=== PATIENT | male | born 1965 | race Caucasian/White ===

== ENCOUNTER 2021-06-06 18:36 | Inpatient (IN) | payer OTHER ==
[~2021-06-06] VITALS: Ht 182.9 cm; Wt 99.8 kg
[~2021-06-06 18:36] MED LIST: ASPI81CH PO; CYCL10 PO; HYDACE5 PO; HYDMOR4 PO; IBUHYD PO; NAPR500 PO; RANI150 PO; RXHYDMOR2 PO
[2021-06-06 19:30] LABS: Hematocrit 43.7 % (37.0-53.0); Hemoglobin 15.1 g/dL (13.5-17.5); Mean Corpuscular HGB 30.9 pg (26.0-34.0); Mean Corpuscular HGB Conc 34.6 g/dL (31.5-36.5); Mean Corpuscular Volume 90 fL (80-100); Platelet Count 209 K/mm3 (150-400); RDW Coefficient Variation 13.1 % (11.7-14.2); RDW Standard Deviation 43.4 fL (35.1-46.3); Red Blood Cell Count 4.88 M/mm3 (4.30-5.90); White Blood Cell Count 10.96 K/mm3 (4.00-11.30)
[2021-06-06 19:52] LABS: Alanine Aminotransfer (ALT/SGP 53 U/L (12-78); Albumin, Blood 3.1 g/dL (3.4-5.0); Albumin/Globulin Ratio 0.7 (0.8-1.8); Alk Phos 47 U/L (50-136); Anion Gap 8 mmol/L (6-16); Aspartate Aminotrans (AST/SGOT 110 U/L (12-37); Bilirubin, Total 0.3 mg/dL (0.1-1.0); Blood Urea Nitrogen 18 mg/dL (8-24); Bun/Creatinine Ratio 18.7 (12.0-20.0); CO2, Blood 25 mmol/L (21-32); Calcium, Blood 8.7 mg/dL (8.5-10.1); Chloride, Blood 101 mmol/L (98-108); Creatinine, Blood 0.96 mg/dL (0.60-1.20); Globulin, Blood 4.4 g/dL (2.2-4.0); Glomerular Filtration Rate >60 (60-); Glucose, Blood 153 mg/dL (70-99); Potassium, Blood 3.8 mmol/L (3.5-5.5); Sodium, Blood 134 mmol/L (136-145); Total Protein, Blood 7.5 g/dL (6.4-8.2)
[2021-06-06 19:56] LABS: BAND PERCENT MAN 1 % (0-8); BASOPHILS PERCENT MAN 0 % (0-2); EOSINOPHILS PERCENT MAN 0 % (0-6); LYMPHOCYTES ABSOLUTE MAN 0.43 K/mm3 (0.84-5.20); LYMPHOCYTES PERCENT MAN 4 % (21-46); MONOCYTES ABSOLUTE MAN 0.21 K/mm3 (0.16-1.47); MONOCYTES PERCENT MAN 2 % (4-13); SEG NEUTROPHILS PERCENT MAN 93 % (41-73); TOTAL CELLS COUNTED 100
[2021-06-06 21:10] LABS: SARS-Cov-2 (COVID-19) PCR, MMC POSITIVE (NEGATIVE)
[2021-06-07 04:00] LABS: Alanine Aminotransfer (ALT/SGP 54 U/L (12-78); Albumin, Blood 2.7 g/dL (3.4-5.0); Albumin/Globulin Ratio 0.6 (0.8-1.8); Alk Phos 47 U/L (50-136); Anion Gap 9 mmol/L (6-16); Aspartate Aminotrans (AST/SGOT 106 U/L (12-37); Bilirubin, Total 0.3 mg/dL (0.1-1.0); Blood Urea Nitrogen 16 mg/dL (8-24); Bun/Creatinine Ratio 15.2 (12.0-20.0); CO2, Blood 23 mmol/L (21-32); Calcium, Blood 8.4 mg/dL (8.5-10.1); Chloride, Blood 101 mmol/L (98-108); Creatinine, Blood 1.05 mg/dL (0.60-1.20); Globulin, Blood 4.5 g/dL (2.2-4.0); Glomerular Filtration Rate >60 (60-); Glucose, Blood 173 mg/dL (70-99); Potassium, Blood 4.1 mmol/L (3.5-5.5); Sodium, Blood 133 mmol/L (136-145); Total Protein, Blood 7.2 g/dL (6.4-8.2)
--- NOTE | 2021-06-07 06:12 | NUR ---
SHIFT SUMMARY PATIENT HAS NOT SLEPT WELL THRU NIGHT. NIGHT HAS PROGRESSED SO HAS HIS OXYGEN NEEDS. STARTED @ 8L NC, INCREASED TO 15L OXYMIZER, THEN REQUIRING NON-REBREATHER OVER THAT, MOVED TO AIR-VO, MAXED SETTINGS QUICKLY, THEN TO CPAP, PRESSURE = 14, 80% AT LAST VIEWING. PT URINATES PER URINAL. VSS. NO C/O PAIN. ASSESSMENT IS CHARTED. WILL CONTINUE TO MONITOR.
[2021-06-07 08:57] LABS: BASOPHILS ABSOLUTE AUTO 0.02 K/mm3 (0.00-0.23); BASOPHILS PERCENT AUTO 0 % (0-2); EOSINOPHILS PERCENT AUTO 0 % (0-6); Hemoglobin 14.1 g/dL (13.5-17.5); IMMATURE GRAN PERCENT AUTO 2 % (0-1); LYMPHOCYTES ABSOLUTE AUTO 0.61 K/mm3 (0.84-5.20); LYMPHOCYTES PERCENT AUTO 5 % (21-46); MONOCYTES ABSOLUTE AUTO 0.18 K/mm3 (0.16-1.47); MONOCYTES PERCENT AUTO 2 % (4-13); Mean Corpuscular HGB 30.5 pg (26.0-34.0); Mean Corpuscular HGB Conc 34.4 g/dL (31.5-36.5); Mean Corpuscular Volume 89 fL (80-100); Mean Platelet Volume 10.6 fL (9.1-12.4); NEUTROPHILS ABSOLUTE AUTO 10.32 K/mm3 (1.96-9.15); NEUTROPHILS PERCENT AUTO 91 % (41-73); Platelet Count 230 K/mm3 (150-400); RDW Coefficient Variation 13.2 % (11.7-14.2); RDW Standard Deviation 42.9 fL (35.1-46.3); Red Blood Cell Count 4.62 M/mm3 (4.30-5.90); White Blood Cell Count 11.33 K/mm3 (4.00-11.30)
[2021-06-07 09:59] LABS: PCO2 Arterial 32.6 mmHg (35-45); PO2 Arterial 66.2 mmHg (80-100); pH Blood Arterial 7.51 (7.35-7.45)
[2021-06-07 10:51] LABS: C-REACTIVE PROTEIN, EXT RANGE >19.000 mg/dL (0.000-0.300); Ferritin, Serum 2712 ng/mL (26-388)
[2021-06-07 14:45] LABS: Source, Urine Catheter
[2021-06-07 14:50] LABS: Appearance, Urine Hazy (Clear); Bilirubin, Urine Neg (Neg); Blood, Urine 4+ (Neg); Color, Urine Yellow (P-Yellow); Glucose Qualitative, Urine Neg (Neg); Ketones, Urine Neg (Neg); Leukocyte Esterase, Urine Neg (Neg); Nitrite, Urine Neg (Neg); Protein, Urine 3+ (Neg); Urobilinogen, Urine NORM (Normal)
[2021-06-07 15:07] LABS: Amorphous Mod (0-Heavy); Bacteria Few /hpf; Red Blood Cells, Urine 0-2 /hpf (0-2); Squamous Epithelial Cells Few /hpf (Few); White Blood Cells, Urine 0-2 /hpf (0-5)
--- NOTE | 2021-06-07 15:18 | NUR ---
PT UPDATE... AT APROX 1400 THE PT'S O2 SATS STARTED TO DROP, THIS RN INCREASED THE PT'S FIO2 UP TO 100% ON CPAP AT 14. RT TORSTEN WAS CALLED AND DR. GARCIA NOTIFIED. PT WAS CHANGED TO BIPAP AT 18/8 AND 80% THIS LASTED APROX 45 MINS BUT THEN HIS O2 SATS STARTED TO DROP AGAIN, PT'S FIO2 WAS INCREASED BACK UP TO 100% PT'S CURRENT O2 SATS ARE 91% ON BIPAP AT 18/8 AND 100%. A CRANE WAS PLACED D/T PT'S ACTIVITY INTOLERANCE. PT'S SON AT THE BEDSIDE FOR VISITING HOURS. AT 1515 DR. GARCIA AT THE BEDSIDE TO ASSESS THE PT. WILL CONTINUE TO MONITOR THE PT.
--- NOTE | 2021-06-07 19:26 | NUR ---
SHIFT SUMMARY.... SINCE PREVIOUS NOTE ON THIS PT THE PT DID REALLY WELL WITH O2 SATS >90% ON THE BIPAP AT 18/8 AND 100%. HOWEVER AT APROX 1800 THE PT HAD A COUGHING FIT AND HIS O2 SATS STARTED TO DROP DOWN TO THE MID 80'S AND THE PT BECAME HYPERTENISVE WITH SBPs IN THE 180'S. PT WAS GIVEN 0.5MG OF IV ATIVAN WHICH HELPED THE PT RELAX AND IMPROVED HIS BREATHING/O2 SATS A LITTLE BIT, THEN THIS RN HAD THE PT ROLL OVER ON HIS LEFT SIDE A MUCH HE COULD TOLERATE IN AN ATTEMPT TO PRONE, THIS ALSO HELPED THE PT'S O2 SATS IMPROVE TO THE HIGH 80'S LOW 90'S. DR. GARCIA NOTIFIED OF THESE NEW CHANGES, NEW ORDERS FOR IV HYDRALAZINE AND TO CHANGE THE BIPAP SETTINGS TO 18/12 100%. PT'S SON IS AT THE BEDSIDE, HE WAS UPDATED ON THE PT'S CONDITION. REPORT GIVEN TO ONCOMING TIANA GASTELUM.
[2021-06-08 04:47] LABS: BASOPHILS ABSOLUTE AUTO 0.01 K/mm3 (0.00-0.23); BASOPHILS PERCENT AUTO 0 % (0-2); EOSINOPHILS PERCENT AUTO 0 % (0-6); Hematocrit 38.8 % (37.0-53.0); Hemoglobin 13.1 g/dL (13.5-17.5); IMMATURE GRAN PERCENT AUTO 1 % (0-1); LYMPHOCYTES ABSOLUTE AUTO 0.67 K/mm3 (0.84-5.20); LYMPHOCYTES PERCENT AUTO 8 % (21-46); MONOCYTES ABSOLUTE AUTO 0.39 K/mm3 (0.16-1.47); MONOCYTES PERCENT AUTO 5 % (4-13); Mean Corpuscular HGB 30.3 pg (26.0-34.0); Mean Corpuscular HGB Conc 33.8 g/dL (31.5-36.5); Mean Corpuscular Volume 90 fL (80-100); Mean Platelet Volume 10.5 fL (9.1-12.4); NEUTROPHILS ABSOLUTE AUTO 6.77 K/mm3 (1.96-9.15); NEUTROPHILS PERCENT AUTO 85 % (41-73); Platelet Count 279 K/mm3 (150-400); RDW Coefficient Variation 13.4 % (11.7-14.2); RDW Standard Deviation 44.5 fL (35.1-46.3); Red Blood Cell Count 4.32 M/mm3 (4.30-5.90); White Blood Cell Count 7.94 K/mm3 (4.00-11.30)
[2021-06-08 05:10] LABS: Albumin, Blood 2.4 g/dL (3.4-5.0); Anion Gap 6 mmol/L (6-16); Blood Urea Nitrogen 25 mg/dL (8-24); Bun/Creatinine Ratio 22.3 (12.0-20.0); CO2, Blood 27 mmol/L (21-32); Calcium, Blood 8.7 mg/dL (8.5-10.1); Chloride, Blood 104 mmol/L (98-108); Creatinine, Blood 1.12 mg/dL (0.60-1.20); Glomerular Filtration Rate >60 (60-); Glucose, Blood 213 mg/dL (70-99); Potassium, Blood 4.3 mmol/L (3.5-5.5); Sodium, Blood 137 mmol/L (136-145)
--- NOTE | 2021-06-08 05:11 | NUR ---
SHIFT SUMMARY PATIENT HAS SLEPT WELL THRU NIGHT. SOME IMPROVEMENT IN RESPIRATORY EFFORT, HOWEVER HAVE INCREASED EPAP TO 12 FROM 8 EARLIER IN SHIFT. MAINTAINING SPO2 ~ 88-[address] GARCIA'S ORDERS. NO C/O PAIN, DYSPNEA. ASSESSMENT IS CHARTED. WILL CONTINUE TO MONITOR.
--- NOTE | 2021-06-08 07:30 | NUR ---
ASSUMED CARE REPORT FROM ORIANA MONTIEL. PT RESTING IN BED. WAKES c VERBAL STIMULI. A&OX 4. PT STATES THE HE IS BREATHING "OK". DENIES NEEDS OTHER THAN REQUESTING ANXIETY MEDS. GIVEN. MANN, ABLE TO REPOSITION SELF INDEPENDENTLY. BIPAP IN PLACE, 18/100%. ELBOW ON MASK CHANGED, ORAL CARE PROVIDED. LUNGS DIMINISHED THROUGHOUT. DRY COUGH. ABLE TO CLEAR SECRETIONS. GOAL TO MAINTAIN SATS >86%. NSR, RATE 70'S. BP STABLE. LR INFUSING AT 75 ML/HR. CRANE PATENT, DRAINING CLEAR YELLOW URINE TO GRAVITY. WILL CONTINUE TO MONITOR.
--- NOTE | 2021-06-08 18:04 | NUR ---
SHIFT SUMMARY PT REMAINED ON BIPAP 100% ENTIRE SHIFT. UNABLE TO TAKE BREAKS D/T O2 SATS. ORAL CARE PROVIDED THROUGH ELBOW. O2 SATS 86-93% THIS SHIFT. LUNGS DIM THROUGHOUT. DRY COUGH. A&OX 4. PT SLEPT MOST OF SHIFT. VISITED c SON FOR 3 HOURS. BP STABLE, HR 70'S, NSR. CRANE PATENT, DRAINING TO GRAVITY. LR CONTINUES AT 75 ML/HR. PT ABLE TO SHIFT AND REPOSITION SELF IN BED. WILL CONTINUE TO MONITOR UNTIL REPORT TO ONCOMING NURSE.
[2021-06-09 04:19] LABS: Albumin, Blood 2.4 g/dL (3.4-5.0); Anion Gap 5 mmol/L (6-16); Blood Urea Nitrogen 26 mg/dL (8-24); Bun/Creatinine Ratio 26.9 (12.0-20.0); CO2, Blood 28 mmol/L (21-32); Calcium, Blood 8.5 mg/dL (8.5-10.1); Chloride, Blood 108 mmol/L (98-108); Creatinine, Blood 0.97 mg/dL (0.60-1.20); Glomerular Filtration Rate >60 (60-); Glucose, Blood 202 mg/dL (70-99); Phosphorus, Blood 3.2 mg/dL (2.5-4.9); Potassium, Blood 4.5 mmol/L (3.5-5.5); Sodium, Blood 141 mmol/L (136-145)
--- NOTE | 2021-06-09 04:39 | NUR ---
SHIFT SUMMARY PATIENT HAS SLEPT WELL THRU NIGHT. HAVE NOTICED THAT WHILE PT IS DEEPLY ASLEEP, OR FOR ABOUT AN HOUR AFTER ATIVAN ADMINISTRATION, PT MAINTAINS SPO2 ~ 92%, MAY HAVE NEED FOR PRECEDEX, WILL BRING UP WITH PHYSICIAN. NO C/O PAIN. ASSESSMENT IS CHARTED. VSS. WILL CONTINUE TO MONITOR.
[2021-06-09 06:06] LABS: PCO2 Arterial 37.7 mmHg (35-45); PO2 Arterial 55.2 mmHg (80-100); pH Blood Arterial 7.49 (7.35-7.45)
--- NOTE | 2021-06-09 07:46 | NUR ---
AM NOTE... ASSUMED CARE OF PT AT 0700, PT IS A&Ox4. PT IS ON BIPAP AT 18/14 AND 100% FIO2 WITH O2 SATS 88-90%. L/S CLEAR AND VERY DIM T/O RR IN THE 30'S-40'S. PT'S O2 SATS DROP VERY QUICKLY WITH ANY TYPE OF ACTIVITY BUT PT IS ABLE TO SLOWLY RECOVER AT THIS TIME. PT IS IN NSR IN THE 70'S WITH A STABLE BP. NO EDEMA NOTED ON ASSESSMENT. BT PRESENT AND HYPOACTIVE, ABD HAS MILD DISTENTION AND IS FIRM BUT NONTENDER TO PALP. PT'S CRANE IS PATENT AND DRAINING CLEAR DARK YELLOW URINE TO GRAVITY. PT HAS NOT HAD A BM SINCE THE 4TH. LR RUNNING AT 75MLS/HR. ORAL CARE DONE THIS AM WITH THE BIPAP ORAL CARE KITS. CALL LIGHT IN REACH WILL CONITNUE TO MONITOR.
--- NOTE | 2021-06-09 11:22 | NUR ---
PT UPDATE.... PT WAS STARTED ON PRECEDEX AT 0.3MCG/KG/HR D/T PT'S INCREASING ANXIETY. PT'S BP STABLE AND HR CONTINUES TO BE IN THE 70'S AFTER THE DRIP WAS STARTED. THE PT'S MRSA NARES SWAB WAS COLLECTED AND SENT TO THE LAB, THE PT DENIES ANY SPUTUM PRODUCTION AT ALL DURING THIS TIME. PT CONTINUES TO DESAT QUICKLY WITH ANY MOVEMENT, PT'S O2 SATS ARE CURRENTLY AT 85% WITH NO CHANGE, DR. GARCIA NOTIFIED. WILL CONTINUE TO MONITOR.
--- NOTE | 2021-06-09 16:04 | NUR ---
PT UPDATE... AT 1400 THE PT'S SON CAME FOR VISITING HOURS, THE PT'S PRECEDEX WAS DECREASED FROM 0.3MCG TO 0.1MCG. AT APROX 1500 THE PT WAS ENCOURAGED BY THIS RN TO TURN OVER FROM HIS RIGHT SIDE TO HIS FAR LEFT TO "SEMI-PRONE" THE PT HELPED WITH THE ROLL AND HIS O2 SATS DROPPED DOWN TO 78-79%. THE PRECEDEX WAS TURNED UP TO 0.4MCG AND THE PT WAS GIVEN 1MG IV ATIVAN. THE PT'S O2 SATS STAYED AT 80-82% FOR APROX 30 MINS THEN SLOWLY INCREASED UP TO 86-88%. ANY TIME THE PT EVEN SLIGHTLY MOVES HIS O2 SATS DROP QUICKLY AND HE TAKES AWHILE TO RECOVER. WILL CONTINUE TO MONITOR.
--- NOTE | 2021-06-09 17:57 | NUR ---
SHIFT SUMMARY... SINCE PREVIOUS NOTE THE PT'S O2 SATS IMPROVED UP TO 93%, THE PRECEDEX IS CURRENTLY AT 0.4 MCG/KG/HR WITH THIS DOSE THE PT SLEEPS BUT WAKES TO VERBAL STIMULI AND LIGHT TOUCH. WHEN THE PT IS AWAKE HIS RR INCREASES TO THE 30'S-40'S BUT WHILE HE IS SLEEPING HIS RR IS IN THE 20'S. PT'S SON BREE AT THE BEDSIDE FOR VISITING HOURS, AN UPDATE WAS PROVIDED TO HIM AND THE PT'S . THE PT'S STATED THAT THEY WANTED THE PT INTUBATED IF "NEEDED" THE PT ALSO STATED THAT THIS WAS HIS WISH. PT'S CRANE IS PATENT AND DRAINING CLEAR DARK YELLOW URINE TO GRAVITY. PT HAS NOT HAD A BM SINCE ADMIT HOWEVER THE PT HAS BEEN NPO SEVERAL DAYS PRIOR TO ADMIT D/T HIS RESPIRATORY STATUS. PT'S BEDBATH WAS DEFFERED D/T HIS INABILITY TO MOVE WITHOUT HIS O2 SATS DROPPING. DR. GARCIA UPDATED ON THE EVENTS OF THE DAY. ORAL CARE WAS DONE SEVERAL TIMES T/O THIS SHIFT. CALL LIGHT IN REACH WILL CONTINUE TO MONITOR UNTIL REPORT IS GIVEN TO ONCOMING RN.
[2021-06-09 19:28] LABS: PO2 Arterial 66.9 mmHg (80-100); pH Blood Arterial 7.49 (7.35-7.45)
[2021-06-10 04:44] LABS: BASOPHILS ABSOLUTE AUTO 0.03 K/mm3 (0.00-0.23); BASOPHILS PERCENT AUTO 0 % (0-2); EOSINOPHILS PERCENT AUTO 0 % (0-6); Hematocrit 40.6 % (37.0-53.0); Hemoglobin 13.5 g/dL (13.5-17.5); IMMATURE GRAN ABSOLUTE AUTO 0.21 K/mm3 (0.00-0.10); IMMATURE GRAN PERCENT AUTO 2 % (0-1); LYMPHOCYTES ABSOLUTE AUTO 0.54 K/mm3 (0.84-5.20); LYMPHOCYTES PERCENT AUTO 5 % (21-46); MONOCYTES ABSOLUTE AUTO 0.73 K/mm3 (0.16-1.47); MONOCYTES PERCENT AUTO 6 % (4-13); Mean Corpuscular HGB 30.3 pg (26.0-34.0); Mean Corpuscular HGB Conc 33.3 g/dL (31.5-36.5); Mean Corpuscular Volume 91 fL (80-100); NEUTROPHILS PERCENT AUTO 88 % (41-73); Platelet Count 358 K/mm3 (150-400); RDW Coefficient Variation 13.2 % (11.7-14.2); RDW Standard Deviation 44.6 fL (35.1-46.3); Red Blood Cell Count 4.45 M/mm3 (4.30-5.90); White Blood Cell Count 12.01 K/mm3 (4.00-11.30)
[2021-06-10 05:00] LABS: Albumin, Blood 2.3 g/dL (3.4-5.0); Anion Gap 4 mmol/L (6-16); Blood Urea Nitrogen 25 mg/dL (8-24); Bun/Creatinine Ratio 30.8 (12.0-20.0); CO2, Blood 27 mmol/L (21-32); Calcium, Blood 8.2 mg/dL (8.5-10.1); Chloride, Blood 110 mmol/L (98-108); Creatinine, Blood 0.81 mg/dL (0.60-1.20); Glomerular Filtration Rate >60 (60-); Glucose, Blood 229 mg/dL (70-99); Phosphorus, Blood 3.7 mg/dL (2.5-4.9); Potassium, Blood 4.9 mmol/L (3.5-5.5); Sodium, Blood 141 mmol/L (136-145)
--- NOTE | 2021-06-10 05:49 | NUR ---
SHIFT SUMMARY PATIENT HAS SLEPT WELL THRU NIGHT. GAVE IV PUSH ATIVAN TWICE FOR BREATH-THRU ANXIETY, BUT MOSTLY CONTROLLED ON PRECEDEX DRIP. HAS ALLOWED PATIENT TO MAINTAIN SPO2 92-96% THRU ENTIRE NIGHT. NO ACUTE CHANGES TO NOTE. ASSESSMENT IS CHARTED. NO C/O PAIN. VSS. WILL CONTINUE TO MONITOR.
--- NOTE | 2021-06-10 07:30 | NUR ---
PT DROWSY, BUT OPENS EYES TO VOICE. PT ORIENTED AND FOLLOWING COMMANDS. SKIN IS PALE AND CLAMMY. ECG SHOWS SB TO SR AND BP WDL FOR PT. LUNGS DIMIMISHED THROUGH OUT. RR 34-48. BIPAP 18/14 -FIO2 100%-SATS >86% PRECEDEX TITRATED UP TO 0.6 MCG/KG/MIN. PT NOT TOLERTAING BREAKS FROM BIPAP-THEREFORE, NPO. PT DENIES NAUSEA OR GI DISTRESS. HE HAS NOT HAD A BM FOR SEVERAL DAYS, BUT PO INTAKE HAS BEEN LIMITED. CRANE TO BSD WITH SMALL AMOUNT OF DARK, YELLOW URINE OUTPUT. SKIN OVERALL IS C/D/I. PT POSITIONED TO COMFORT ON RIGHT SIDE-CALL LIGHT WITHIN REACH.
[2021-06-10 10:38] LABS: PCO2 Arterial 43.5 mmHg (35-45); PO2 Arterial 95.6 mmHg (80-100); pH Blood Arterial 7.39 (7.35-7.45)
--- NOTE | 2021-06-10 10:41 | NUR ---
0930: SATS TRENDING IN THE 70'S. WHEN RN ENTERED THE ROOM, PT WAS FOUND WITH THE BIPAP OFF. IMMEDIATELY, REPLACED BIPAP MASK-PT APPEARS CONFUSED AND AGITATED. SKIN VERY DIAPHORETIC. RR 40'S-50'S. INCREASED PRECEDEX TO 0.7 MCG/KG/MIN AND SATS IMPROVED TO LOW 80'S. DR. MCKEON SUMMONED TO THE BEDSIDE. 0943: PT MED WITH PROPOFOL 50 MG IVP X 1 AND SUCCS 100 MG IVP X 1 IN PREP FOR RSI. 0944: PT DIFFICULT TO BAG, MED WITH ADDITIONAL 50 MG OF PROPOFOL IVP. 0944: PT INTUBATED WITH 8.0 ETT/27 @ TEETH-+COLOR CHANGE AND BILATERAL BREATH SOUNDS AUSCULTATED. VENT: AC 16, TV 500, PEEP 15, FIO2 100%-PT DIFFICULT TO VENTILATE-0947: MED WITH PROPOFOL 50 MG IVP PT ASYNCHRONIS WITH VENT-PROPOFOL DRIP INITIATED @ 50 MCG/KG/MIN. 0957: PT CONTINUES TO BE ASYNCHRONIS WITH VENT-MED WITH SUCCS 100MG IVP X [address] MCKEON ORDER. 1000: OGT PLACED-CH1V DONE AND BOTH TUBE PLACEMENTS CONFIRMED BY DR. MCKEON.SATS TRENDING 80'S-PEEP TITRATED UP TO 18. 1020: PT CONTINUES TO BE ASYNCHRONOUS WITH THE VENT-NIMBEX DRIP INITIATED @ 1.5 MCG-TO4 PRIOR TO INITIATED NIMBEX 4/. 1030: RR 16-RESPIRIATIONS SYNCHRONOUS WITH THE VENTILATOR-ABG DONE.
--- NOTE | 2021-06-10 11:30 | NUR ---
PT REMAINS INTUBATED, SEDATED, AND PARALYZED. TO4 4/4 WITH NIMBEX @ 1.5 MCG/KG/MIN. SYNCHRONOUS WITH VENT- PROPOFOL @ 50 MCG/KG/MIN. LUNGS DIMINISHED THROUGH OUT. NO COUGH, GAG, OR SWALLOW-NO ETT SECRETIONS AT THIS TIME. SATS >90% ON FIO2 100%. ANTICIPATE CT OF CHEST LATER TODAY.OGT WITH SMALL AMOUNT OF GREEN LIQUID DRAINAGE. CRANE TO BSD WITH MODERATE AMOUNT OF DARK, YELLOW URINE TO UROMETER.
--- NOTE | 2021-06-10 13:00 | NUR ---
PT TO CT SCAN OF CHEST VIA BED. SATS DOWN TO 80'S WITH PT LYING FLAT ON THE CT TABLE. ONCE CT COMPLETE AND PT BACK IN BED-ELEVATED THE HOB AND SATS RETURNED TO >90%-FIO2 CONTINUES @ 100%.
--- NOTE | 2021-06-10 14:00 | NUR ---
PT PLACED IN PRONE POSITION-TOLERATED WELL-SATS 95-98%. PT LIZETTE JERNIGAN IN FOR BRIEF VISIT AND UPDATE-UPDATED TO CURRENT VS AND PLAN OF CARE.
--- NOTE | 2021-06-10 16:00 | NUR ---
PT REMAINS PRONE. REPOSITIONED TO HEAD TURNED TO THE LEFT WITH RIGHT ARM UP AND LEFT ARM DOWN. LUNGS REMAIN DIMINISHED IN THE BASES L>R. FIO2 TITRATED DOWN TO 75% PER DR. MIKE Harry OGTF VITAL HIGH PROTEIN STARTED @ 20 CC/HR WITH H20 30 CC EVERY FOUR HOURS.
--- NOTE | 2021-06-10 18:00 | NUR ---
PT REMAINS PRONE-HEAD AND EXTREMTITES REPOSITIONED. MAINTAINS SATS>90% ON FIO2 75% CBG 309-DR. MCKEON AWARE-HIGH SCALE REGULAR INSULIN ORDERED AND PT COVERED ACCORDINGLY-SEE EMAR. INTAKE 1475 VS. 950 OUT THIS SHIFT. BOTH PT SPOUSE TRES AND HIS SON DELON UPDATED.
[2021-06-11 03:51] LABS: BASOPHILS ABSOLUTE AUTO 0.03 K/mm3 (0.00-0.23); BASOPHILS PERCENT AUTO 0 % (0-2); EOSINOPHILS PERCENT AUTO 0 % (0-6); Hematocrit 43.7 % (37.0-53.0); Hemoglobin 14.1 g/dL (13.5-17.5); IMMATURE GRAN ABSOLUTE AUTO 0.59 K/mm3 (0.00-0.10); IMMATURE GRAN PERCENT AUTO 3 % (0-1); LYMPHOCYTES ABSOLUTE AUTO 0.46 K/mm3 (0.84-5.20); LYMPHOCYTES PERCENT AUTO 3 % (21-46); MONOCYTES ABSOLUTE AUTO 0.74 K/mm3 (0.16-1.47); MONOCYTES PERCENT AUTO 4 % (4-13); Mean Corpuscular HGB 30.8 pg (26.0-34.0); Mean Corpuscular HGB Conc 32.3 g/dL (31.5-36.5); Mean Corpuscular Volume 95 fL (80-100); Mean Platelet Volume 10.2 fL (9.1-12.4); NEUTROPHILS PERCENT AUTO 90 % (41-73); Platelet Count 384 K/mm3 (150-400); RDW Coefficient Variation 13.4 % (11.7-14.2); RDW Standard Deviation 47.8 fL (35.1-46.3); Red Blood Cell Count 4.58 M/mm3 (4.30-5.90); White Blood Cell Count 18.42 K/mm3 (4.00-11.30)
[2021-06-11 04:04] LABS: PCO2 Arterial 49.4 mmHg (35-45); PO2 Arterial 91.8 mmHg (80-100); pH Blood Arterial 7.34 (7.35-7.45)
[2021-06-11 04:07] LABS: Anion Gap 5 mmol/L (6-16); Blood Urea Nitrogen 31 mg/dL (8-24); Bun/Creatinine Ratio 28.2 (12.0-20.0); CO2, Blood 28 mmol/L (21-32); Calcium, Blood 8.5 mg/dL (8.5-10.1); Chloride, Blood 109 mmol/L (98-108); Glomerular Filtration Rate >60 (60-); Glucose, Blood 272 mg/dL (70-99); Magnesium, Blood 3.4 mg/dL (1.6-2.4); Phosphorus, Blood 4.1 mg/dL (2.5-4.9); Sodium, Blood 142 mmol/L (136-145)
--- NOTE | 2021-06-11 07:00 | NUR ---
SHIFT SUMMARY PATIENT DID WELL THRU NIGHT. WAS ABLE TO TURN FIO2 TO LOW OF 40% WHILE PRONE, DID DESATURATE TO LOW OF 79% DURING SUPINATION, RECOVERED QUICKLY, TURNED FIO2 DOWN TO CURRENT SETTING OF 70%. NO B.M. TONIGHT DESPITE STARTING COLACE AND TUBE FEEDINGS. INCREASED PROPOFOL. NO FURTHER CHANGES TO NOTE. ASSESSMENT IS CHARTED. VSS. WILL CONTINUE TO MONITOR.
--- NOTE | 2021-06-11 07:30 | NUR ---
PT REMAINS INTUBATED, SEDATED, AND PARALYZED. TO4 3/4 WITH NIMBEX @ 1.5 MCG/KG/MIN. SYNCHRONOUS WITH THE VENT WITH PROPOFOL @ 60 MCG/KG/MIN. TEMP 99.7-BLANKETS REMOVED AND FAN IN PLACE. ECG SHOWS SR. SBP TRENDING 90-110'S. LUNGS DIMINISHED L>R. ETT TO VENT:AC 16, TV 500, PEEP 18, FIO2 70% PT REPOSITIONED TO RIGHT SIDE-SATS DOWN TO 80'S. FIO2 UP TO 100% X 5 MINUTES BEFORE SATS RETURNED TO >90%. SCANT AMOUNT OF THICK, WHITE ETT SECRETIONS. PT TOLERATING OGTF WELL 65 CC RESIDUAL REFED. CRANE TO BSD WITH SMALL AMOUNT OF DARK, YELLOW URINE OUT. SCLERAL EDEMA AND TRACE GENERALIZED EDEMA NOTED.
--- NOTE | 2021-06-11 12:00 | NUR ---
PT REMAINS INTUBATED, SEDATED, AND PARALYZED. TO4 4/4 WITH NIMBEX @ 1.5 MCG/KG/MIN. RR 16 WITH PROPOFOL @ 60 MCG/KG/MIN-PT SYNCHRONOUS WITH THE VENT. LUNGS REMAIN DIMINISHED-ESPECIALLY IN THE BASES. SATS>90% ON FIO2 70% MINIMAL ETT SECRETIONS. OGTF INCREASED TO NEW GOAL RATE OF 30 CC/HR.
--- NOTE | 2021-06-11 14:12 | NUR ---
SATS 97%-FIO2 TITRATED DOWN TO 65%.
--- NOTE | 2021-06-11 16:00 | NUR ---
PT SYNCHRONOUS WITH VENT WITH NIMBEX @ 1.5 MCG/KG/MIN AND PROPOFOL @ 60 MCG/KG/MIN. TO4 CONTINUES 02/03. LUNGS DIMINISHED IN THE BASES. FIO2 TITRATED DOWN TO 55% AND MAINTAINS SATS>90% -TOLERATING OGTF @ 30 CC/HR (GOAL). PT CRISPIN UPDATED TO CURRENT STATUS, VS, AND PLAN OF CARE.
--- NOTE | 2021-06-11 18:02 | NUR ---
PT MAINTAINING SATS>90% ON FIO2 55%-NO ACUTE DISTRESS NOTED. INTAKE 1774 VS. 870 OUT THIS SHIFT.
[2021-06-12 03:41] LABS: BASOPHILS ABSOLUTE AUTO 0.05 K/mm3 (0.00-0.23); BASOPHILS PERCENT AUTO 0 % (0-2); EOSINOPHILS ABSOLUTE AUTO 0.03 K/mm3 (0.00-0.68); EOSINOPHILS PERCENT AUTO 0 % (0-6); Hematocrit 38.8 % (37.0-53.0); Hemoglobin 12.7 g/dL (13.5-17.5); IMMATURE GRAN ABSOLUTE AUTO 0.99 K/mm3 (0.00-0.10); IMMATURE GRAN PERCENT AUTO 5 % (0-1); LYMPHOCYTES ABSOLUTE AUTO 0.76 K/mm3 (0.84-5.20); LYMPHOCYTES PERCENT AUTO 4 % (21-46); MONOCYTES ABSOLUTE AUTO 0.51 K/mm3 (0.16-1.47); MONOCYTES PERCENT AUTO 3 % (4-13); Mean Corpuscular HGB Conc 32.7 g/dL (31.5-36.5); Mean Corpuscular Volume 95 fL (80-100); Mean Platelet Volume 10.5 fL (9.1-12.4); NEUTROPHILS ABSOLUTE AUTO 17.85 K/mm3 (1.96-9.15); NEUTROPHILS PERCENT AUTO 89 % (41-73); Platelet Count 383 K/mm3 (150-400); RDW Coefficient Variation 13.4 % (11.7-14.2); RDW Standard Deviation 46.6 fL (35.1-46.3); White Blood Cell Count 20.19 K/mm3 (4.00-11.30)
[2021-06-12 03:56] LABS: Anion Gap 3 mmol/L (6-16); Blood Urea Nitrogen 32 mg/dL (8-24); CO2, Blood 30 mmol/L (21-32); Calcium, Blood 8.2 mg/dL (8.5-10.1); Chloride, Blood 110 mmol/L (98-108); Glomerular Filtration Rate >60 (60-); Glucose, Blood 257 mg/dL (70-99); Magnesium, Blood 3.3 mg/dL (1.6-2.4); Phosphorus, Blood 2.7 mg/dL (2.5-4.9); Potassium, Blood 4.9 mmol/L (3.5-5.5); Sodium, Blood 143 mmol/L (136-145)
--- NOTE | 2021-06-12 05:30 | NUR ---
SHIFT SUMMARY PATIENT HAS DONE WELL TONIGHT. PRONED PER DR MCKEON @ 23:00, WILL LEAVE FOR DAYSHIFT TO [place]. TOLERATING ALL TREATMENTS WELL AT THIS TIME. NO S/S OF LACK OF SEDATION, NO B.I.S. AVAILABLE. T.O.F. MAINTAINED @ 11/05. ASSESSMENT IS CHARTED. VSS. WILL CONTINUE TO MONITOR.
--- NOTE | 2021-06-12 11:22 | NUR ---
AM NOTE... ASSUMED CARE OF PT AT 0700, PT IS INTUBATED, SEDATED AND PARALYZED ON NIMBEX AT 1.5MCG. NO BIS MONITOR IS AVAILABLE AT THIS TIME, PT IS ON PROPOFOL AT 60MCG INCREASES WITH SEDATION AND IV PUSHES HAVE BEEN GIVEN ADJUNCTS TO SEDATION WHEN THE PT'S SBP STARTS TO INCREASE ABOVE 130'S. L/S CLEAR AND DIM T/O. PT IS IN SR IN THE 70'S, BP STABLE AT THIS TIME. PT HAS TRACE EDEMA NOTED TO HIS BLE. BT PRESENT AND HYPOACTIVE, ABD IS SOFT AND NONTENDER TO PALP. CRANE IS PATENT AND DRAINING TO GRAVITY. AT APROX 0900 DR[address] MCKEON AT THE BEDSIDE FOR ASSESSMENT, AT THIS TIME IT WAS NOTED THE PT'S BP WAS STARTING TO TREND UP TO THE 170'S, THE NIMBEX WAS STOPPED TO ASSESS THE PT'S SEDATION LEVEL WITH THE INTENT TO KEEP THE NIMBEX OFF IF POSSIBLE. THE PT STARTED TO COUGH AND BREATH AGAINST THE VENT, PT WAS GIVEN FENTANYL IV PUSH OF 50MCG AND ATIVAN IV 4MG WAS GIVEN ALONG WITH AN INCREASE OF THE PROPOFOL UP TO 70MCG. AT THIS TIME THE PT HAS BEEN TOLERATING THE VENT WELL SO FAR. WILL CONTINUE TO MONITOR.
--- NOTE | 2021-06-12 17:53 | NUR ---
SHIFT SUMMARY..... PT CONTINUES TO HAVE SOFT BPs OFF AND ON T/O THE SHIFT, DR. MCKEON AWARE. PT'S RIGHT GROIN CENTRAL LINE WAS D/C'd WNL, APROX 2 HOURS LATER UPON ASSESSMENT THE PT'S RIGHT GROIN SITE WAS BLEEDING, PRESSURE WAS HELD FOR 10 MINS AND A NADIR DRESSING WAS APPLIED. ALSO NOTED THE PT HAS BEEN HAVING RUNS OF ACCELERATED JUNCTIONAL RHYTHM. DR. MCKEON AWARE. THE PT WAS STARTED ON HEPARIN GTT RUNNING AT 15 UNITS/KG/HR PER ORDERS. PT'S TUBE FEEDS RUNNING PER ORDERS WITH NO RESIDUALS NOTED. PT'S CRANE IS PATENT AND DRAINING TO GRAVITY. PT'S RECTAL TUBE IS PATENT AND HAS DRAINED A SCANT AMOUNT OF LQIUID BROWN STOOL. PT'S VENT SETTINGS HAVE NOT CHANGED BUT THERE HAS BEEN A NOTICABLE DECREASE IN THE PT'S TRACHIAL SECRETIONS THIS AFTERNOON. WILL CONTINUE TO MONITOR UNTIL REPORT IS GIVEN TO ONCOMING RN.
--- NOTE | 2021-06-12 18:17 | NUR ---
SHIFT SUMMARY... PT WAS PRONED UNTIL 1700 THEN UNPRONED TO FOWLERS WITH 3 PEOPLE. PT'S FIO2 HAD TO BE INCREASED FROM 55% TO 100%. PT'S CURRENT VENT SETTINGS ARE 16/500/14/100% WITH O2 SATS 96%. PT STILL HAS VERY SMALL TO SCANT AMOUNT OF TRACHIAL SECRETIONS. PT'S BP HAS BEEN STABLE T/O THE SHIFT. PT HAS BEEN OFF OF THE NIMBEX SINCE APROX 1015 THIS AM. PROPFOL HAS BEEN RUNNING AT 70MCG/HR ALONG WITH FREQUENT IV PUSHES OF ATIVAN AND FENTANYL. PT'S CRANE IS PATENT AND DRAINING TO GRAVITY. PT HAS NOT HAD A BM THIS SHIFT. PT'S FAMILY UPDATED ON THE PT'S CONDITION AND PLAN OF CARE. WILL CONTINUE TO MONITOR UNTIL REPORT IS GIVEN TO ONCOMING RN.
[2021-06-13 03:35] LABS: BASOPHILS ABSOLUTE AUTO 0.07 K/mm3 (0.00-0.23); BASOPHILS PERCENT AUTO 0 % (0-2); EOSINOPHILS ABSOLUTE AUTO 0.04 K/mm3 (0.00-0.68); EOSINOPHILS PERCENT AUTO 0 % (0-6); Hematocrit 38.5 % (37.0-53.0); Hemoglobin 12.7 g/dL (13.5-17.5); IMMATURE GRAN ABSOLUTE AUTO 1.22 K/mm3 (0.00-0.10); IMMATURE GRAN PERCENT AUTO 6 % (0-1); LYMPHOCYTES ABSOLUTE AUTO 0.56 K/mm3 (0.84-5.20); LYMPHOCYTES PERCENT AUTO 3 % (21-46); MONOCYTES ABSOLUTE AUTO 0.73 K/mm3 (0.16-1.47); MONOCYTES PERCENT AUTO 3 % (4-13); Mean Corpuscular HGB 31.1 pg (26.0-34.0); Mean Corpuscular Volume 94 fL (80-100); Mean Platelet Volume 10.4 fL (9.1-12.4); NEUTROPHILS ABSOLUTE AUTO 18.74 K/mm3 (1.96-9.15); NEUTROPHILS PERCENT AUTO 88 % (41-73); Platelet Count 402 K/mm3 (150-400); RDW Coefficient Variation 13.4 % (11.7-14.2); RDW Standard Deviation 46.3 fL (35.1-46.3); Red Blood Cell Count 4.09 M/mm3 (4.30-5.90); White Blood Cell Count 21.36 K/mm3 (4.00-11.30)
[2021-06-13 03:52] LABS: Anion Gap 2 mmol/L (6-16); Blood Urea Nitrogen 30 mg/dL (8-24); CO2, Blood 29 mmol/L (21-32); Calcium, Blood 7.7 mg/dL (8.5-10.1); Chloride, Blood 111 mmol/L (98-108); Creatinine, Blood 0.81 mg/dL (0.60-1.20); Glomerular Filtration Rate >60 (60-); Glucose, Blood 300 mg/dL (70-99); Magnesium, Blood 3.4 mg/dL (1.6-2.4); Phosphorus, Blood 2.6 mg/dL (2.5-4.9); Sodium, Blood 142 mmol/L (136-145)
[2021-06-13 04:19] LABS: PCO2 Arterial 54.4 mmHg (35-45); PO2 Arterial 64.5 mmHg (80-100); pH Blood Arterial 7.36 (7.35-7.45)
--- NOTE | 2021-06-13 07:56 | NUR ---
SHIFT SUMMARY PATIENT DID OK THRU NIGHT. HAD DIFFICULT TIME MAINTAINING SEDATION DESPITE FREQUENT ATIVAN/FENTANYL ADMINISTRATION, STARTED PRECEDEX AND RESTARTED NIMBEX DUE TO COUGHING FITS WITH EVEN THE MOST MINOR STIMULATION. DECICED TO RESTART NIMBEX PT DESATURATED TO 82% WITH MIDNIGHT BOOST/REPOSITION, HAD PROLONGED COUGHING FIT, TOOK LONG TIME TO GET SPO2 BACK IN 90s. TURNED PT IN PRONE POSITION @ 00:30 WITH HELP FROM RESPIRATORY THERAPY. TOLERATING TUBE FEEDS WELL. ASSESSMENT IS CHARTED. VSS. WILL CONTINUE TO MONITOR.
--- NOTE | 2021-06-13 09:05 | NUR ---
AM NOTE... ASSUMED CARE OF PT AT 0700, PT IS INTUBATED SEDATED AND PARALYZED ON NIMBEX AT 1MCG, PROPOFOL AT 70MCG AND PRECEDEX AT 0.7MCG. PT IS CURRENTLY PRONED. PT'S TOF IS 4/4 ON 9. PT IS BREATHING WITH THE VENT AT 16 RR/HR. PT'S VENT SETTINGS ARE 16/500/14/85% WITH O2 SATS >92%. L/S CLEAR AND DIM T/O. BT PRESENT AND HYPOACTIVE ABD IS SOFT TO PALP. PT HAS TRACE EDEMA NOTED TO HIS BLE. ALSO NOTED THERE IS A SLIGHT INCREASE OF TRACHIAL SECRETIONS, SECRETIONS ARE THICK CLEAR/MCINTYRE. PT'S VS STABLE A THIS TIME, BP STABLE, PT IS IN SR IN THE 60'S-70'S. PT'S TUBE FEEDS ARE RUNNING AT 30MLS/HR PER ORDERS. A RESIDUAL OF 300MLS WAS NOTED THIS AM, 250MLS WERE REINSTILLED. PROVIDER AWARE. AT APROX 0800 THE PT'S FIO2 WAS DECREASED FROM 85% TO 80% AND THE PT'S NIMBEX WAS TITRATED FROM 1MCG TO 0.5MCG. CURRENTLY THE PT'S O2 SATS ARE >95%. WILL CONTINUE TO MONITOR.
--- NOTE | 2021-06-13 18:52 | NUR ---
SHIFT SUMMARY.... PT WAS UNPRONED AT 1700, CREPITUS WAS NOTED TO THE PT'S LEFT NECK AND UPPER CHEST WALL. PT'S HR HAS TRENDED DOWN TO THE MID TO LOW 50'S THIS SHIFT, PT'S BP CONTINUES TO BE STABLE. PT'S PRECEDEX AND PROPFOL WERE TITRATED DOWN TO 0.6 AND 65MCG TO SEE IF THIS WOULD IMPROVE THE PT'S HR, HOWEVER NO CHANGE HAS OCCURED OF YET. PT'S TUBE FEEDING WERE HELD AT 1200 D/T RESIDUALS OF 650MLS, TUBE FEEDS TO BE RESTARTED AT 1900, AN ORDER FOR IV REGALEN WAS OBTAINED FOR HIGH RESIDUALS. PT'S CRANE IS PATENT AND DRAINING TO GRAVITY, PT HAS NOT HAD A BM, PT WAS GIVEN MILK OF MAG AND DOCUSATE THIS SHIFT, PROVIDER IS AWARE. PT'S WAS UPDATED SEVERAL TIMES T/O THIS SHIFT. WILL CONTINUE TO MONITOR UNTIL REPORT IS GIVEN TO ONCOMING RN.
[2021-06-14 04:33] LABS: BASOPHILS ABSOLUTE AUTO 0.05 K/mm3 (0.00-0.23); BASOPHILS PERCENT AUTO 0 % (0-2); EOSINOPHILS ABSOLUTE AUTO 0.05 K/mm3 (0.00-0.68); EOSINOPHILS PERCENT AUTO 0 % (0-6); Hematocrit 39.6 % (37.0-53.0); Hemoglobin 12.9 g/dL (13.5-17.5); IMMATURE GRAN ABSOLUTE AUTO 1.03 K/mm3 (0.00-0.10); IMMATURE GRAN PERCENT AUTO 6 % (0-1); LYMPHOCYTES ABSOLUTE AUTO 0.53 K/mm3 (0.84-5.20); LYMPHOCYTES PERCENT AUTO 3 % (21-46); MONOCYTES ABSOLUTE AUTO 0.69 K/mm3 (0.16-1.47); MONOCYTES PERCENT AUTO 4 % (4-13); Mean Corpuscular HGB 30.7 pg (26.0-34.0); Mean Corpuscular HGB Conc 32.6 g/dL (31.5-36.5); Mean Corpuscular Volume 94 fL (80-100); Mean Platelet Volume 10.7 fL (9.1-12.4); NEUTROPHILS ABSOLUTE AUTO 14.83 K/mm3 (1.96-9.15); NEUTROPHILS PERCENT AUTO 86 % (41-73); Platelet Count 409 K/mm3 (150-400); RDW Coefficient Variation 13.4 % (11.7-14.2); RDW Standard Deviation 46.6 fL (35.1-46.3); White Blood Cell Count 17.18 K/mm3 (4.00-11.30)
[2021-06-14 04:48] LABS: Anion Gap 3 mmol/L (6-16); Blood Urea Nitrogen 29 mg/dL (8-24); Bun/Creatinine Ratio 37.4 (12.0-20.0); CO2, Blood 29 mmol/L (21-32); Calcium, Blood 7.7 mg/dL (8.5-10.1); Chloride, Blood 112 mmol/L (98-108); Creatinine, Blood 0.78 mg/dL (0.60-1.20); Glomerular Filtration Rate >60 (60-); Glucose, Blood 265 mg/dL (70-99); Magnesium, Blood 3.3 mg/dL (1.6-2.4); Phosphorus, Blood 2.9 mg/dL (2.5-4.9); Potassium, Blood 5.3 mmol/L (3.5-5.5); Sodium, Blood 144 mmol/L (136-145)
--- NOTE | 2021-06-14 06:59 | NUR ---
SHIFT SUMMARY PATIENT HAS TOLERATED PRONING WELL. HAVE BEEN ABLE TO DECREASE FIO2 TO 60% WHILE PRONED FROM 85% AT START OF SHIFT. USING ATIVAN PUSHES FOR SEDATION ADJUNCT, HAVE BEEN ABLE TO DECREASE PROPOFOL TO 35 MCG/KG/MIN, PRECEDEX TO 0.5 MCG/KG/HR. HAD TO INCREASE NIMBEX TO 1.5 MCG/KG/ MIN TO ACHIEVE TRAIN OF 4 = 1/4, WAS 4/4 FOR FIRST HALF OF SHIFT.
--- NOTE | 2021-06-14 18:18 | NUR ---
SUMMARY PT INTUBATED AND SEDATED WITH PROPOFOL AND PRECEDEX. PARALYZED WITH NIMBEX. PT DOES NOT HAVE A BIS MONITOR ON DUE TO ONE NOT BEING AVAILABLE. PT HAS NOT SHOWN SIGNS OF BEING UNDER SEDATED TODAY. WHEN NIMBEX WAS AT 1.5 MCG TOF WAS 0/4. WHEN DECREASED TO 1MCG TOF 4/4. PT TOLERATING THE VENT WELL. WAS PRONED UNTIL 1715 TODAY AND DID WELL. TUBE FEED WAS ON HOLD TODAY DUE TO HIGH RESIDUALS. DISCUSSED WITH DIETARY AND DR. MOORE. DR. MOORE SAID TO RESTART TUBE FEED AND QUIT CHECKING RESIDUALS UNLESS PT SHOWS SIGNS OF INTOLERANCE SUCH VOMITTING. NO OTHER CHANGES THIS SHIFT. UPDATED VIA PHONE 2X TODAY.
--- NOTE | 2021-06-15 00:03 | NUR ---
ASSUMED CARE OF PATIENT AT 1900, HE IS ON THE VENTILATOR AT RATE OF 16, TV 500 PEEP 12, AND FIO2 OF 70%, HE IS MAINTAINING SATS >85%. HE IS ON PRECEDEX @ 0.5 MCG/KG/MIN, NIMBEX @ 1 MCG/KG/MIN, PROPOFOL @ 45 MCG/KG/MIN, AND NS @ 10ML/HR. HIS TUBE FEEDING WAS RESUMED AT 30CC/HR WITH 3O ML/4H FLUSHES. CRANE TO GRAVITY DRAINAGE WITH GREEN/YELLOW RETURN. PT'S LUNGS CLEAR, ABD SEMI SOFT, BOWEL SOUNDS QUIET. HANDS/FEET 2+EDEMATOUS WITH BILAT UPPER AND LOWER EXT 1+. PT HAS BEEN ROTATED Q2 W/ CEILING LIFT, TOLERATED WELL. JUST BEFORE MIDNOC PT HAD DROP IN SATURATION TO HOVERING AT 83%, PT SUCTIONED WITH SCANT RETURN, FIO2 INCREASED TO 80% AFTER 15MINUTES OF NO CHANGE. PT ALSO MEDICATED WITH FENTANYL 50MCG. SATS NOW 86%. WILL PRONE PATIENT AROUND [address] ALEXANDER
--- NOTE | 2021-06-15 01:30 | NUR ---
PT TURNED TO PRONE POSITION, R/T, 2-RNS, PCT ASSISTING. PT TOLERATED WELL, TOF HAS BEEN 4/4 ON 10 AT EACH CHECK.
[2021-06-15 04:45] LABS: BASOPHILS ABSOLUTE AUTO 0.06 K/mm3 (0.00-0.23); BASOPHILS PERCENT AUTO 0 % (0-2); EOSINOPHILS ABSOLUTE AUTO 0.08 K/mm3 (0.00-0.68); EOSINOPHILS PERCENT AUTO 1 % (0-6); Hemoglobin 13.1 g/dL (13.5-17.5); IMMATURE GRAN ABSOLUTE AUTO 0.99 K/mm3 (0.00-0.10); IMMATURE GRAN PERCENT AUTO 6 % (0-1); LYMPHOCYTES ABSOLUTE AUTO 0.51 K/mm3 (0.84-5.20); LYMPHOCYTES PERCENT AUTO 3 % (21-46); MONOCYTES ABSOLUTE AUTO 0.91 K/mm3 (0.16-1.47); MONOCYTES PERCENT AUTO 6 % (4-13); Mean Corpuscular HGB 30.8 pg (26.0-34.0); Mean Corpuscular Volume 97 fL (80-100); NEUTROPHILS ABSOLUTE AUTO 14.03 K/mm3 (1.96-9.15); NEUTROPHILS PERCENT AUTO 85 % (41-73); Platelet Count 438 K/mm3 (150-400); RDW Coefficient Variation 13.6 % (11.7-14.2); RDW Standard Deviation 48.1 fL (35.1-46.3); Red Blood Cell Count 4.25 M/mm3 (4.30-5.90); White Blood Cell Count 16.58 K/mm3 (4.00-11.30)
[2021-06-15 05:25] LABS: Anion Gap 3 mmol/L (6-16); Blood Urea Nitrogen 33 mg/dL (8-24); Bun/Creatinine Ratio 39.3 (12.0-20.0); CO2, Blood 32 mmol/L (21-32); Calcium, Blood 8.4 mg/dL (8.5-10.1); Chloride, Blood 110 mmol/L (98-108); Creatinine, Blood 0.84 mg/dL (0.60-1.20); Glomerular Filtration Rate >60 (60-); Glucose, Blood 272 mg/dL (70-99); Potassium, Blood 5.4 mmol/L (3.5-5.5); Sodium, Blood 145 mmol/L (136-145)
--- NOTE | 2021-06-15 05:47 | NUR ---
PT IS HAVING INCREASE IN HIS BLOOD PRESSURE, HE HAS BEEN MEDICATED WITH HYDRALAZINE, FENTANYL, AND INCREASE IN PROPOFOL TO 50MCG/KG/MIN. HAVE BEEN REPOSITIONING Q2H, HE WAS INCREASED TO 80% FIO2 AROUND MIDNIGHT. PRIYA, ABDOMEN SOFT, CRANE TO GRAVITY DRAINAGE WITH >1000ML OUT. NO BM.
--- NOTE | 2021-06-15 19:31 | NUR ---
SUMMARY PT INTUBATED AND SEDATED WITH PROPOFOL AND PRECEDEX, PARALYZED WITH NIMBEX. TOF 0/4 TODAY. ATIVAN GIVEN SEVERAL TIMES WHEN BP AND HR WOULD INCREASE. AFTER ATIVAN BP AND HR WOULD IMPROVE. NO BIS MONITORING DUE TO NO UNITS AVAILABLE. PT WAS ON 80% FIO2 ALL DAY WHILE PRONED. WHEN UNPRONED THIS EVENING AROUND 1800 PT DESATS TO 81-83%. INCREASED FIO2 TO 100% AND INCREASED PEEP TO [address] MOORE. TOLERATED TUBE FEED. NO OTHER CHANGES THIS SHIFT.
--- NOTE | 2021-06-15 21:02 | NUR ---
ASSUMED CARE OF PATIENT AT 1900 FROM TIANA FIERRO. PT HAD JUST RETURNED TO [place] POSITION. PT ON THE VENTILATOR SETTINGS 16/500/12/100%. PROPOFOL @ 50 MCG/KG/MIN, PRECEDEX @ 0.7MCG/KG/HR, NIMBEX @ 1 MCG/KG/MIN. VHP @ 30ML/HR. ABD ROUND SOFT, HYPO BOWEL SOUNDS, CRANE TO GRAVITY DRAINAGE WITH YELLOW RETURN. HANDS/FEET EDEMATOUS. PUPILS ARE PINPOINT AND SLUGGISH TO REACT. EYELIDS SWOLLEN, NO COUGH OR GAG.
--- NOTE | 2021-06-16 02:08 | NUR ---
PT RETURNED TO PRONE POSITION, RESPIRATORY THERAPY-ANABEL, PRISCILLA HORTON AND MYSELF. PT TURNED TO PRONE WELL, CEILING LIFT USED TO POSITION PILLOWS UNDER CHEST AND PELVIS REPORTED PT WITH HISTORY OF BACK PAIN. PT TOLERATED WELL.
--- NOTE | 2021-06-16 02:09 | NUR ---
ALSO ToF WAS STILL SHOWING 4/4 ON 10, SO NIMBEX INCREASED TO 1.5.
[2021-06-16 04:21] LABS: BASOPHILS ABSOLUTE AUTO 0.05 K/mm3 (0.00-0.23); BASOPHILS PERCENT AUTO 0 % (0-2); EOSINOPHILS ABSOLUTE AUTO 0.15 K/mm3 (0.00-0.68); EOSINOPHILS PERCENT AUTO 1 % (0-6); Hematocrit 38.1 % (37.0-53.0); Hemoglobin 12.1 g/dL (13.5-17.5); IMMATURE GRAN ABSOLUTE AUTO 0.68 K/mm3 (0.00-0.10); IMMATURE GRAN PERCENT AUTO 5 % (0-1); LYMPHOCYTES ABSOLUTE AUTO 0.56 K/mm3 (0.84-5.20); LYMPHOCYTES PERCENT AUTO 4 % (21-46); MONOCYTES PERCENT AUTO 7 % (4-13); Mean Corpuscular HGB 30.8 pg (26.0-34.0); Mean Corpuscular HGB Conc 31.8 g/dL (31.5-36.5); Mean Corpuscular Volume 97 fL (80-100); Mean Platelet Volume 11.3 fL (9.1-12.4); NEUTROPHILS ABSOLUTE AUTO 11.44 K/mm3 (1.96-9.15); NEUTROPHILS PERCENT AUTO 83 % (41-73); Platelet Count 373 K/mm3 (150-400); RDW Coefficient Variation 13.8 % (11.7-14.2); RDW Standard Deviation 49.7 fL (35.1-46.3); Red Blood Cell Count 3.93 M/mm3 (4.30-5.90); White Blood Cell Count 13.78 K/mm3 (4.00-11.30)
[2021-06-16 04:36] LABS: Anion Gap 3 mmol/L (6-16); Blood Urea Nitrogen 38 mg/dL (8-24); Bun/Creatinine Ratio 49.4 (12.0-20.0); CO2, Blood 31 mmol/L (21-32); Calcium, Blood 7.8 mg/dL (8.5-10.1); Chloride, Blood 113 mmol/L (98-108); Creatinine, Blood 0.77 mg/dL (0.60-1.20); Glomerular Filtration Rate >60 (60-); Glucose, Blood 251 mg/dL (70-99); Magnesium, Blood 3.1 mg/dL (1.6-2.4); Potassium, Blood 5.4 mmol/L (3.5-5.5); Sodium, Blood 147 mmol/L (136-145)
--- NOTE | 2021-06-16 06:44 | NUR ---
SUMMARY: KELSEY HAS BEEN UNREMARKABLE T/O THE SHIFT, HE WAS PRONED AROUND 0200, HAS BEEN DECREASED TO 90% FIO2. HE CONTINUES ON NIMBEX @ 1.5, PRECEDEX @ 0.7, PROPOFOL @ 50, NS TKO WITH CA+ RIDER INFUSING. ABDOMEN WITH BOWEL SOUNDS PRIOR TO PRONING, STILL NO BM, MOM GIVEN LAST EVENING. CRANE CONTINUES TO GRAVITY DRAINAGE WITH YELLOW/GREEN RETURN. ToF NOW ABSENT, PT SEEMS TO BE TOLERATING VENT BETTER. WILL REPORT OFF TO NEXT SHIFT WHEN ABLE.
--- NOTE | 2021-06-16 07:14 | NUR ---
Received report from Juani MONTIEL. Patient is intubated and sedated with paralytic as well. He has 8.0 ET and 27 at lips with vent settings AC 16, Tv 500, FiO2 90%, PEEP 12 and sats >90%. He is proned until 1800. He has 20ga IV RENO and is infusing NS TKO. He has PowerGlide to IVORY and is infusing Propofol at 50 mcg/kg/min. He also has 18 ga PowerGlide infusing Precedex at 0.7 mcg/kg/hr and Nimbex at mcg/kg/min.. He has 16Fr temp cabrera draining to gravity and temp of 98.2. TO4 0/4. He has OG in place infusing Vital High Protien at 30 ml/hr and 30 ml water flush Q4. Patient is hypertensive and will address with am med per DEC.
--- NOTE | 2021-06-16 10:15 | NUR ---
No significant chnages with patient, he remains intubated ,sedated, and paralyzed. TO4 0/4. Meds tolerated through OG and IV. No changes to vent or gtt settings.
--- NOTE | 2021-06-16 13:00 | NUR ---
Patient remains proned. Continued ET suction with moderate thick secretions. Have medicated with Labetalol with minimal sucess for brief periods. No vent setting changes and continued plan to unprone at 1800. Vent settings 16/500/90%/12 with sats low 90%'s. TO4 0/4 and propofol remains 50 mcg/kg/min
--- NOTE | 2021-06-16 16:19 | NUR ---
1600 No significant changes with patient. Spouse by and sat with him for a while. No changes to gtt's or vent settings
--- NOTE | 2021-06-16 18:30 | NUR ---
Patient unproned and was difficult to get sats up. Increased PEEP to 15 and FiO2 100%. Had to bag him for about 5 minutes to get sats up. final vent settings are 16/500/100/14 and sats 88-90%. Propofol remains at 50 mcg/kg min, Precedex at 0.7 mcg/kg/hr. Murphy had 1625 ml.
--- NOTE | 2021-06-16 21:00 | NUR ---
ASSUMED CARE. BEDSIDE REPORT RECIEVED. PT CONTINUES ON VENTILATOR, SETTINGS: AC 16, TV 500, PEEP 14, FI02 100%. OG TUBE IN PLACE, VITAL HIGH PROTEIN RUNNING AT 30 ML/HR WITH 30 ML FLUSH. PT ON PROPOFOL AT 50 MCG/KG/MIN, PRECEDEX AT 0.7 MCG/KG/HR, NS 10 ML/HR. NIMBEX TURNED TO STANDBY WHILE IN ROOM TO ASSESS SEDATION LEVEL. PT HAS IV ACCESS TO R/FOREARM AND POWERGLIDES IN RENO AND IVORY. TEMP CRANE IN PLACE, DRAINING CLEAR, YELLOW URINE. NO ACUTE NEEDS NOTED, WILL CONTINUE TO MONITOR.
[2021-06-17 05:36] LABS: BASOPHILS ABSOLUTE AUTO 0.04 K/mm3 (0.00-0.23); BASOPHILS PERCENT AUTO 0 % (0-2); EOSINOPHILS ABSOLUTE AUTO 0.16 K/mm3 (0.00-0.68); EOSINOPHILS PERCENT AUTO 1 % (0-6); Hematocrit 36.3 % (37.0-53.0); Hemoglobin 11.6 g/dL (13.5-17.5); IMMATURE GRAN ABSOLUTE AUTO 0.66 K/mm3 (0.00-0.10); IMMATURE GRAN PERCENT AUTO 5 % (0-1); LYMPHOCYTES ABSOLUTE AUTO 0.68 K/mm3 (0.84-5.20); LYMPHOCYTES PERCENT AUTO 5 % (21-46); MONOCYTES ABSOLUTE AUTO 0.96 K/mm3 (0.16-1.47); MONOCYTES PERCENT AUTO 7 % (4-13); Mean Corpuscular HGB 31.5 pg (26.0-34.0); Mean Corpuscular Volume 99 fL (80-100); Mean Platelet Volume 11.3 fL (9.1-12.4); NEUTROPHILS ABSOLUTE AUTO 11.12 K/mm3 (1.96-9.15); NEUTROPHILS PERCENT AUTO 82 % (41-73); Platelet Count 307 K/mm3 (150-400); RDW Coefficient Variation 14.1 % (11.7-14.2); RDW Standard Deviation 51.2 fL (35.1-46.3); Red Blood Cell Count 3.68 M/mm3 (4.30-5.90); White Blood Cell Count 13.62 K/mm3 (4.00-11.30)
[2021-06-17 05:55] LABS: Anion Gap 2 mmol/L (6-16); Blood Urea Nitrogen 37 mg/dL (8-24); Bun/Creatinine Ratio 46.7 (12.0-20.0); CO2, Blood 34 mmol/L (21-32); Calcium, Blood 8.2 mg/dL (8.5-10.1); Chloride, Blood 111 mmol/L (98-108); Creatinine, Blood 0.79 mg/dL (0.60-1.20); Glomerular Filtration Rate >60 (60-); Glucose, Blood 244 mg/dL (70-99); Potassium, Blood 4.9 mmol/L (3.5-5.5); Sodium, Blood 147 mmol/L (136-145)
--- NOTE | 2021-06-17 06:34 | NUR ---
SHIFT SUMMARY. PT PRONED AT 0200, CONTINUES ON VENTILATOR, SETTINGS: AC 16, TV 500, PEEP 13, FI02 90%. OG TUBE IN PLACE, VITAL HIGH PROTEIN RUNNING AT 30 ML/HR WITH 30 ML FLUSH/4 HOURS. IV PUMP SETTINGS ARE FOLLOWS: NIMBEX 1.5 MCG/MIN, PROPOFOL 50 MCG/KG/MIN, PRECEDEX 0.7 MCG/KG/HR, NS 10 ML/HR. NIMBEX WAS PUT ON STANDBY FROM BEGINNING OF SHIFT TO JUST PRIOR TO PRONING, PATIENT TOLERATED WELL. CRANE CATHETER IN PLACE, DRAINING CLEAR YELLOW URINE. SEE SHIFT ASSESSMENT FOR FURTHER DETAILS. WILL CONTINUE TO MONITOR AND REPORT OFF TO ONCOMING RN.
--- NOTE | 2021-06-17 09:00 | NUR ---
Care Assumed 0700 Pt intubated, sedated, and on paralytic. Propofol GTT 50 MCG/KG/MIN, Precedex 0.7 mcg/kg/hr, and Nimbex 1.5 mcg/kg/min. Vent settings: AC 16/500/13/90%. TOF: 2/4. OGT with VHP @ goal. Pt is currently proned. Temp cabrera in place. VSS. NSR. See full assessment.
--- NOTE | 2021-06-17 12:52 | NUR ---
Update- Nimbex placed on SB. Dr. Moran aware. Critical sodium results recieved of 118, Dr. Moran aware of this as well. No other changes in patient.
--- NOTE | 2021-06-17 19:34 | NUR ---
Shift summary Pt made supine at 1730. Vent settings changed to AC VC 16/500/13/60%, SPO2 > 90%. Pts at bedside updated on care being provided. Dr. Moran in to see as well. Nimbex restarted at 1 mcg/kg/min due to pt not tolerating vent per dr. Moran at 1641. Propofol 55 mcg/kg/min. Pt hypertensive at times and treated per emar. Temp cabrera remains in place. VSS. NSR.
--- NOTE | 2021-06-17 23:37 | NUR ---
ASSUMED CARE OF PATIENT @1900. PATIENT IS UNAROUSABLE, NIMBEX SET TO STANDBY, TOF 0/4, REASSESSED WITH A TOF 4/4 WITH GENERALIZED MOVEMENT TO HEAD, NO EXTREMITY MOVEMENT. PATIENT SEDATED AND INTUBATED, VENT SETTINGS A/C VC 16, VT 500, PEEP 13, FI02 95%. PROPOFOL @55MCG/KG/MIN, PRECEDEX @0.7MCG/KG/HR. BUE POWERGLIDES. TUBE FEED CONTINUOUS 30MLS/HR VHP. CRANE DRAINING CLEAR YELLOW URINE. SEE SHIFT SUMMARIES FOR DETAILS.
[2021-06-18 05:55] LABS: BASOPHILS ABSOLUTE AUTO 0.03 K/mm3 (0.00-0.23); BASOPHILS PERCENT AUTO 0 % (0-2); EOSINOPHILS ABSOLUTE AUTO 0.15 K/mm3 (0.00-0.68); EOSINOPHILS PERCENT AUTO 1 % (0-6); Hematocrit 38.6 % (37.0-53.0); IMMATURE GRAN ABSOLUTE AUTO 0.56 K/mm3 (0.00-0.10); IMMATURE GRAN PERCENT AUTO 4 % (0-1); LYMPHOCYTES PERCENT AUTO 6 % (21-46); MONOCYTES ABSOLUTE AUTO 0.88 K/mm3 (0.16-1.47); MONOCYTES PERCENT AUTO 7 % (4-13); Mean Corpuscular HGB 30.5 pg (26.0-34.0); Mean Corpuscular HGB Conc 31.1 g/dL (31.5-36.5); Mean Corpuscular Volume 98 fL (80-100); Mean Platelet Volume 11.6 fL (9.1-12.4); NEUTROPHILS ABSOLUTE AUTO 10.89 K/mm3 (1.96-9.15); NEUTROPHILS PERCENT AUTO 82 % (41-73); Platelet Count 291 K/mm3 (150-400); RDW Coefficient Variation 14.1 % (11.7-14.2); RDW Standard Deviation 51.1 fL (35.1-46.3); Red Blood Cell Count 3.94 M/mm3 (4.30-5.90); White Blood Cell Count 13.31 K/mm3 (4.00-11.30)
[2021-06-18 06:09] LABS: Anion Gap 2 mmol/L (6-16); Blood Urea Nitrogen 36 mg/dL (8-24); Bun/Creatinine Ratio 50.2 (12.0-20.0); CO2, Blood 36 mmol/L (21-32); Calcium, Blood 8.7 mg/dL (8.5-10.1); Chloride, Blood 110 mmol/L (98-108); Creatinine, Blood 0.72 mg/dL (0.60-1.20); Glomerular Filtration Rate >60 (60-); Glucose, Blood 216 mg/dL (70-99); Potassium, Blood 4.4 mmol/L (3.5-5.5); Sodium, Blood 148 mmol/L (136-145)
--- NOTE | 2021-06-18 06:45 | NUR ---
SHIFT SUMMARY NO SIGNIFICANT CHANGES NOTED THIS SHIFT. ATTEMPTED TO WEAN OFF NIMBEX WHICH WAS UNSUCCESSFUL, D/T FREQUENT HIGH PEAK PRESSURES. NIMBEX 1.5 MCG/KG/MIN, WITH TOF 2/4. REMIANS SEDATED WITH PROPOFOL 55MCG/KG/MIN, PRECEDEX 0.7 MCG/KG/HR. PATIENT REMAINS NON RESPONSIVE TO NOXIOUS STIMULI, ATTEMPTED TO WEAN SEDATION MEDS, UNSUCCESSFUL D/T VENT INTOLERANCE. VENT REMAINS AC VC 16, VT 500, PEEP, 13, FI02 90%. PATIENT SYNC WITH VENT WITH RR 16. VHP REMAINS AT GOAL OF 30 MLS/HR. CRANE DRAINING CLEAR YELLOW TO GRAVITY. PRONE @0200. WILL CONTINUE TO MONITOR TILL REPORT HANDED OFF TO DAY RN.
--- NOTE | 2021-06-18 11:36 | NUR ---
REASSESSMENT PT REMAINS INTUBATED, SEDATED AND PARALYZED. HE HAS BEEN PRONE POSITIONED THIS MORNING AND FIO2 WAS ABLE TO BE TITRATED DOWN TO 75%. PLAN IS TO UNPRONE PT AT 1200. PT'S LUNGS ARE COARSE IN THE BASES. ST WITH RATE IN THE LOW 100S. TOF 2/4. TOLERATING TUBE FEED. GOOD URINE OUTPUT, CL WITH SLIGHT GREEN TINT. SPOKE WITH PT'S THIS MORNING AND PROVIDED UPDATE. CONTINUING TO MONITOR.
--- NOTE | 2021-06-18 18:04 | NUR ---
SHIFT SUMMARY PT REMAINS INTUBATED, SEDATED AND PARALYZED. FIO2 WAS ABLE TO BE TITRATED DOWN TO 70% TODAY. LUNGS ARE SOMETIMES CLEAR, OTHER TIMES COARSE IN THE BASES. SR IN THE 70S THIS EVENING. HYPERTENSIVE THIS EVENING WITH SBP 180S, PRN LABETALOL GIVEN AND SBP DOWN TO 150. NIMBEX TITRATED DOWN THIS AFTERNOON TOF WAS 0/4, BUT WITH MINIMAL TITRATION TOF BECAME 4/4, SO TITRATED IT BACK UP, SEE FLOWSHEET. CRANE WITH CL URINE. ABD WIT HYPOACTIVE BT. PT HAS NO T HAD BM CHARTED IN OVER A WEEK SO MILK OF MAG GIVEN THIS EVENING PER PRN ORDERS. CONTINUING TO MONITOR.
[2021-06-19 03:29] LABS: BASOPHILS ABSOLUTE AUTO 0.03 K/mm3 (0.00-0.23); BASOPHILS PERCENT AUTO 0 % (0-2); EOSINOPHILS PERCENT AUTO 1 % (0-6); Hematocrit 37.9 % (37.0-53.0); Hemoglobin 11.9 g/dL (13.5-17.5); IMMATURE GRAN ABSOLUTE AUTO 0.46 K/mm3 (0.00-0.10); IMMATURE GRAN PERCENT AUTO 4 % (0-1); LYMPHOCYTES ABSOLUTE AUTO 0.81 K/mm3 (0.84-5.20); LYMPHOCYTES PERCENT AUTO 8 % (21-46); MONOCYTES ABSOLUTE AUTO 0.59 K/mm3 (0.16-1.47); MONOCYTES PERCENT AUTO 6 % (4-13); Mean Corpuscular HGB 30.8 pg (26.0-34.0); Mean Corpuscular HGB Conc 31.4 g/dL (31.5-36.5); Mean Corpuscular Volume 98 fL (80-100); Mean Platelet Volume 11.4 fL (9.1-12.4); NEUTROPHILS ABSOLUTE AUTO 8.73 K/mm3 (1.96-9.15); NEUTROPHILS PERCENT AUTO 81 % (41-73); Platelet Count 266 K/mm3 (150-400); RDW Coefficient Variation 14.2 % (11.7-14.2); RDW Standard Deviation 50.4 fL (35.1-46.3); Red Blood Cell Count 3.86 M/mm3 (4.30-5.90); White Blood Cell Count 10.72 K/mm3 (4.00-11.30)
[2021-06-19 03:46] LABS: Anion Gap 0 mmol/L (6-16); Blood Urea Nitrogen 35 mg/dL (8-24); CO2, Blood 39 mmol/L (21-32); Calcium, Blood 8.7 mg/dL (8.5-10.1); Chloride, Blood 107 mmol/L (98-108); Creatinine, Blood 0.64 mg/dL (0.60-1.20); Glomerular Filtration Rate >60 (60-); Glucose, Blood 231 mg/dL (70-99); Potassium, Blood 4.4 mmol/L (3.5-5.5); Sodium, Blood 146 mmol/L (136-145)
--- NOTE | 2021-06-19 06:32 | NUR ---
SHIFT SUMMARY NO ACUTE CHANGES OVERNIGHT. HAS TOLERATED PRONING/REPOSITIONING WELL THRU NIGHT. RESIDUALS WERE MINIMAL. ASSESSMENT IS CHARTED. VSS. WILL CONTINUE TO MONITOR.
--- NOTE | 2021-06-19 08:30 | NUR ---
ASSESSMENT- PT SEDATED WITH PROPOFOL AT 55 MCG/KG/MIN AND PARALYZED WITH NIMBEX AT 2 MCG/KG/MIN. TOF 0/4, DECREAESED NIMBEX TO 1 MCG/KG/MIN. ORALLY INTUBATED, TUBE SECURE, SEE SETTINGS. APICAL REGULAR, BP STABLE. TUBE FEEDING VIA OGT INTACT, RESIDUAL 175 CC REPLACED. ABDOMEN LARGE WITH FEW BOWEL SOUNDS. URINE OUTPUT VIA CRANE. PRONE POSITION, REPOSITIONED HEAD AND TILTED TO SIDE WITH MULTIPLE STAFF FOR SAFETY, TOLERATED WELL. SCABS UPPER LIP, RED ABRASION RIGHT CHEEK. POWER GLIDES BILATERAL ARMS DI, PIV RIGHT ARM DI WITH NS TKO. ENHANCED PRECAUTIONS FOR COVID PNEUMONIA
--- NOTE | 2021-06-19 09:59 | NUR ---
PT MOVING SLIGHTLY, PROPOFOL INCREASED BACK TO 55 MCG/KG/MIN FOR SEDATION. SATURATIONS DECREASED NEEDED TO INCREASE FI02 TO 70% AND PEEP 15. DR. MCDONALD HERE-UPDATED
--- NOTE | 2021-06-19 10:15 | NUR ---
PT ARMS REPOSITIONED, PRONE POSITION. TOLERATING VENT. BIS LOW 60'S
--- NOTE | 2021-06-19 12:15 | NUR ---
TURNED SUPINE WITH MULTIPLE STAFF, TOLERATED FAIR. ETT RESECURED. BLISTER ON CHEEK-NOW ABRASION-COVERED WITH DRESSING. NIMBEX OFF. RESTRAINTS ON-EXTUBATION RISK. IS ABLE TO MOVE HEAD, SHOULDERS. NO RESPONSE TO COMMANDS.
--- NOTE | 2021-06-19 14:09 | NUR ---
REPOSITIONED NOW AFTER RX WITH FENTANYL. TOLERATING VENT SETTINGS. VSS. SATURATIONS IMPROVED TO 94%
--- NOTE | 2021-06-19 16:00 | NUR ---
HAS BEEN TOLERATING VENT WITH SEDATION PROPOFOL AT 55 MCG/KG/MIN, PRECEDEX AT 0.7 DR. MCDONALD HERE-UPDATED. NIMBEX REMAINS OFF. NSR, BP STABLE.
--- NOTE | 2021-06-19 19:12 | NUR ---
VSS. CONTINUE TO MONITOR. REPOSITIONED, TOLERATING VENT WITHOUT PROBLEMS.
[2021-06-20 04:30] LABS: BASOPHILS ABSOLUTE AUTO 0.03 K/mm3 (0.00-0.23); BASOPHILS PERCENT AUTO 0 % (0-2); EOSINOPHILS ABSOLUTE AUTO 0.11 K/mm3 (0.00-0.68); EOSINOPHILS PERCENT AUTO 1 % (0-6); Hematocrit 38.2 % (37.0-53.0); Hemoglobin 11.9 g/dL (13.5-17.5); IMMATURE GRAN ABSOLUTE AUTO 0.43 K/mm3 (0.00-0.10); IMMATURE GRAN PERCENT AUTO 4 % (0-1); LYMPHOCYTES PERCENT AUTO 7 % (21-46); MONOCYTES ABSOLUTE AUTO 0.74 K/mm3 (0.16-1.47); MONOCYTES PERCENT AUTO 7 % (4-13); Mean Corpuscular HGB 30.7 pg (26.0-34.0); Mean Corpuscular HGB Conc 31.2 g/dL (31.5-36.5); Mean Corpuscular Volume 99 fL (80-100); Mean Platelet Volume 11.8 fL (9.1-12.4); NEUTROPHILS ABSOLUTE AUTO 8.56 K/mm3 (1.96-9.15); NEUTROPHILS PERCENT AUTO 81 % (41-73); Platelet Count 243 K/mm3 (150-400); RDW Coefficient Variation 14.2 % (11.7-14.2); RDW Standard Deviation 51.4 fL (35.1-46.3); Red Blood Cell Count 3.88 M/mm3 (4.30-5.90); White Blood Cell Count 10.57 K/mm3 (4.00-11.30)
[2021-06-20 04:53] LABS: Anion Gap 4 mmol/L (6-16); Blood Urea Nitrogen 36 mg/dL (8-24); Bun/Creatinine Ratio 51.7 (12.0-20.0); CO2, Blood 36 mmol/L (21-32); Calcium, Blood 9.2 mg/dL (8.5-10.1); Chloride, Blood 105 mmol/L (98-108); Glomerular Filtration Rate >60 (60-); Glucose, Blood 216 mg/dL (70-99); Magnesium, Blood 2.2 mg/dL (1.6-2.4); Phosphorus, Blood 3.6 mg/dL (2.5-4.9); Potassium, Blood 4.3 mmol/L (3.5-5.5); Sodium, Blood 145 mmol/L (136-145)
--- NOTE | 2021-06-20 06:23 | NUR ---
SHIFT SUMMARY NO ACUTE CHANGES OVERNIGHT. TOLERATING PRONING WELL, UNFORTUNATELY HAVE NOT BEEN ABLE TO DECREASE FIO2. SPOKE AT LENGTH EARLIER IN NIGHT WITH FAMILY REGARDING EXPLORATORY TREATMENTS IVERMECTIN AND MONOCLONAL ANTIBODIES, ALL QUESTIONS ANSWERED TO FAMILY, WILL ATTEMPT TO FACILITATE CALL LATER REGARDING IMMUNE RESPONSE CONCERNS. ASSESSENT IS CHARTED. VSS. WILL CONTINUE TO MONITOR.
--- NOTE | 2021-06-20 10:59 | NUR ---
Power of Care: Care assumed at 0700hr. Currently in prone position. Patient intubated and sedated with propofol gtt at 45mcg/kg/min and precedex gtt at 0.7mcg/kg/hr, BIS monitor showing 40-45. Nimbex gtt at 2mcg/kg/min, TOF 0/4, will decrease gtt, but plan to consult with Dr. Moran about discontinuing gtt. Vent to AC 16/500/15/65%, spO2-92-94%, tolerating vent without difficulty. Bilateral power-glides to upper arms, patent and intact. Temp-probe cabrera patent and intact, draining clear yellow urine. TF per OG at goal, residual 60ml, tolerating without difficulty. Systolic BP's 190's-200's this morning, received new order per Dr. Moran for PT lopressor BID. Plan to turn to supine position at 1200hr. Will continue to monitor.
[2021-06-21 04:23] LABS: BASOPHILS ABSOLUTE AUTO 0.06 K/mm3 (0.00-0.23); BASOPHILS PERCENT AUTO 1 % (0-2); EOSINOPHILS ABSOLUTE AUTO 0.11 K/mm3 (0.00-0.68); EOSINOPHILS PERCENT AUTO 1 % (0-6); Hematocrit 39.8 % (37.0-53.0); Hemoglobin 12.3 g/dL (13.5-17.5); IMMATURE GRAN ABSOLUTE AUTO 0.44 K/mm3 (0.00-0.10); IMMATURE GRAN PERCENT AUTO 4 % (0-1); LYMPHOCYTES PERCENT AUTO 9 % (21-46); MONOCYTES ABSOLUTE AUTO 0.72 K/mm3 (0.16-1.47); MONOCYTES PERCENT AUTO 7 % (4-13); Mean Corpuscular HGB 30.6 pg (26.0-34.0); Mean Corpuscular HGB Conc 30.9 g/dL (31.5-36.5); Mean Corpuscular Volume 99 fL (80-100); Mean Platelet Volume 12.4 fL (9.1-12.4); NEUTROPHILS ABSOLUTE AUTO 8.31 K/mm3 (1.96-9.15); NEUTROPHILS PERCENT AUTO 79 % (41-73); Platelet Count 201 K/mm3 (150-400); RDW Coefficient Variation 14.2 % (11.7-14.2); RDW Standard Deviation 51.8 fL (35.1-46.3); Red Blood Cell Count 4.02 M/mm3 (4.30-5.90); White Blood Cell Count 10.54 K/mm3 (4.00-11.30)
[2021-06-21 04:41] LABS: Anion Gap 2 mmol/L (6-16); Blood Urea Nitrogen 36 mg/dL (8-24); Bun/Creatinine Ratio 44.6 (12.0-20.0); CO2, Blood 39 mmol/L (21-32); Chloride, Blood 104 mmol/L (98-108); Creatinine, Blood 0.81 mg/dL (0.60-1.20); Glomerular Filtration Rate >60 (60-); Glucose, Blood 188 mg/dL (70-99); Potassium, Blood 3.8 mmol/L (3.5-5.5); Sodium, Blood 145 mmol/L (136-145)
[2021-06-21 05:37] LABS: PCO2 Arterial 63.9 mmHg (35-45); PO2 Arterial 67.1 mmHg (80-100); pH Blood Arterial 7.42 (7.35-7.45)
--- NOTE | 2021-06-21 06:15 | NUR ---
END OF SHIFT SUMMARY: PATIENT REMAINS INTUBATED/SEDATED/PARALYZED AT THIS TIME. PATIENT HAS TOLERATED CURRENT VENT SETTINGS OVERNIGHT WITH NO ADJUSTMENTS. 100% NECESSARY AFTER PRONINHG INITIALLY BUT THEN HE IS OKAY. MINIMAL SECRETIONS FROM ETT. PATINET HAS BEEN IN NSR AND BP HAS SLOWLY INREASED THROUGHOUT THE COURSE OF THE SHIFT. SBP>190. LABETALOL GIVEN X1 AND HYDRALAZINE GIVEN X1 AND SEDATION ADJUSTED, GOOD URINE OUTPUT. PRONED AT 2100 INITIALLY AND WILL BE DUE TO SUPIBE AT 1300 TODAY.
--- NOTE | 2021-06-21 12:34 | NUR ---
RETURNED PT'S 'S PHONE CALL (TRES), NO ANSWER, LEFT VOICEMAIL WITH QUICK UPDATE.
--- NOTE | 2021-06-21 17:57 | NUR ---
SHIFT SUMMARY VENT SETTINGS AC 16/500/12/40%. PROPOFOL @ 55 MCG/KG/MIN WITH BIS 30-40'S. NIMBEX @ 2 MCG/KG/MIN, TOF 3/4. 2600 ML URINARY OUTPUT. PT PRONED UNTIL 1200, PLAN TO STAY SUPINE OVERNIGHT. WHEN PLACED SUPINE IT WAS NOTICED THAT PT DEVELOPED SMALL PRESSURE ULCER TO NOSE D/T ETT DOBSON AND PRONING. WILL REPORT TO ONCOMING NURSE.
--- NOTE | 2021-06-22 00:20 | NUR ---
MIDNIGHT ASSESSMENT: PT CONTINUES ON VENTILATOR 16/500/12/50%. PT ON NIMBEX 2 MCG/KG/MIN, PROPOFOL 60 MCG/KG/MIN, PRECEDEX 0.7 MCG/KG/HR. PT BEING TURNED Q 2 HR, TOLERATING WELL. LUNGS COARSE WITH EXP.RUB IN THE RLL. ABD SOFT, CRANE TO GRAVITY DRAINAGE WITH GOOD OUTPUT.
[2021-06-22 04:25] LABS: BASOPHILS ABSOLUTE AUTO 0.03 K/mm3 (0.00-0.23); BASOPHILS PERCENT AUTO 0 % (0-2); EOSINOPHILS ABSOLUTE AUTO 0.09 K/mm3 (0.00-0.68); EOSINOPHILS PERCENT AUTO 1 % (0-6); Hematocrit 35.9 % (37.0-53.0); Hemoglobin 11.1 g/dL (13.5-17.5); IMMATURE GRAN ABSOLUTE AUTO 0.22 K/mm3 (0.00-0.10); IMMATURE GRAN PERCENT AUTO 2 % (0-1); LYMPHOCYTES PERCENT AUTO 9 % (21-46); MONOCYTES ABSOLUTE AUTO 0.64 K/mm3 (0.16-1.47); MONOCYTES PERCENT AUTO 7 % (4-13); Mean Corpuscular HGB 30.2 pg (26.0-34.0); Mean Corpuscular HGB Conc 30.9 g/dL (31.5-36.5); Mean Corpuscular Volume 98 fL (80-100); Mean Platelet Volume 11.7 fL (9.1-12.4); NEUTROPHILS ABSOLUTE AUTO 7.66 K/mm3 (1.96-9.15); NEUTROPHILS PERCENT AUTO 80 % (41-73); Platelet Count 181 K/mm3 (150-400); RDW Coefficient Variation 14.1 % (11.7-14.2); RDW Standard Deviation 49.9 fL (35.1-46.3); Red Blood Cell Count 3.67 M/mm3 (4.30-5.90); White Blood Cell Count 9.54 K/mm3 (4.00-11.30)
[2021-06-22 04:42] LABS: Anion Gap 2 mmol/L (6-16); Blood Urea Nitrogen 35 mg/dL (8-24); Bun/Creatinine Ratio 43.6 (12.0-20.0); CO2, Blood 38 mmol/L (21-32); Calcium, Blood 9.3 mg/dL (8.5-10.1); Chloride, Blood 103 mmol/L (98-108); Glomerular Filtration Rate >60 (60-); Glucose, Blood 226 mg/dL (70-99); Magnesium, Blood 2.4 mg/dL (1.6-2.4); Phosphorus, Blood 2.9 mg/dL (2.5-4.9); Potassium, Blood 4.1 mmol/L (3.5-5.5); Sodium, Blood 143 mmol/L (136-145)
--- NOTE | 2021-06-22 11:12 | NUR ---
ASSUMED CARE OF PT, REPORT RCV'D FROM TIANA GALEAS. VENT SETTINGS ADJUSTED THIS AM, CURRENT SETTINGS AC 16/450/12/60%. ETT ADJUSTED AND IS 29@ TEETH, VERIFIED BY XRAY. PROPOFOL @ 60 MCG/KG/MIN (BIS 40-60), NIMBEX @ 2.5 MCG/KG/MIN (1/4 TOF). PT TO BE PRONED THIS EVENING PER DR. MCKEON, PLAN TO TRACH WILL PLACE CONSULT FOR ENT. SEE FULL SHIFT ASSESSMENT.
--- NOTE | 2021-06-22 18:45 | NUR ---
SHIFT SUMMARY PT REMAINS INTUBATED, SEDATED, AND PARALYZED. VENT SETTING AC 16/450/12/60%, NIMBEX @ 2.5 MCG/KG/MIN, PROPOFOL @ 60 MCG/KG/MIN, PRECEDEX @ 0.7 MCG/KG/MIN. WILL REPORT TO ONCOMING NURSE.
[2021-06-23 03:38] LABS: BASOPHILS ABSOLUTE AUTO 0.05 K/mm3 (0.00-0.23); BASOPHILS PERCENT AUTO 0 % (0-2); EOSINOPHILS ABSOLUTE AUTO 0.11 K/mm3 (0.00-0.68); EOSINOPHILS PERCENT AUTO 1 % (0-6); Hematocrit 37.4 % (37.0-53.0); Hemoglobin 11.7 g/dL (13.5-17.5); IMMATURE GRAN ABSOLUTE AUTO 0.31 K/mm3 (0.00-0.10); IMMATURE GRAN PERCENT AUTO 3 % (0-1); LYMPHOCYTES PERCENT AUTO 9 % (21-46); MONOCYTES ABSOLUTE AUTO 0.87 K/mm3 (0.16-1.47); MONOCYTES PERCENT AUTO 7 % (4-13); Mean Corpuscular HGB 30.8 pg (26.0-34.0); Mean Corpuscular HGB Conc 31.3 g/dL (31.5-36.5); Mean Corpuscular Volume 98 fL (80-100); Mean Platelet Volume 11.8 fL (9.1-12.4); NEUTROPHILS ABSOLUTE AUTO 9.46 K/mm3 (1.96-9.15); NEUTROPHILS PERCENT AUTO 80 % (41-73); Platelet Count 200 K/mm3 (150-400); RDW Coefficient Variation 13.9 % (11.7-14.2); RDW Standard Deviation 50.3 fL (35.1-46.3)
[2021-06-23 03:55] LABS: Anion Gap 3 mmol/L (6-16); Blood Urea Nitrogen 35 mg/dL (8-24); Bun/Creatinine Ratio 52.7 (12.0-20.0); CO2, Blood 37 mmol/L (21-32); Calcium, Blood 8.8 mg/dL (8.5-10.1); Chloride, Blood 103 mmol/L (98-108); Creatinine, Blood 0.66 mg/dL (0.60-1.20); Glomerular Filtration Rate >60 (60-); Glucose, Blood 240 mg/dL (70-99); Magnesium, Blood 2.4 mg/dL (1.6-2.4); Phosphorus, Blood 2.7 mg/dL (2.5-4.9); Potassium, Blood 3.8 mmol/L (3.5-5.5); Sodium, Blood 143 mmol/L (136-145)
--- NOTE | 2021-06-23 05:40 | NUR ---
SHIFT SUMMARY PATIENT HAS SLEPT EWLL THRU NIGHT. HAD FIRST BM OF STAY. GAVE REGLAN, COLAGE, MILK OF MAGNESIUM, AND WARM PRUNE JUICE TA START OF SHIFT. X2 SMALL LOOSE BOWEL MOVEMENTS NOTED THRU SHIFT. TUVE FEEDS LOWER, NOTING ABOUT 40 ML EACH TIME ASSESSSED THRU SHIFT. GOOD URINE OUTPUT, ~3 00 Ml OUTPUT NOTED. ASSESSMENT IS CHARTED. VSS. WILL CONTINUE TO MONITOR.
--- NOTE | 2021-06-23 11:44 | NUR ---
Spoke with bedside nurse, Mitch. She reports Lalit is showing some improvement. He is currently being proned at this time with plans to unprone him around noon today. Nursing reports O2 requirements have decreased and the plan is to decrease some of his paralytic medication today. Offered to call pt's , Meagan, with an update. Spoke with Meagan and updated her on Lalit's status. Questions answered. Meagan states that she receives updates from the doctor daily and from nursing throughout the day as well. She is appreciative of the information and care Lalit is receiving. Meagan reports self care and states she will update the rest of her family. PC to remain available as needed. SOFA score = 3
--- NOTE | 2021-06-23 18:24 | NUR ---
SHIFT SUMMARY PT REMAINS INTUBATED AND SEDATED. VENT SETTINGS AC 16/450/12/40% WITH SATS 92-93%. NIMBEX REMAINS OFF. SEDATION INCREASED D/T AGITATION AND PT THRASHING HEAD BACK/FORTH. ETT RETAPED BY RT. PROPOFOL @ 65 MCG/KG/MIN, PRECEDEX @ 1.4 MCG/KG/HR WITH 4 MG ATIVAN PRN. 2200 ML URINARY OUTPUT. WILL REPORT TO ONCOMING NURSE.
[2021-06-24 03:50] LABS: BASOPHILS ABSOLUTE AUTO 0.03 K/mm3 (0.00-0.23); BASOPHILS PERCENT AUTO 0 % (0-2); EOSINOPHILS PERCENT AUTO 1 % (0-6); Hematocrit 34.4 % (37.0-53.0); Hemoglobin 11.3 g/dL (13.5-17.5); IMMATURE GRAN ABSOLUTE AUTO 0.28 K/mm3 (0.00-0.10); IMMATURE GRAN PERCENT AUTO 3 % (0-1); LYMPHOCYTES ABSOLUTE AUTO 1.33 K/mm3 (0.84-5.20); LYMPHOCYTES PERCENT AUTO 14 % (21-46); MONOCYTES ABSOLUTE AUTO 0.69 K/mm3 (0.16-1.47); MONOCYTES PERCENT AUTO 7 % (4-13); Mean Corpuscular HGB Conc 32.8 g/dL (31.5-36.5); Mean Corpuscular Volume 95 fL (80-100); Mean Platelet Volume 12.6 fL (9.1-12.4); NEUTROPHILS ABSOLUTE AUTO 7.15 K/mm3 (1.96-9.15); NEUTROPHILS PERCENT AUTO 75 % (41-73); NRBC ABSOLUTE 0.02 K/mm3 (0.00-0.02); NRBC Auto 0.2 /100 WBC (0.0-0.2); Platelet Count 187 K/mm3 (150-400); RDW Coefficient Variation 13.6 % (11.7-14.2); RDW Standard Deviation 47.2 fL (35.1-46.3); Red Blood Cell Count 3.64 M/mm3 (4.30-5.90); White Blood Cell Count 9.58 K/mm3 (4.00-11.30)
[2021-06-24 04:04] LABS: Anion Gap 4 mmol/L (6-16); Blood Urea Nitrogen 27 mg/dL (8-24); Bun/Creatinine Ratio 48.3 (12.0-20.0); CO2, Blood 35 mmol/L (21-32); Calcium, Blood 8.2 mg/dL (8.5-10.1); Chloride, Blood 103 mmol/L (98-108); Creatinine, Blood 0.56 mg/dL (0.60-1.20); Glomerular Filtration Rate >60 (60-); Glucose, Blood 221 mg/dL (70-99); Magnesium, Blood 2.2 mg/dL (1.6-2.4); Phosphorus, Blood 1.8 mg/dL (2.5-4.9); Potassium, Blood 3.9 mmol/L (3.5-5.5); Sodium, Blood 142 mmol/L (136-145)
--- NOTE | 2021-06-24 05:02 | NUR ---
SHIFT SUMMARY PATIENT HAS DONE WELL THRU NIGHT. HAVE HAD OCASSIONAL BOUTS OF DESATURATION, DOUBLE-STACKING BREATHS, RESOLVES WELL BY GIVING 2 MG ATIVAN BEFORE OR AFTER ANY REPOSITIONING ACTIVITY. STARTED WITH HIGH RESIDUAL OF 220, HAS DECREASED SLOWLY OVER NIGHT TO LOW OF 170, NO B.M. NOTED OF THIS NOTE BEING TYPED. ASSESSMENT IS CHARTED. VSS. WILL CONTINUE TO MONITOR.
--- NOTE | 2021-06-24 17:51 | NUR ---
SHIFT SUMMARY NO ACUTE CHANGES THIS SHIFT. PT REMAINS INTUBATED AND SEDATED. VENT SETTINGS AC 16, TV 450, PEEP 12, FIO2 55%. PT WITH BLOODY ETT SECRETIONS WITH SUCTION. PT SEDATED WITH PROPOFOL AT 65 MCG/KG/MIN AND PRECEDEX 1.4 MCG/KG/MIN. POWERGLIDE'S REMAIN C/D/I. PT DOES NOT FOLLOW ANY COMMANDS OR WITHDRAW TO NOXIOUS STIMULI, BUT DOES SHAKE HEAD SIDE TO SIDE OCCASIONALLY. SBW RESTRAINTS REMAIN IN PLACE. OGT IN PLACE WITH TF INFUSING AT GOAL RATE. CRANE TEMP PROBE IN PLACE WITH LARGE AMOUNT OF CLEAR YELLOW OUTPUT NOTED. VITAL SIGNS STABLE. WILL CONTINUE TO MONITOR AND REPORT OFF TO ONCOMING RN.
[2021-06-25 05:20] LABS: Base Excess Venous 11.4 mmol/L; Bicarbonate Venous 33.3 mmol/L (24.0-30.0); PCO2 Venous 54.7 mmHg (38-42); PO2 Venous 52.6 mmHg (38-42); pH Blood Venous 7.42 (7.34-7.37)
[2021-06-25 05:26] LABS: BASOPHILS ABSOLUTE AUTO 0.06 K/mm3 (0.00-0.23); BASOPHILS PERCENT AUTO 1 % (0-2); EOSINOPHILS ABSOLUTE AUTO 0.23 K/mm3 (0.00-0.68); EOSINOPHILS PERCENT AUTO 2 % (0-6); Hematocrit 33.9 % (37.0-53.0); Hemoglobin 10.8 g/dL (13.5-17.5); IMMATURE GRAN ABSOLUTE AUTO 0.44 K/mm3 (0.00-0.10); IMMATURE GRAN PERCENT AUTO 4 % (0-1); LYMPHOCYTES ABSOLUTE AUTO 1.89 K/mm3 (0.84-5.20); LYMPHOCYTES PERCENT AUTO 19 % (21-46); MONOCYTES ABSOLUTE AUTO 0.58 K/mm3 (0.16-1.47); MONOCYTES PERCENT AUTO 6 % (4-13); Mean Corpuscular HGB 30.6 pg (26.0-34.0); Mean Corpuscular HGB Conc 31.9 g/dL (31.5-36.5); Mean Corpuscular Volume 96 fL (80-100); Mean Platelet Volume 12.2 fL (9.1-12.4); NEUTROPHILS ABSOLUTE AUTO 6.99 K/mm3 (1.96-9.15); NEUTROPHILS PERCENT AUTO 69 % (41-73); Platelet Count 167 K/mm3 (150-400); RDW Coefficient Variation 13.6 % (11.7-14.2); RDW Standard Deviation 48.2 fL (35.1-46.3); Red Blood Cell Count 3.53 M/mm3 (4.30-5.90); White Blood Cell Count 10.19 K/mm3 (4.00-11.30)
[2021-06-25 05:52] LABS: Anion Gap 4 mmol/L (6-16); Blood Urea Nitrogen 29 mg/dL (8-24); Bun/Creatinine Ratio 48.1 (12.0-20.0); CO2, Blood 32 mmol/L (21-32); Calcium, Blood 8.6 mg/dL (8.5-10.1); Chloride, Blood 103 mmol/L (98-108); Glomerular Filtration Rate >60 (60-); Glucose, Blood 247 mg/dL (70-99); Magnesium, Blood 2.3 mg/dL (1.6-2.4); Phosphorus, Blood 2.8 mg/dL (2.5-4.9); Potassium, Blood 3.3 mmol/L (3.5-5.5); Sodium, Blood 139 mmol/L (136-145)
--- NOTE | 2021-06-25 06:27 | NUR ---
NO UNUSUAL EVENTS DURING THE NIGHT. SEDATED UNDER PROPOFOL AND PRECEDEX. WAKING UP TO STIMULI EASILY. PUPILS ARE EQUAL AND REACTIVE. NOT FOLLOWING COMMANDS. RESPIRATORY UNDER MECHANICAL VENTILATION. MINIMAL SECRETIONS FROM ETT. HEMODYNAMIC STABLE W/O SUPPORT. PULSE IN SINUS BRADYCARDIA RHYTHM, AROUND 55 BPM. URINE VIA CRANE CATHETER, NORMAL OUTPUT.
--- NOTE | 2021-06-25 18:16 | NUR ---
SHIFT SUMMARY NO ACUTE CHANGES THIS SHIFT. PT HAS REMAINED INTUBATED AND SEDATED THIS SHIFT. VENT SETTINGS CHANGED THIS AM BY DR MCKEON TO PRESSURE CONTROL 8, PEEP 12, RR 16, FIO2 50%. PT SEDATED WITH PROPOFOL AT 60 MCG/KG/MIN, AND PRECEDEX AT 1.0 MCG/KG/MIN. PICC LINE PLACED TO IVORY THIS SHIFT WITH GTT'S INFUSING. POWERGLIDE TO RENO SALINE LOCKED. OGT IN PLACE WITH TF INFUSING AT GOAL RATE. PT WITH PERIODS OF OPENING EYES AND SHAKING HEAD SIDE TO SIDE, BUT DOES NOT FOLLOW ANY DIRECTIONS. SBW RESTRAINTS IN PLACE. CRANE TEMP PROBE IN PLACE WITH LARGE VOLUME OF CLEAR YELLOW OUTPUT THIS SHIFT. VITAL SIGNS STABLE. WILL CONTINUE TO MONITOR AND REPORT OFF TO ONCOMING RN.
--- NOTE | 2021-06-25 19:35 | NUR ---
ASSUMED CARE OF PT AT 1900, REPORT RECEIVED FROM SAKSHI MONTIEL. PT INTUBATED AND SEDATED. PROPOFOL INFUSING @ 60 MCG/KG/MIN AND PRECEDEX @ 1 MCG/KG/HR. VENT SETTINGS PC 16, PEEP 12, FIO2 50% PT TOLERATING WELL WITH SPO2 97%. CRANE DRAINING TO GRAVITY. TF VHP RUNNING AT GOAL RATE OF 25 ML/HR WITH 30 ML Q4H WATER FLUSHES. OGT RESIDUALS OF 60 ML.
[2021-06-26 04:47] LABS: BASOPHILS ABSOLUTE AUTO 0.07 K/mm3 (0.00-0.23); BASOPHILS PERCENT AUTO 1 % (0-2); EOSINOPHILS ABSOLUTE AUTO 0.32 K/mm3 (0.00-0.68); EOSINOPHILS PERCENT AUTO 3 % (0-6); Hematocrit 32.5 % (37.0-53.0); Hemoglobin 10.6 g/dL (13.5-17.5); IMMATURE GRAN ABSOLUTE AUTO 0.55 K/mm3 (0.00-0.10); IMMATURE GRAN PERCENT AUTO 5 % (0-1); LYMPHOCYTES ABSOLUTE AUTO 1.92 K/mm3 (0.84-5.20); LYMPHOCYTES PERCENT AUTO 17 % (21-46); MONOCYTES ABSOLUTE AUTO 0.56 K/mm3 (0.16-1.47); MONOCYTES PERCENT AUTO 5 % (4-13); Mean Corpuscular HGB 30.8 pg (26.0-34.0); Mean Corpuscular HGB Conc 32.6 g/dL (31.5-36.5); Mean Corpuscular Volume 95 fL (80-100); Mean Platelet Volume 12.6 fL (9.1-12.4); NEUTROPHILS PERCENT AUTO 70 % (41-73); Platelet Count 179 K/mm3 (150-400); RDW Coefficient Variation 13.4 % (11.7-14.2); RDW Standard Deviation 45.9 fL (35.1-46.3); Red Blood Cell Count 3.44 M/mm3 (4.30-5.90); White Blood Cell Count 11.22 K/mm3 (4.00-11.30)
[2021-06-26 05:05] LABS: Anion Gap 4 mmol/L (6-16); Blood Urea Nitrogen 25 mg/dL (8-24); Bun/Creatinine Ratio 46.5 (12.0-20.0); CO2, Blood 34 mmol/L (21-32); Chloride, Blood 102 mmol/L (98-108); Creatinine, Blood 0.54 mg/dL (0.60-1.20); Glomerular Filtration Rate >60 (60-); Glucose, Blood 141 mg/dL (70-99); Magnesium, Blood 2.3 mg/dL (1.6-2.4); Phosphorus, Blood 2.4 mg/dL (2.5-4.9); Potassium, Blood 3.2 mmol/L (3.5-5.5); Sodium, Blood 140 mmol/L (136-145)
--- NOTE | 2021-06-26 06:13 | NUR ---
SHIFT SUMMARY PT REMAINS INTUBATED AND SEDATED. PROPOFOL INFUSING @ 60 MCG/KG AND PRECEDEX @ 1 MCG/KG. PT OPENS EYES WHEN SEDATION LIGHTENED, MOVES HEAD SIDE TO SIDE; DID NOT FOLLOW COMMANDS THIS SHIFT. BILATERAL SOFT WRIST RESTRAINTS REMAIN IN PLACE THIS SHIFT. VENT SETTINGS REMAIN UNCHANGED T/O SHIFT, CURRENTLY PC 16, PEEP 12, FIO2 50% WITH SPO2 MAINTAINED >90%. TF TURNED OFF AT 0400 THIS SHIFT FOR POSSIBLE PEG TUBE PLACEMENT TODAY. CRANE DRAINING YELLOW URINE TO GRAVITY. VSS.
--- NOTE | 2021-06-26 07:30 | NUR ---
ASSUMED CARE REPORT FROM SHERMAN/DANIELA MONTIEL. PT INTUBATED, SEDATED. VENT SETTINGS AC/PC 16/12/50%. PT INTERMITTANTLY BREATH STACKING. LUNGS DIM, MODERATE BLOOD TINGED SPUTUM OUT THROUGH ETT. COUGH REFLEX. RESPONSES TO PAINFUL STIMULI. DOES NOT FOLLOW COMMANDS. PRECEDEX AND [id number] GTT INFUSING. TUBE FEEDS PLACED ON STANDBY FOR TRACH AND PEG PROCEDURE THIS SHIFT. ABD ROUND, SOFT, NON TENDER. BT X 4. CRANE PATENT, DRAINING TO GRAVITY. SMALL AMOUNT OF BLOODY DRAINAGE FROM URETHRA. PICC TO RUE, DRESSING C/D/I. POWERGLIDE TO RUE, DRESSING C/D/I. VSS. SR, RATE 60'S. WILL CONTINUE TO MONITOR.
--- NOTE | 2021-06-26 11:58 | NUR ---
restarted tube feeding as pt will not be trached until tomorrow. Rate increased to 35 cc/hour per orders.
--- NOTE | 2021-06-26 13:03 | NUR ---
REASSESSMENT NO ACUTE CHANGES. TUBE FEEDS RESTARTED. PLAN TO TRACH TOMORROW. HOLD LOVENOX AND APPLIED SCDS.
--- NOTE | 2021-06-26 18:12 | NUR ---
SHIFT SUMMARY PT REMAINS INTUBATED AND SEDATED. VENT SETTINGS 16/450/12/55%. LUNGS DIM THROUGHOUT. SMALL AMOUNT OF BLOODY SECRETIONS THROUGH ETT. PLAN FOR TRACH TOMORROW. PT RESPONSIVE TO PAINFUL STIMULI. DOES NOT FOLLOW DIRECTIONS. PROPOFOL AND PRECEDEX GTT FOR SEDATION. TUBE FEEDS RESTARTED THIS SHIFT AT GOAL. CRANE PATENT, DRAINING TO GRAVITY. VSS. WILL CONTINUE TO MONITOR UNTIL REPORT TO ONCOMING NURSE.
--- NOTE | 2021-06-27 | NUR ---
KELSEY CONTINUES ON THE VENTILATOR, HIS PC SETTING WAS INCREASED FROM 8 TO 11 BY RESP.THER. HE IS TOLERATING THE VENT A BIT BETTER, LESS STACKING OF BREATHS PROPOFOL CONTINUES AT 60 MCG/KG/MIN PRECEDEX 1.4 MCG/KG/HR. PUPILS REACTIVE, ABD SOFT, CRANE TO GRAVITY.
--- NOTE | 2021-06-27 04:38 | NUR ---
KELSEY CONTINUES ON THE VENT, PC 16 FIO2 @ 45%, PS 11, PEEP 12, PT CONTINUES TO MOVE HIS HEAD SIDE TO SIDE AND DOES NOT FOLLOW COMMANDS. HE HAS RED RETURN FROM ET SUCTION, ABDOMEN CONTINUES ROUND,SOFT AND HYPO ACTIVE, CRANE TO GRAVITY DRAINAGE. PRECEDEX @ 1.4, PROPOFOL @ 60.
[2021-06-27 05:02] LABS: Mean Corpuscular Volume 94 fL (80-100); Platelet Count 169 K/mm3 (150-400); RDW Coefficient Variation 13.2 % (11.7-14.2); RDW Standard Deviation 45.3 fL (35.1-46.3); Red Blood Cell Count 3.18 M/mm3 (4.30-5.90); White Blood Cell Count 9.43 K/mm3 (4.00-11.30)
[2021-06-27 05:18] LABS: Hemoglobin 11.3 g/dL (13.5-17.5); Mean Platelet Volume 13.2 fL (9.1-12.4)
--- NOTE | 2021-06-27 06:30 | NUR ---
KELSEY CONTINUES ON VENTILATOR, FIO2 DOWN TO 35% WITH SATS >95%, PROPOFOL AND PRECEDEX CONTINUES, PT CONTINUES TO MOVE HEAD, DOESN'T FOLLOW COMMANDS, NO SPONTANEOUS MOVEMENT OF EXTREMITIES, GOOD URINE OUTPUT, NO BM, LUNG SOUNDS DIM
[2021-06-27 06:42] LABS: Anion Gap 8 mmol/L (6-16); Blood Urea Nitrogen 20 mg/dL (8-24); Bun/Creatinine Ratio 47.1 (12.0-20.0); CO2, Blood 29 mmol/L (21-32); Calcium, Blood 7.9 mg/dL (8.5-10.1); Chloride, Blood 92 mmol/L (98-108); Creatinine, Blood 0.43 mg/dL (0.60-1.20); Glomerular Filtration Rate >60 (60-); Glucose, Blood 147 mg/dL (70-99); Potassium, Blood 4.2 mmol/L (3.5-5.5)
[2021-06-27 06:43] LABS: Sodium, Blood 129 mmol/L (136-145)
[2021-06-27 07:20] LABS: Mean Corpuscular HGB Conc 32.3 g/dL (31.5-36.5)
[2021-06-27 07:28] LABS: BASOPHILS ABSOLUTE MAN 0.09 K/mm3 (0.00-0.23); BASOPHILS PERCENT MAN 1 % (0-2); EOSINOPHILS ABSOLUTE MAN 0.09 K/mm3 (0.00-0.68); EOSINOPHILS PERCENT MAN 1 % (0-6); LYMPHOCYTES PERCENT MAN 17 % (21-46); MONOCYTES ABSOLUTE MAN 0.18 K/mm3 (0.16-1.47); MONOCYTES PERCENT MAN 2 % (4-13); MYELOCYTE ABSOLUTE MAN 0.47 K/mm3 (0.00-0.00); MYELOCYTE PERCENT MAN 5 % (0-0); NEUTROPHILS ABSOLUTE MAN 6.97 K/mm3 (1.96-9.15); SEG NEUTROPHILS PERCENT MAN 74 % (41-73); TOTAL CELLS COUNTED 100
[2021-06-27 10:44] LABS: International Normalized Ratio 0.99; Prothrombin Time Results 10.7 Sec (9.7-11.5)
--- NOTE | 2021-06-27 11:29 | NUR ---
ASSUMED CARE OF PT, REPORT RCV'D FROM TIANA DUNBAR. PT INTUBATED AND SEDATED VENT SETTINGS AC 16/450/12/55%. PT TRACHED THIS MORNING AT BEDSIDE, TRACH 8.0 PERC SHILEY. PT SEDATED WITH PROPOFOL 65 MCG/KG/MIN AND PRECEDEX 1.4 MCG/KG/HR. OGT REMOVED AND TF PLACED ON STANDBY FOR PROCEDURE. WILL PLACE DOBHOFF AND RESUME TUBEFEEDING THIS AFTERNOON. PT SPONTANEOUS OPENS EYES, TURNED HEAD TOWARDS VERBAL STIMULATION X1, FAILS TO FOLLOW COMMANDS AT THIS TIME. CRANE PATENT AND DRAINING TO GRAVITY. SEE FULL SHIFT/SURGE ASSESSMENT.
--- NOTE | 2021-06-27 18:22 | NUR ---
Updated on pt recieving trach. theraputic conversation iwth got information on his family and hobbies gave card to nurse so they can talk to him about familar things and his family.
--- NOTE | 2021-06-27 18:32 | NUR ---
Oral care and repositioning of pt. hips floated on pillows. Noted spontaneous coughing requiring suctioning of blood tinged clear secretions. Twice during care the ventilator tubing spontaneously popped off of the trache tubing. Trache tube was wiped on the outside with sterile alcohol and sterile gauze to remove moisture and prevent slipping again. After this, it has held without coming loose for 10 minutes. Care was completed. Pt noted to be making lots of movements with his mouth and eyes. he is responding to questions with shaking of his head, what appears to be attempting speech, and squeezing a hand to command. he also has lots of spontaneous mouth movements and head shaking and pursing of lips when he is not with anyone. He smiled very big when a nurse came to the window to communicate with RN inside of the room.
--- NOTE | 2021-06-27 18:39 | NUR ---
SHIFT SUMMARY PT REMAINS ON VENTILATOR, SPONTANEOUS VENT SETTINGS 10/10, 50%. PT MINIMAMALLY SEDATED AND ABLE TO SQUEEZE HANDS ON COMMAND, PT MOVES EYES TOWARD VERBAL STIMULUS. VSS T/O SHIFT. PT'S UPDATED WITH PTS PROGRESS AND PT'S CALLED FROM PT'S ROOM SO THAT HE CAN CAN HE HEAR HER VOICE. WILL REPORT TO ONCOMING NURSE.
--- NOTE | 2021-06-28 | NUR ---
UPDATE: DOBHOFF PLACED, CXR CONFIRMATION, TF RESTARTED. VHP RESTARTED PREVIOUSLY ORDERED VIA DOBHOFF @ INITIAL RATE OF 20ml/hr w/ 30ml FLUSHES Q4hr. WILL INCREASE RATE TO GOAL OF 35ml/hr IN APPROX 8hr PER ORDER PARAMETERS. CXR READ & CONFIRMED BY ERICA, SEE NURSE NOTIFY.
--- NOTE | 2021-06-28 00:25 | NUR ---
KELSEY'S TEMPERATURE HAS CLIMBED TO 103.5. ACETAMINOPHEN SUPPOSITORY WAS GIVEN PER DEC, HIS PROPOFOL IS UP TO 35MCG/KG/MIN AND HE CONTINUES TO SHAKE HIS HEAD AND STARE OFF IN TO SPACE, HE IS MOVING HIS LEGS, BUT NO LONGER FOLLOWING COMMANDS. HE CONTINUES TO MAKE FACES AND STICK OUT HIS TONGUE, OFTEN BITING IT. HE CONTINUES COUGHING AND POPPING OFF THE VENTILATOR TUBING FROM HIS TRACH HIS PUPILS ARE NOW SLUGGISH TO REACT AND UNEQUAL IN SIZE, HIS LEFT IS SLIGHTLY SMALLER THAN THE RIGHT. AND THE RIGHT IS MORE REACTIVE THAN THE LEFT.
[2021-06-28 04:18] LABS: BASOPHILS ABSOLUTE AUTO 0.06 K/mm3 (0.00-0.23); BASOPHILS PERCENT AUTO 0 % (0-2); EOSINOPHILS ABSOLUTE AUTO 0.08 K/mm3 (0.00-0.68); EOSINOPHILS PERCENT AUTO 1 % (0-6); Hematocrit 34.4 % (37.0-53.0); Hemoglobin 11.7 g/dL (13.5-17.5); IMMATURE GRAN ABSOLUTE AUTO 0.62 K/mm3 (0.00-0.10); IMMATURE GRAN PERCENT AUTO 4 % (0-1); LYMPHOCYTES ABSOLUTE AUTO 1.44 K/mm3 (0.84-5.20); LYMPHOCYTES PERCENT AUTO 8 % (21-46); MONOCYTES ABSOLUTE AUTO 0.83 K/mm3 (0.16-1.47); MONOCYTES PERCENT AUTO 5 % (4-13); Mean Corpuscular HGB 31.3 pg (26.0-34.0); Mean Corpuscular Volume 92 fL (80-100); Mean Platelet Volume 11.3 fL (9.1-12.4); NEUTROPHILS PERCENT AUTO 82 % (41-73); NRBC ABSOLUTE 0.02 K/mm3 (0.00-0.02); NRBC Auto 0.1 /100 WBC (0.0-0.2); Platelet Count 233 K/mm3 (150-400); RDW Coefficient Variation 13.5 % (11.7-14.2); RDW Standard Deviation 45.3 fL (35.1-46.3); Red Blood Cell Count 3.74 M/mm3 (4.30-5.90); White Blood Cell Count 17.23 K/mm3 (4.00-11.30)
[2021-06-28 04:44] LABS: Magnesium, Blood 1.9 mg/dL (1.6-2.4)
[2021-06-28 05:29] LABS: Albumin, Blood 2.2 g/dL (3.4-5.0); Anion Gap 6 mmol/L (6-16); Blood Urea Nitrogen 27 mg/dL (8-24); Bun/Creatinine Ratio 34.5 (12.0-20.0); CO2, Blood 32 mmol/L (21-32); Calcium, Blood 8.7 mg/dL (8.5-10.1); Chloride, Blood 101 mmol/L (98-108); Creatinine, Blood 0.78 mg/dL (0.60-1.20); Glomerular Filtration Rate >60 (60-); Glucose, Blood 83 mg/dL (70-99); Phosphorus, Blood 0.7 mg/dL (2.5-4.9); Potassium, Blood 3.1 mmol/L (3.5-5.5)
[2021-06-28 06:01] LABS: Sodium, Blood 139 mmol/L (136-145)
--- NOTE | 2021-06-28 06:05 | NUR ---
KELSEY HAS BEEN AWAKE AND EYES OPEN THE ENTIRE NIGHT. HE CONTINUES WITH HEAD MOVEMENTS, TONGUE WAGGING, LICKING MANEUVER AND BITING OF THE TONGUE. HIS EYES CONTINUE TO BE SLIGHTLY UNEQUAL WITH R>L, AND LEFT REACTING BETTER THAN RIGHT. HE IS NO LONGER FOLLOWING COMMANDS, PRECEDEX @ 0.3MCG/KG, PROPOFOL @ 35 MCG/KG HIS LEFT ARM WAS LIFTED AND LET GO OF, IT FELL BACK TO THE BED WITHOUT ANY EFFORT FROM HIM. HE CONTINUES ON THE VENT, SPONTANEOUS 10/10 FIO2 65%. CRANE TO GRAVITY DRAINAGE, TF (VHP) @ 20ML/HR.
--- NOTE | 2021-06-28 11:39 | NUR ---
VENT SETTINGS SPONTANEOUS 10/10, 50%. PT ON MINIMAL SEDATION TO ASSESS NEUROLOGICAL FUNCTION, PROPOFOL @ 15 MCG/KG/MIN, PRECEDEX @ 0.3 MCG/KG/HR. PT NO PURPOSEFUL MOVEMENT NOTED, PT FAILS TO FOLLOW COMMANDS AT THIS TIME. PT TEMP 102 AT START OF SHIFT, ICE PACKS PLACED AND PT GIVEN MEDICATIONS PER EMAR.
--- NOTE | 2021-06-28 18:53 | NUR ---
NO ACUTE CHANGES THIS SHIFT. PT REMAINS INTBUTED, VENT SETTINGS UNCHANGED 10/10, 55%. NO PURPOSEFUL MOVEMENT NOTICED. RIGHT PUPIL 5-7 MM, BRISK/REACTIVE, LEFT PUPIL 3 MM. PT FEBRILE THIS AFTERNOON, TREATED PER EMAR. WILL REPORT TO ONCOMING NURSE.
[2021-06-28 19:55] LABS: Source, Urine Catheter
[2021-06-28 19:58] LABS: Bilirubin, Urine Neg (Neg); Blood, Urine 3+ (Neg); Glucose Qualitative, Urine 2+ (Neg); Ketones, Urine Neg (Neg); Leukocyte Esterase, Urine Neg (Neg); Nitrite, Urine Neg (Neg); Protein, Urine 2+ (Neg); Urobilinogen, Urine NORM (Normal)
[2021-06-28 20:07] LABS: Appearance, Urine Hazy (Clear); Color, Urine Yellow (P-Yellow)
[2021-06-28 20:08] LABS: Amorphous Mod (0-Heavy); Bacteria Few /hpf; Squamous Epithelial Cells Few /hpf (Few); White Blood Cells, Urine Not Seen /hpf (0-5)
--- NOTE | 2021-06-28 20:20 | NUR ---
Review of pt in rounds will contact family tomorrowwith updates and support.
--- NOTE | 2021-06-29 01:08 | NUR ---
PT CONTINUES ON VENT, NO CHANGES IN SETTINGS OR DRIPS SINCE INIT. ASSESSMENT. PT BEING TURNED Q2, PT WITH LESS HEAD SHAKING AND SEEMS TO BE TRYING TO FOLLOW COMMANDS, IS TURNING HEAD TOWARD VOICE AND TRIES TO MOVE FEET WHEN ASKED TO WIGGLE TOES. HE HAS COUGHED SO HARD TO BLOW OFF HIS CIRCUIT ONCE. BATH BEING DONE.
--- NOTE | 2021-06-29 04:00 | NUR ---
KELSEY CONTINUES TO BE ALERT AND BRIGHT EYED, HE IS TRYING TO FOLLOW COMMANDS, HE IS MOVING HIS FEET/ANKLES WHEN ASKED TO WIGGLE TOES, HE IS STARTING TO MOVE HIS ARMS SOME, HIS LEGS CONTINUE TO STIFFEN ON OCC. HE SEEMS TO BE LOOKING AT ME WHEN ASKED TO DO SO, HIS HEAD SHAKING IS LESS THAN YESTERDAY. HE CONTINUES COUGHING WITH MCINTYRE/WHITE RED STREAKED RETURN WITH TRACHEAL SUCTIONING. HIS SKIN CONTINUES TO FEEL HOT, TEMP HAS DECREASED. SULEIMAN AREA IS RED.
[2021-06-29 04:48] LABS: Hematocrit 30.2 % (37.0-53.0); Hemoglobin 10.1 g/dL (13.5-17.5); Mean Corpuscular HGB Conc 33.4 g/dL (31.5-36.5); Mean Corpuscular Volume 93 fL (80-100); NRBC ABSOLUTE 0.02 K/mm3 (0.00-0.02); NRBC Auto 0.1 /100 WBC (0.0-0.2); Platelet Count 205 K/mm3 (150-400); RDW Coefficient Variation 14.2 % (11.7-14.2); RDW Standard Deviation 47.7 fL (35.1-46.3); Red Blood Cell Count 3.26 M/mm3 (4.30-5.90); White Blood Cell Count 13.63 K/mm3 (4.00-11.30)
[2021-06-29 05:12] LABS: Alanine Aminotransfer (ALT/SGP 61 U/L (12-78); Albumin, Blood 1.9 g/dL (3.4-5.0); Albumin/Globulin Ratio 0.4 (0.8-1.8); Alk Phos 99 U/L (50-136); Anion Gap 4 mmol/L (6-16); Aspartate Aminotrans (AST/SGOT 31 U/L (12-37); Blood Urea Nitrogen 25 mg/dL (8-24); Bun/Creatinine Ratio 32.7 (12.0-20.0); CO2, Blood 31 mmol/L (21-32); Calcium, Blood 7.5 mg/dL (8.5-10.1); Chloride, Blood 104 mmol/L (98-108); Creatinine, Blood 0.77 mg/dL (0.60-1.20); Globulin, Blood 4.5 g/dL (2.2-4.0); Glomerular Filtration Rate >60 (60-); Glucose, Blood 252 mg/dL (70-99); Phosphorus, Blood 1.7 mg/dL (2.5-4.9); Sodium, Blood 139 mmol/L (136-145); Total Protein, Blood 6.4 g/dL (6.4-8.2)
[2021-06-29 05:52] LABS: Base Excess Venous 8.4 mmol/L; Bicarbonate Venous 31.3 mmol/L (24.0-30.0); PCO2 Venous 44.7 mmHg (38-42); PO2 Venous 142 mmHg (38-42); pH Blood Venous 7.47 (7.34-7.37)
[2021-06-29 05:52] LABS: BAND PERCENT MAN 17 % (0-8); BASOPHILS PERCENT MAN 0 % (0-2); EOSINOPHILS PERCENT MAN 0 % (0-6); LYMPHOCYTES ABSOLUTE MAN 1.49 K/mm3 (0.84-5.20); LYMPHOCYTES PERCENT MAN 11 % (21-46); MONOCYTES ABSOLUTE MAN 0.68 K/mm3 (0.16-1.47); MONOCYTES PERCENT MAN 5 % (4-13); NEUTROPHILS ABSOLUTE MAN 11.44 K/mm3 (1.96-9.15); SEG NEUTROPHILS PERCENT MAN 67 % (41-73); TOTAL CELLS COUNTED 100
--- NOTE | 2021-06-29 06:38 | NUR ---
KELSEY HAS CONTINUED IN SPONTANEOUS MODE ON THE VENTILATOR 08/11 55% FIO2. HIS TEMP HAS COME DOWN WITH COOLING MEASURES TO 101.1. HE CONTINUES ON PROPOFOL @ 15 MCG/KG, PRECEDEX @ 0.3MCG/KG, NS @ TKO, CBG'S 265 AND 254 WITH COVERAGE. TF PIVOT @ 60ML, HE IS FOLLOWING SOME COMMANDS, HE CONTINUES TO COUGH WITH TRACHEAL SUCTION RETURN OF MOD.AMTS OF MCINTYRE, RED STREAKED SPUTUM. CRANE TO GRAVITY DRAINAGE WITH GOOD URINE OUTPUT. HE CONTINUES IN SIN.TACH.
--- NOTE | 2021-06-29 08:00 | NUR ---
ASSUMED CARE FROM NOC SHIFT. PATIENT TOLERATING PRESSUR SUPPORT SETTINGS. INCREASE ALTERNESS AND ABLE TO FOLLOW SOME SIMPLE COMMANDS. CONTINUES TO HAVE BLANK STARE WITH MOVEMENT IN MOUTH AND STICKING OUT OF TONGUE AT TIMES. CONTINUE TO MONITOR AND TX PRN.
--- NOTE | 2021-06-29 08:45 | NUR ---
DR MCKEON AT BEDSIDE. PLACED PROPOFOL GTT ON STANDBY AND CONTINUE PRECEDEX GTT WHILE ON PRESSURE SUPPORT. DR MCKEON MADE SOME CHANGES TO VENT SETTINGS, DECREASE PRESSURE TO 8, PEEP 8. CONTINUE TO MONITOR AND TX PRN.
--- NOTE | 2021-06-29 15:02 | NUR ---
SPOKE WITH PATIENT'S SON DELON AT 1349 AND UPDATE ON FATHER'S STATUS AND VERBALIZED UNDERSTANDING.
--- NOTE | 2021-06-29 15:06 | NUR ---
TYLENOL GIVEN FOR FEVER AT 1230ISH FOR 101 TEMP. MODERATE RESULTS WITH MED, LOW GRADE TEMP 100'S. CONTINUE TO MONITOR AND TX PRN.
[2021-06-29 18:48] LABS: Vancomycin, Trough 18.7 ug/mL (5.0-10.0)
--- NOTE | 2021-06-29 18:50 | NUR ---
SHIFT SUMMARY PATIENT DONE WELL TODAY. CONTINUE TO TRACK WHEN UP CLOSE. CONTINUE TO FOLLOW SIMPLE COMMANDS, SQUEEZING FINGERS. CONTINUES TO HAVE MOUTH MOVEMENT WITH TONGUE. UP TO CHAIR TODAY WITH LIFT; TOLERATED WELL. CONTINUE WITH SAME VENT SETTINGS BUT ABLE TO TITRATE FIO2 TO 50% WITH SATS >90%. FEBRILE THIS AM, TYLENOL WAS GIVEN, LOW GRADE TEMP 100'S. TOLERATING TUBE FEEDS AT GOAL RATE 60ML/HR WITH 30ML Q4. HIGH BLOOD SUGARS TODAY, CHANGE CBG'S TO Q4 WITH HIGH SS. NO OTHER CHANGES NOTED, WILL REPORT OFF TO NOC SHIFT.
--- NOTE | 2021-06-29 19:15 | NUR ---
ASSUMPTION OF CARE PT REMAINS ON VENT VIA TRACH WITH SETTINGS SP 8/8 FIO2 50%. PT IS AWAKE, LOOKING AROUND ROOM. PT HAS ERRATIC EYE WIDENING AND MOVEMENT ALONG WITH UNCONTROLLED JAW MOVEMENT. WHEN TALKING, PT MAKES EYE CONTACT. NODS HEAD YES/NO TO QUESTIONS. STRONG BILAT HAND SQUEEZES, ABLE TO WIGGLE TOES. DOBHOFF IN PLACE INFUSING PIVOT 1.5 AT GOAL RATE. PT RECEIVING PRECEDEX AT 0.6MCG/KG/HR, INCREASED TO 0.8MCG/KG/HR. PT DENIES PAIN OR DISCOMFORT. TEMP CRANE IN PLACE DRAINING PALE YELLOW URINE. SEE SHIFT ASSESSMENT.
--- NOTE | 2021-06-30 03:15 | NUR ---
ATIVAN PT HAVING ERRATIC EYE AND JAW MOVEMENT, APPEARING SOMEWHAT AGITATED. PULLED ATIVAN FROM [facility]. AFTER ENTERING PT ROOM AND EXPLAINING I HAD MEDICATION, PT CLEARLY SHOOK HIS HEAD NO. I ASKED IF HE WANTED THE MEDICATION TO WHICH HE SHOOK HIS HEAD AGAIN. MEDICATION NOT GIVEN TO PT, ATIVAN WASTED AT [facility] WITH JULIANO BARNARD RN.
[2021-06-30 03:40] LABS: BASOPHILS ABSOLUTE AUTO 0.02 K/mm3 (0.00-0.23); BASOPHILS PERCENT AUTO 0 % (0-2); EOSINOPHILS PERCENT AUTO 1 % (0-6); Hemoglobin 9.6 g/dL (13.5-17.5); IMMATURE GRAN ABSOLUTE AUTO 0.56 K/mm3 (0.00-0.10); IMMATURE GRAN PERCENT AUTO 5 % (0-1); LYMPHOCYTES ABSOLUTE AUTO 1.08 K/mm3 (0.84-5.20); LYMPHOCYTES PERCENT AUTO 9 % (21-46); MONOCYTES ABSOLUTE AUTO 0.74 K/mm3 (0.16-1.47); MONOCYTES PERCENT AUTO 6 % (4-13); Mean Corpuscular Volume 94 fL (80-100); Mean Platelet Volume 11.2 fL (9.1-12.4); NEUTROPHILS ABSOLUTE AUTO 9.32 K/mm3 (1.96-9.15); NEUTROPHILS PERCENT AUTO 79 % (41-73); NRBC ABSOLUTE 0.02 K/mm3 (0.00-0.02); NRBC Auto 0.2 /100 WBC (0.0-0.2); Platelet Count 232 K/mm3 (150-400); RDW Coefficient Variation 14.6 % (11.7-14.2); RDW Standard Deviation 49.6 fL (35.1-46.3); White Blood Cell Count 11.82 K/mm3 (4.00-11.30)
[2021-06-30 03:59] LABS: Alanine Aminotransfer (ALT/SGP 121 U/L (12-78); Albumin, Blood 1.9 g/dL (3.4-5.0); Albumin/Globulin Ratio 0.4 (0.8-1.8); Alk Phos 103 U/L (50-136); Anion Gap 4 mmol/L (6-16); Aspartate Aminotrans (AST/SGOT 74 U/L (12-37); Bilirubin, Total 0.8 mg/dL (0.1-1.0); Blood Urea Nitrogen 34 mg/dL (8-24); Bun/Creatinine Ratio 41.1 (12.0-20.0); CO2, Blood 32 mmol/L (21-32); Calcium, Blood 8.3 mg/dL (8.5-10.1); Chloride, Blood 106 mmol/L (98-108); Creatinine, Blood 0.83 mg/dL (0.60-1.20); Globulin, Blood 4.8 g/dL (2.2-4.0); Glomerular Filtration Rate >60 (60-); Glucose, Blood 274 mg/dL (70-99); Potassium, Blood 3.5 mmol/L (3.5-5.5); Sodium, Blood 142 mmol/L (136-145); Total Protein, Blood 6.7 g/dL (6.4-8.2)
--- NOTE | 2021-06-30 05:35 | NUR ---
SHIFT SUMMARY PT REMAINS ON VENT VIA TRACH. VENT SETTINGS SPONTANEOUS 8/8 FIO2 50%. PT TOLERATING WELL. OCCASIONAL COUGH WITH MCINTYRE SPUTUM DURING SUCTIONING. LUNG SOUNDS REMAIN COARSE AND DIM IN BASES. PT RECEIVING PRECEDEX AT 1.0MCG/KG/HR. TUBE FEEDING INFUSING VIA DOBHOFF AT GOAL RATE. PT WAKENS TO VERBAL STIMULI, ANSWERS QUESTIONS BY SHAKING HEAD YES/NO. PT SLEPT FOR ROUGHLY HALF OF THE NIGHT, OTHERWISE AWAKE AND WATCHING TV. CBG Q4HRS, REQUIRING INSULIN COVERAGE THIS SHIFT. HR REMAINED BETWEEN 70S-90S, NSR. SBP 100S-150S. TEMP CRANE REMAINS IN PLACE DRAINING URINE. BEGINNING OF SHIFT WAS PALE YELLOW URINE, NEAR END OF SHIFT URINE HAS BECOME STRAW YELLOW WITH A CLOUDY/SEDIMENT APPEARANCE. TOTAL SHIFT OUTPUT OF 0ML. WILL REPORT TO ONCOMING RN.
--- NOTE | 2021-06-30 11:30 | NUR ---
FAMILY ARRIVED OUTSIDE OF BEDROOM [place]. FAMILY TALKING TO PATIENT VIA BED PHONE AND IS ENGAGING WITH THEM. VSS. PATIENT SEEMS CALM AND TRIES TO TALK WITH FAMILY. EDUCATED PATIENT HE CAN'T TALK AND ONLY LISTEN.
--- NOTE | 2021-06-30 13:44 | NUR ---
TYLENOL GIVEN FOR LOW GRADE TEMP 99-100'S. DR MCKEON/FAMILY CHANGE CODE STATUS BACK TO FULL CODE. TOLERATING SITTING UP IN CHAIR. RESPIRATORY THERAPY CHANGE PATIENT OVER TO TRACH COLLAR WITH 90% FIO2, SATS 92-94%. CONTINUE TO MONITOR AND TX PRN.
--- NOTE | 2021-06-30 18:39 | NUR ---
SHIFT SUMMARY PATIENTS MENTATION CLEARER TODAY FROM YESTERDAY. ABLE TO FOLLOW COMMANS BUT GENERALIZED WEAKNESS. RIGHT PUPIL SLIGHTLY > LEFT BUT REACTIVE TO LIGHT. HAS BEEN ON PRESSURE SUPPORT SETTINGS 8/PEEP 8/FIO2 50% WITH SATS >92%. HAD A TRACH COLLAR TRIAL THIS AFTERNOON FROM 1330 TO 1545ISH WITH SATS >90%. DID HAVE LOTS MORE TRACH SECRETIONS, THICK MCINTYRE, VERY GOOD PRODUCTIVE COUGHING. UP TO CHAIR TODAY AND WAS ABLE TO SEE FAMILY FROM [place] AND THEM TALKING TO HIM VIA PHONE. PATIENT MUTTERS LIPS TRYING TO TALK BUT RE-EDUCATED THAT NOT ABLE TO UNDERSTAND. PROPOFOL AND PRECEDEX GTT'S OFF T/O DAY. CONTINUES TO HAVE TUBE FEEDINGS AT GOAL RATE; TOLERATING WELL. NO BOWEL MOVEMENT, BUT FLATUS NOTED. LOW GRADE TEMP 100'S, TYLENOL GIVEN FOR TREATMENT. NO OTHER CHANGES, WILL REPORT OFF TO NOC SHIFT.
--- NOTE | 2021-06-30 23:43 | NUR ---
PATIENT AWAKE APPEARS TO BE WATCHING TV. FOLLOWING SIMPLE DIRECTIONS GENERALIZED WEAKNESS MOVING LEFT ARM BETTER THAN RIGHT. NODDING YES AND NO TO SIMPLE QUESTIONS, DIFFICULT TO ASSES HOW MUCH HE IS ACTUALLY UNDERSTANDS. TRACH IN PLACE MIDLINE WITH VENT SPONT 8/8 FIO2 50% SUCTIONING THICK YELLOW SPUTUM. RESP 25-30. FEVER 101 TYLENOL GIVEN PER DOBBHOFF. DOBBHOFF TO LEFT NARE TAPE REINFORCED.
[2021-07-01 04:49] LABS: BASOPHILS ABSOLUTE AUTO 0.05 K/mm3 (0.00-0.23); BASOPHILS PERCENT AUTO 0 % (0-2); EOSINOPHILS ABSOLUTE AUTO 0.09 K/mm3 (0.00-0.68); EOSINOPHILS PERCENT AUTO 1 % (0-6); Hematocrit 31.7 % (37.0-53.0); Hemoglobin 10.2 g/dL (13.5-17.5); IMMATURE GRAN ABSOLUTE AUTO 0.91 K/mm3 (0.00-0.10); IMMATURE GRAN PERCENT AUTO 7 % (0-1); LYMPHOCYTES ABSOLUTE AUTO 1.46 K/mm3 (0.84-5.20); LYMPHOCYTES PERCENT AUTO 11 % (21-46); MONOCYTES ABSOLUTE AUTO 1.06 K/mm3 (0.16-1.47); MONOCYTES PERCENT AUTO 8 % (4-13); Mean Corpuscular HGB 30.5 pg (26.0-34.0); Mean Corpuscular HGB Conc 32.2 g/dL (31.5-36.5); Mean Corpuscular Volume 95 fL (80-100); Mean Platelet Volume 11.6 fL (9.1-12.4); NEUTROPHILS ABSOLUTE AUTO 9.58 K/mm3 (1.96-9.15); NEUTROPHILS PERCENT AUTO 73 % (41-73); NRBC ABSOLUTE 0.04 K/mm3 (0.00-0.02); NRBC Auto 0.3 /100 WBC (0.0-0.2); Platelet Count 341 K/mm3 (150-400); RDW Coefficient Variation 14.7 % (11.7-14.2); RDW Standard Deviation 50.5 fL (35.1-46.3); Red Blood Cell Count 3.34 M/mm3 (4.30-5.90); White Blood Cell Count 13.15 K/mm3 (4.00-11.30)
[2021-07-01 05:18] LABS: Anion Gap 4 mmol/L (6-16); Blood Urea Nitrogen 36 mg/dL (8-24); Bun/Creatinine Ratio 40.5 (12.0-20.0); CO2, Blood 33 mmol/L (21-32); Calcium, Blood 8.4 mg/dL (8.5-10.1); Chloride, Blood 109 mmol/L (98-108); Creatinine, Blood 0.89 mg/dL (0.60-1.20); Glomerular Filtration Rate >60 (60-); Glucose, Blood 221 mg/dL (70-99); Magnesium, Blood 2.6 mg/dL (1.6-2.4); Phosphorus, Blood 1.6 mg/dL (2.5-4.9); Potassium, Blood 3.5 mmol/L (3.5-5.5); Sodium, Blood 146 mmol/L (136-145)
--- NOTE | 2021-07-01 07:35 | NUR ---
SUMMARY PATIENT REMAINING RELAXED T/O NIGHT, BUT NOT SLEEPING, PATIENT GIVEN ATIVAN X1 TO HELP HIM SLEEP, PATIENT REMAINING AWAKE. TRACH MIDLINE WITH VENT SET AT SPONT 8/8 FIO2 50% OCCASIONALLY SUCTIONING THICK WHITE SPUTUM. PATIENT FOLLOWING SIMPLE DIRECTIONS AND NODING YES AND NO TO QUESTIONS. EXTREMELY WEAK, MOVING LEFT ARM MORE THAN RIGHT, ONLY MOVING LEGS SLIGHTLY.
[2021-07-01 11:52] LABS: Vancomycin, Trough 27.2 ug/mL (5.0-10.0)
--- NOTE | 2021-07-01 11:56 | NUR ---
LATE AM NOTE... PT IS AWAKE AND AROUSABLE ATTEMPTING TO MOUTH WORDS. PT IS SPONT MOVING L ARM AND KLICKING PILLOW TO GET ATTENTION. PT VS NOTED. ROYCE PATENT. DR MCDONALD INC TF FLUSH TO 200ML Q4 X 24 HRS, ORDER REPORTED TO ROSEMARIE RN. FAMILY IN ROOM AND TALKING VIA PHONE TO PT. PT SEEMED TO BE UNDERSTANDING. 1145 REPORT TO ROSEMARIE AND 1210 PT TRANSFERED TO PCU-7 VIA BED. VANCO. TROUGH ELEVATED AND REPORTED TO DR MCDONALD.
--- NOTE | 2021-07-01 18:31 | NUR ---
TRANSFER TO U-07 / SHIFT SUMMARY: REPORT RECEIVED FROM JASON Yan RN. PT ARRIVED TO U- AT APPROX 1220. ON ARRIVAL, THE PT IS AWAKE, ABLE TO ANSWER SIMPLE YES/ NO QUESTIONS BY NODDING HEAD OR SQUEEZING HANDS. PT ON VENTILATOR W/ TRACH, SETTINGS: SPONT W/ PS 8, PEEP 8 & 50% FIO2. O2 SATS > 92% ON AVG, DESATS TO 87% WHILE COUGHING. MONITOR SHOWS SR W/ HR 70s, BP STABLE. DOBHOFF IN PLACE TO L NARE W/ TUBE FEEDS INFUSING AT GOAL RATE OF 60 ML/HR W/ 200 ML H2O FLUSH Q4H. TEMP CRANE PATENT/ DRAINING W/ LARGE AMNT OUTPUT THIS SHIFT - SEE I&O. SKIN CONDITION OVERALL FRAGILE. NO ACUTE CHANGES SINCE PT ARRIVAL TO U-07. HE REMAINS ICU STATUS ON THE VENT, SETTINGS UNCHANGED. FIO2 TITRATED UP TO 60% FOR DESATS TO 84% WHEN NEEDING TRACH SUCTIONED, NOW BACK TO 50%. MOD AMNTS PURULENT DRAINAGE FROM TRACH SITE IS UNCHANGED PER REPORT, ABX PER EMAR. SKIN OVERALL FRAGILE, Q2H REPOSITIONING TO MAINTAIN SKIN INTEGRITY. WILL CONTINUE TO MONITOR & REPORT OFF TO ONCOMING RN.
[2021-07-02 03:45] LABS: BASOPHILS ABSOLUTE AUTO 0.07 K/mm3 (0.00-0.23); BASOPHILS PERCENT AUTO 1 % (0-2); EOSINOPHILS ABSOLUTE AUTO 0.14 K/mm3 (0.00-0.68); EOSINOPHILS PERCENT AUTO 1 % (0-6); Hematocrit 33.1 % (37.0-53.0); Hemoglobin 10.3 g/dL (13.5-17.5); IMMATURE GRAN ABSOLUTE AUTO 0.94 K/mm3 (0.00-0.10); IMMATURE GRAN PERCENT AUTO 7 % (0-1); LYMPHOCYTES ABSOLUTE AUTO 1.35 K/mm3 (0.84-5.20); LYMPHOCYTES PERCENT AUTO 9 % (21-46); MONOCYTES ABSOLUTE AUTO 1.15 K/mm3 (0.16-1.47); MONOCYTES PERCENT AUTO 8 % (4-13); Mean Corpuscular HGB Conc 31.1 g/dL (31.5-36.5); Mean Corpuscular Volume 97 fL (80-100); Mean Platelet Volume 10.9 fL (9.1-12.4); NEUTROPHILS ABSOLUTE AUTO 10.72 K/mm3 (1.96-9.15); NEUTROPHILS PERCENT AUTO 75 % (41-73); NRBC ABSOLUTE 0.03 K/mm3 (0.00-0.02); NRBC Auto 0.2 /100 WBC (0.0-0.2); Platelet Count 463 K/mm3 (150-400); RDW Coefficient Variation 15.4 % (11.7-14.2); RDW Standard Deviation 53.9 fL (35.1-46.3); Red Blood Cell Count 3.43 M/mm3 (4.30-5.90); White Blood Cell Count 14.37 K/mm3 (4.00-11.30)
[2021-07-02 04:06] LABS: BAND PERCENT MAN 2 % (0-8); BASOPHILS PERCENT MAN 0 % (0-2); EOSINOPHILS ABSOLUTE MAN 0.14 K/mm3 (0.00-0.68); EOSINOPHILS PERCENT MAN 1 % (0-6); LYMPHOCYTES PERCENT MAN 7 % (21-46); METAMYELOCYTE ABSOLUTE MAN 0.14 K/mm3 (0.00-0.00); METAMYELOCYTE PERCENT MAN 1 % (0-0); MONOCYTES PERCENT MAN 7 % (4-13); MYELOCYTE ABSOLUTE MAN 0.14 K/mm3 (0.00-0.00); MYELOCYTE PERCENT MAN 1 % (0-0); NEUTROPHILS ABSOLUTE MAN 11.92 K/mm3 (1.96-9.15); SEG NEUTROPHILS PERCENT MAN 81 % (41-73); TOTAL CELLS COUNTED 100
[2021-07-02 04:07] LABS: Alanine Aminotransfer (ALT/SGP 260 U/L (12-78); Albumin/Globulin Ratio 0.4 (0.8-1.8); Alk Phos 122 U/L (50-136); Anion Gap 2 mmol/L (6-16); Aspartate Aminotrans (AST/SGOT 59 U/L (12-37); Bilirubin, Total 0.6 mg/dL (0.1-1.0); Blood Urea Nitrogen 40 mg/dL (8-24); Bun/Creatinine Ratio 47.8 (12.0-20.0); CO2, Blood 33 mmol/L (21-32); Calcium, Blood 8.6 mg/dL (8.5-10.1); Chloride, Blood 108 mmol/L (98-108); Creatinine, Blood 0.84 mg/dL (0.60-1.20); Globulin, Blood 5.2 g/dL (2.2-4.0); Glomerular Filtration Rate >60 (60-); Glucose, Blood 293 mg/dL (70-99); Potassium, Blood 4.3 mmol/L (3.5-5.5); Sodium, Blood 143 mmol/L (136-145); Total Protein, Blood 7.2 g/dL (6.4-8.2)
[2021-07-02 05:21] LABS: PCO2 Arterial 45.5 mmHg (35-45); pH Blood Arterial 7.47 (7.35-7.45)
--- NOTE | 2021-07-02 06:17 | NUR ---
SHIFT SUMMARY PT ICU STATUS. ALERT, NONVERBAL, ABLE TO ANSWER SOME SIMPLE Y/N Q's BY NODDING /SHAKING HEAD Y/N OR SQUEEZING HANDS. PT W/ SOME DIFFICULTY NODDING/SHAKING HEAD AT TIMES. PT VSS. MONITOR SHOWING SR, HR 80's-90's. SPO2 > 90% ON VENT VIA TRACH W/ SETTINGS: SPONTANEOUS 8/8, FIO2 50%. LUNG SOUNDS COARSE T/O. THICK MCINTYRE SECRETIONS BEING SUCTIONED ORALLY & VIA IN-LINE TRACH SUCTIONING. PT W/ DOBHOFF TO L NOSTRIL W/ TF INFUSING PER ORDERS @ GOAL RATE. Q4H CBG MONITORING W/ ELEVATED RESULTS, TRENDING DOWN W/ INSULIN PER EMAR. TEMP CRANE CATH, PATENT & DRAINING DARK YELLOW URINE. PT REQUIRING 2 PERSON MAX ASSIST FOR REPOSITIONING IN BED. PT EXTREMELY WEAK, BARELY ABLE TO WIGGLE TOES OR MOVE EXTREMITIES.
--- NOTE | 2021-07-02 08:30 | NUR ---
ASSUMED CARE / UPDATE: REPORT RECEIVED FROM GIOVANNY Senior RN. ASSUMED CARE OF THIS PT AT APPROX 0700. ON ASSESSMENT, THE PT IS AWAKE, ALERT TO SELF & FOLLOWING COMMANDS. HE IS ATTEMPTING TO SPEAK USING PASSYMUIR VALVE BUT IS DIFFICULT TO UNDERSTAND R/T HUSHED TONES & OVERALL DECONDITIONING. LS ARE DIM T/O, PT ON HEATED AEROSOLIZED TRACH COLLAR W/ 60% FIO2. O2 SATS > 90% ON AVG, DESATS TO 86% W/ COUGHING OR SPUTUM EXPECTORATION. MONITOR SHOWS SR W/ HR 80s, BP STABLE. DOBHOFF IN PLACE TO L NARE W/ TUBE FEEDS OF PIVOT INFUSING AT GOAL RATE OF 60 ML/HR W/ 200 ML H2O FLUSH Q4H. BOWEL CARE PER EMAR. TEMP CRANE PATENT/ DRAINING DARK YELLOW URINE, DIURESIS PER EMAR. SKIN CONDITION OVERALL FRAGILE, SCATTERED BRUISING T/O. Q2H REPOSITIONING TO MAINTAIN SKIN INTEGRITY. DANIELLA Boyle, RT, AT BEDSIDE APPROX 0745 THIS AM. PT HAS BEEN PLACED ON HEATED AEROSOLIZED TRACH COLLAR W/ 60% FIO2. INNER CANNULA ALSO CHANGED TO FENUSTRATED & PASSYMUIR VALVE PLACED W/ PT ATTEMPTING TO SPEAK. HE IS SOMEWHAT DIFFICULT TO UNDERSTAND R/T SPEAKING IN HUSHED TONES & OVERALL DECONDITIONING. THE PT IS TOLERATING THESE CHANGES WELL W/ O2 SATS > 90% ON AVG. OCCASIONAL DESATS TO 86% NOTED W/ COUGHING EPISODES OR WHEN NEEDING TRACH SUCTIONED. WILL CONTINUE TO MONITOR & UPDATE NEEDED.
--- NOTE | 2021-07-02 11:15 | NUR ---
DR MCDONALD: PROVIDER AT BEDSIDE TO EVAL PT THIS AM. SHE WOULD LIKE US TO MOBILIZE THE PT MUCH POSSIBLE. NO CHANGES AT THIS TIME.
--- NOTE | 2021-07-02 19:26 | NUR ---
SHIFT SUMMARY: NO ACUTE CHANGES SINCE PRIOR UPDATES. PT REMAINS A&O, PLEASANT & COOPERATIVE W/ CARE. HE CONTINUES TO IMPROVE IN COMMUNICATION. PT ON HUMIDIFIED TRACH COLLAR W/ 60% FIO2, O2 SATS > 92% ON AVG, DESATS TO 86% W/ COUGHING OR WHEN NEEDING TO BE SUCTIONED. MONITOR SHOWS SR W/ HR 80s, BP STABLE. TUBE FEED FORMULA CHANGED PER ORDERS AT APPROX 1600 THIS AFTERNOON, SET TO ALARM WHEN RATE CAN BE INCREASED. TEMP CRANE PATENT/ DRAINING YELLOW URINE, DIURESIS PER EMAR. SKIN CONDITION OVERALL INTACT, Q2H REPOSITIONING TO MAINTAIN SKIN INTEGRITY. WILL CONTINUE TO MONITOR & REPORT OFF TO ONCOMING RN.
[2021-07-03 04:36] LABS: Anion Gap 4 mmol/L (6-16); Blood Urea Nitrogen 40 mg/dL (8-24); CO2, Blood 31 mmol/L (21-32); Chloride, Blood 108 mmol/L (98-108); Creatinine, Blood 0.82 mg/dL (0.60-1.20); Glomerular Filtration Rate >60 (60-); Glucose, Blood 240 mg/dL (70-99); Potassium, Blood 4.4 mmol/L (3.5-5.5); Sodium, Blood 143 mmol/L (136-145)
[2021-07-03 04:39] LABS: Vancomycin, Trough 23.8 ug/mL (5.0-10.0)
--- NOTE | 2021-07-03 05:33 | NUR ---
SHIFT SUMMARY NO ACUTE CHANGES THIS SHIFT. AXO BUT FLAT. IN SR. PT ON VENT FOR SHORT PERIOD OF TIME WITH PEEP 8 41%. PT NOW ON TRACH COLLAR 50% AND TOLERATING WELL, ESPECIALLY ON R SIDE. LARGE MCINTYRE SPUTUM OUTPUT, REQUIRING DEEP SUCTIONING OFTEN. DOBHOFF INFUSING WITH TF @ GOAL RATE 60MLS/HR. CRANE PATENT AND DRAINING. Q4 CBG STABLE, REQUINRING INSULIN DOSING EACH TIME. OTHERWISE, PT BEING TURNED BY STAFF. PT MAKES NEEDS KNOIWN. REMAINS IN ISOLATION.
--- NOTE | 2021-07-03 09:45 | NUR ---
CARE ASSUMPTION PATIENT A/O X4. VSS. SPO2 >90% WITH TRACH COLAR AT 10L AND 40%. TELE SR 60-70S. PATIENT HAS FLAT AFFECT, AND RESPONDS WITH YES AND NO, OR COMMUNICATES BY MOUTHING HIS RESPONSE. THIS RN AND RT WENT IN TO SUCTION AND CHANGE THE INNER CANULA FOR THE TRACH. PATIENT TOLERATED THIS WELL. YELLOW TENATIOUS MUCOUS. CRANE CATH IN PLACE DRAINING WITH GRAVITY, CLEAR AND CHRISTIAN COLORATION. DOBHOFF RUNNING AT GOAL RATE 60 MLS/HR AND FLUSH Q4. PATIENT HAS REFUSED TO CHANGE POSITION STATING THAT HE IS COMFORTABLE. CALL LIGHT WITHIN REACH AND BED AT LOWEST POSITION. WILL CONTINUE TO MONITOR AND PROVIDE CARE.
--- NOTE | 2021-07-03 18:04 | NUR ---
SHIFT SUMMARY PATIENT ALERT AND ORIENTATED X4. PATIENT IS ABLE TO VERBALIZE USING THE PASSYMUIR ON THE TRACH, VOICE IS VERY SOFT. VSS. SPO2 >90% ON TRACH COLLAR AT 10L 40%. TELE SR 78. PATIENT REPORTS NO CHEST PAIN, SHORTNESS OF BREATH, OR PAIN. SPEECH EVAL DONE THIS AFTERNOON, AND PER SPEECH EVAL PATIENT IS ABLE TO HAVE PUREE DIET. PER ULTRASONOGRAPHER TUBE FEEDING TURNED DOWN TO 35MLS/HR. THIS RN ASSISTED THE PATIENT TO EAT DINNER, PATIENT TOLERATED MILDLY. PATIENT FIRST BITE BEGAN COUGHING AND GRIMMACED. PATIENT HAD ABOUT 4 BITES ALL TOGETHER, AND THEN DID WANT TO CONTINUE. PATIENT USING THE PASSYMUIR ASKED HOW THIS HAPPENED. THIS RN EXPLAINED HIS STAY AND WHAT THE DOBHOFF IS FOR, THE TRACH IS FOR, THE CATHETER, AND EXPLAINED THE CARE, TREATMENT, AND PLAN. PATIENT VERABLIZED THAT HE UNDERSTOOD. CRANE IS IN PLACE DRAINING WITH GRAVITY. CALL LIGHT WITHIN REACH AND BED IN LOWEST POSTION. HOB AT 90 DEGREE. NO ACUTE CHANGES. WILL CONTINUE TO MONITOR AND PROVIDE CARE UNTIL HAND OFF WITH NEXT SHIFT.
[2021-07-04 04:21] LABS: Base Excess Venous 8.1 mmol/L; Bicarbonate Venous 30.6 mmol/L (24.0-30.0); PCO2 Venous 42.8 mmHg (38-42); PO2 Venous 41.5 mmHg (38-42); pH Blood Venous 7.48 (7.34-7.37)
[2021-07-04 04:28] LABS: Hematocrit 35.4 % (37.0-53.0); Hemoglobin 11.2 g/dL (13.5-17.5); Mean Corpuscular HGB Conc 31.6 g/dL (31.5-36.5); Mean Corpuscular Volume 95 fL (80-100); NRBC ABSOLUTE 0.03 K/mm3 (0.00-0.02); NRBC Auto 0.2 /100 WBC (0.0-0.2); Platelet Count 572 K/mm3 (150-400); RDW Coefficient Variation 15.4 % (11.7-14.2); RDW Standard Deviation 52.4 fL (35.1-46.3); Red Blood Cell Count 3.73 M/mm3 (4.30-5.90); White Blood Cell Count 15.01 K/mm3 (4.00-11.30)
[2021-07-04 04:44] LABS: Anion Gap 5 mmol/L (6-16); Blood Urea Nitrogen 42 mg/dL (8-24); Bun/Creatinine Ratio 48.4 (12.0-20.0); CO2, Blood 30 mmol/L (21-32); Calcium, Blood 9.1 mg/dL (8.5-10.1); Chloride, Blood 108 mmol/L (98-108); Creatinine, Blood 0.87 mg/dL (0.60-1.20); Glomerular Filtration Rate >60 (60-); Glucose, Blood 193 mg/dL (70-99); Magnesium, Blood 2.4 mg/dL (1.6-2.4); Phosphorus, Blood 3.6 mg/dL (2.5-4.9); Potassium, Blood 4.1 mmol/L (3.5-5.5); Sodium, Blood 143 mmol/L (136-145)
--- NOTE | 2021-07-04 05:41 | NUR ---
SHIFT SUMMARY NO ACUTE CHANGES THIS SHIFT. VSS. AXO. HAS REMAINED ON TRACH COLLAR T/O SHIFT, TITRATED FROM 50 - 40%. SATS >90%. CONTINUES TO PUT OUT MCINTYRE SPUTUM, HAS DECREASED IN OUTPUT VS LAST SHIFT. DOBHOFF CONTINUING TO INFUSE AT GOAL RATE, NO ISSUES NOTED. PT TOLERATED SOME PO LIQUID INTAKE THIS SHIFT. CRANE PATENT AND DRAINING. 1 BM THIS SHIFT. TURNING TOLERATED. ORAL CARE Q4. REMAINS IN ISOLATION. UPDATED ON CONDITION.
[2021-07-04 06:37] LABS: BAND PERCENT MAN 6 % (0-8); BASOPHILS PERCENT MAN 2 % (0-2); EOSINOPHILS PERCENT MAN 2 % (0-6); LYMPHOCYTES ABSOLUTE MAN 3.15 K/mm3 (0.84-5.20); LYMPHOCYTES PERCENT MAN 21 % (21-46); MONOCYTES ABSOLUTE MAN 1.05 K/mm3 (0.16-1.47); MONOCYTES PERCENT MAN 7 % (4-13); MYELOCYTE ABSOLUTE MAN 0.15 K/mm3 (0.00-0.00); MYELOCYTE PERCENT MAN 1 % (0-0); NEUTROPHILS ABSOLUTE MAN 10.05 K/mm3 (1.96-9.15); SEG NEUTROPHILS PERCENT MAN 61 % (41-73); TOTAL CELLS COUNTED 100
--- NOTE | 2021-07-04 18:27 | NUR ---
SHIFT SUMMARY; ASSUMED CARE AT 0700. A/A/OX4. TRACH COLLAR IN PLACE WITH O2 AT 30L. REPOSITIONED Q2 THROUGHOUT SHIFT. Q4 TRACH SUCTIONING AND ORAL CARE. TRACH CARE COMPLETE DURING SHIFT. DIET ADVANCED TO MECH SOFT BY ST. TOLERATING SMALL AMOUNTS. TUBE FEEDING TO DOBHOFF AT 35ML/HR PER ORDERS WITH 100ML FLUSHES. BED BATH COMPLETE TODAY WITH LINEN CHANGE. NO ACUTE MEDICAL CHANGES, WILL CONTINUE TO MONITOR AND TREAT UNTIL CHANGE OF SHIFT.
--- NOTE | 2021-07-04 22:11 | NUR ---
UPDATED TRES ON PATIENT'S CONDITION
[2021-07-05 05:59] LABS: Base Excess Venous 5.9 mmol/L; PCO2 Venous 39.7 mmHg (38-42); PO2 Venous 48.3 mmHg (38-42); pH Blood Venous 7.48 (7.34-7.37)
[2021-07-05 06:05] LABS: Mean Corpuscular HGB 30.5 pg (26.0-34.0); Mean Corpuscular HGB Conc 32.4 g/dL (31.5-36.5); Mean Corpuscular Volume 94 fL (80-100); Mean Platelet Volume 11.2 fL (9.1-12.4); NRBC ABSOLUTE 0.03 K/mm3 (0.00-0.02); NRBC Auto 0.2 /100 WBC (0.0-0.2); Platelet Count 508 K/mm3 (150-400); RDW Standard Deviation 51.2 fL (35.1-46.3); Red Blood Cell Count 3.93 M/mm3 (4.30-5.90); White Blood Cell Count 17.54 K/mm3 (4.00-11.30)
--- NOTE | 2021-07-05 06:19 | NUR ---
SHIFT SUMMARY NO ACUTE CHANGES THIS SHIFT. VSS. AXO. REMAINS ON TRACH COLLAR 35%. SPO2 >94%. TRACH SPUTUM OUTPUT HAS LESSENED SIGNIFICANTLY VS LAST NIGHT. COLOR HAS LIGHTENDED TO LIGHT MCINTYRE BUT SOME RED COLOR NOTED. EXTENSIVE TRACH CARE OFFERED. DOBHOFF DRESSING CHANGED, INFUSING AT GOAL RATE. PT TOLERATING PO FLUIDS WELL. CRANE PATENT AND DRAINING. ORAL CARE Q4. CBG Q4. TURNING TOLERATED. PRESSURE INJURY TO R CHEEK HEALING WELL. OTHERWISE, PT RESTING IN ROOM OFF AND ON.
[2021-07-05 06:24] LABS: Alanine Aminotransfer (ALT/SGP 283 U/L (12-78); Albumin, Blood 2.2 g/dL (3.4-5.0); Albumin/Globulin Ratio 0.4 (0.8-1.8); Alk Phos 122 U/L (50-136); Anion Gap 5 mmol/L (6-16); Aspartate Aminotrans (AST/SGOT 58 U/L (12-37); Bilirubin, Direct 0.2 mg/dL (0.0-0.3); Bilirubin, Indirect 0.4 mg/dL (0.1-0.7); Bilirubin, Total 0.6 mg/dL (0.1-1.0); Blood Urea Nitrogen 44 mg/dL (8-24); Bun/Creatinine Ratio 50.1 (12.0-20.0); CO2, Blood 28 mmol/L (21-32); Calcium, Blood 9.3 mg/dL (8.5-10.1); Chloride, Blood 107 mmol/L (98-108); Creatinine, Blood 0.88 mg/dL (0.60-1.20); Globulin, Blood 5.4 g/dL (2.2-4.0); Glomerular Filtration Rate >60 (60-); Glucose, Blood 174 mg/dL (70-99); Magnesium, Blood 2.3 mg/dL (1.6-2.4); Phosphorus, Blood 3.4 mg/dL (2.5-4.9); Potassium, Blood 5.2 mmol/L (3.5-5.5); Sodium, Blood 140 mmol/L (136-145); Total Protein, Blood 7.6 g/dL (6.4-8.2)
[2021-07-05 07:00] LABS: BASOPHILS PERCENT MAN 0 % (0-2); EOSINOPHILS ABSOLUTE MAN 0.87 K/mm3 (0.00-0.68); EOSINOPHILS PERCENT MAN 5 % (0-6); LYMPHOCYTES PERCENT MAN 8 % (21-46); MONOCYTES ABSOLUTE MAN 0.35 K/mm3 (0.16-1.47); MONOCYTES PERCENT MAN 2 % (4-13); MYELOCYTE ABSOLUTE MAN 0.17 K/mm3 (0.00-0.00); MYELOCYTE PERCENT MAN 1 % (0-0); NEUTROPHILS ABSOLUTE MAN 14.73 K/mm3 (1.96-9.15); SEG NEUTROPHILS PERCENT MAN 84 % (41-73); TOTAL CELLS COUNTED 100
[2021-07-05 12:06] LABS: Vancomycin, Trough 13.8 ug/mL (5.0-10.0)
--- NOTE | 2021-07-05 18:14 | NUR ---
SHIFT SUMMARY; ASSUMED CARE AT 0700. A/A/OX3. TRACH COLLAR IN PLACE WITH 02 AT 30. TRACH CARE COMPLETE TODAY. Q2 TURNING, TRACH SUCTIONING NEEDED. VSS, APPEARS IN GOOD SPIRITS TODAY. NO ACUTE MEDICAL CHANGES, WILL CONTINUE TO MONITOR AND TREAT UNTIL CHANGE OF SHIFT.
--- NOTE | 2021-07-06 06:12 | NUR ---
SHIFT SUMMARY PATIENT FOUND TO BE A PLESANT MAN WHO IS A&OX4, FOLLOWING COMAMNDS WITH GENERALIZED WEAKNESS. TRACH IN PLACE SO USING SPEAKING VALVE OR NODS TO COMMUNICATE. NO PAIN OR DISTRESS NOTED UPON ASSESSMENT. TRACH CARE PERFORMED Q4H AND PRN SUCTIONING. PRODUCTIVE COUGH. TRACH COLLAR WITH 30% FIO2 WITH 11L BLEED IN SATING HIGH 90'S ALL SHIFT. VSS. SR ON THE MONITOR. TOLERATING MECH SOFT DIET WITH MEDS IN APPLESAUCE. TF CONTINUE AT 35ML/HR. INCONTINENT OF STOOL. CRANE DRAINING CLEAR YELLOW URINE TO GRAVITY. Q2H TURNS IN PLACE. NO ACUTE CONCERNS AT THIS TIME. WILL CONTINUE TO MONITOR UNTIL REPORT GIVEN TO DAYSHIFT RN.
--- NOTE | 2021-07-06 07:30 | NUR ---
ASSUMED CARE: PT WITH TRACH COLLAR IN PLACE, SATTING LOW 90S ON THIS. NSR ON TELE, DOBHOFF IN PLACE. DENIES NEEDS OR CONCERNS AT THIS TIME.
--- NOTE | 2021-07-06 10:24 | NUR ---
REPORT GIVEN TO TIANA WEBSTER. NO ACUTE NEEDS OR CONCERNS AT THIS TIME
--- NOTE | 2021-07-06 16:38 | NUR ---
TRACH: PT HAS BEEN EXPERIENCING BLEEDING AROUND TRACH. SUTURES APPEAR TO BE INTACT. PT ALSO COUGHING UP VIRGIE RED BLOOD WITH CLOTS THROUGH TRACH. DR DAVEY NOTIFIED AND CAME TO SEE PATIENT. PT CLEANED AND GAUZE PLACED AROUND TRACH. WILL AWAIT NEW ORDERS.
--- NOTE | 2021-07-06 17:17 | NUR ---
THERAPY: THERAPY IN ROOM TO WORK WITH PATIENT. PT ABLE TO DO BED EXERCISES.
--- NOTE | 2021-07-06 18:16 | NUR ---
PT SATS REMAIN STABLE ON 30% BLOWBY. PT CONTINUES TO HAVE BLEEDING AROUND TRACH ALONG WITH COUGHING UP BLOOD CLOTS. LOVENOX ORDERS CHANGED. SPEECH ADVANCED PT TO PUREE DIET. PT ONLY TAKES SIPS AND BITES. BLOOD SUGARS STABLE <300. DENIES PAIN WITH SWALLOWING. CONT TUBE FEEDING VIA DOBHOFF AT 35/HR. ORAL CARE DONE Q4HR. PT TURNING WITH MAX ASSIST. WORKED WITH THERAPY TO DO BED EXERCISES. LABS TO BE REPEAT IN AM. AWAITING PLACEMENT AT DISCHARGE.
[2021-07-07 05:41] LABS: BASOPHILS ABSOLUTE AUTO 0.09 K/mm3 (0.00-0.23); BASOPHILS PERCENT AUTO 0 % (0-2); EOSINOPHILS ABSOLUTE AUTO 0.36 K/mm3 (0.00-0.68); EOSINOPHILS PERCENT AUTO 1 % (0-6); Hematocrit 33.9 % (37.0-53.0); Hemoglobin 11.4 g/dL (13.5-17.5); IMMATURE GRAN ABSOLUTE AUTO 1.32 K/mm3 (0.00-0.10); IMMATURE GRAN PERCENT AUTO 5 % (0-1); LYMPHOCYTES ABSOLUTE AUTO 1.72 K/mm3 (0.84-5.20); LYMPHOCYTES PERCENT AUTO 7 % (21-46); MONOCYTES ABSOLUTE AUTO 1.12 K/mm3 (0.16-1.47); MONOCYTES PERCENT AUTO 5 % (4-13); Mean Corpuscular HGB 30.5 pg (26.0-34.0); Mean Corpuscular HGB Conc 33.6 g/dL (31.5-36.5); Mean Corpuscular Volume 91 fL (80-100); Mean Platelet Volume 11.3 fL (9.1-12.4); NEUTROPHILS ABSOLUTE AUTO 20.53 K/mm3 (1.96-9.15); NEUTROPHILS PERCENT AUTO 82 % (41-73); Platelet Count 493 K/mm3 (150-400); RDW Coefficient Variation 14.3 % (11.7-14.2); RDW Standard Deviation 46.7 fL (35.1-46.3); Red Blood Cell Count 3.74 M/mm3 (4.30-5.90); White Blood Cell Count 25.14 K/mm3 (4.00-11.30)
[2021-07-07 06:03] LABS: Alanine Aminotransfer (ALT/SGP 194 U/L (12-78); Albumin, Blood 2.3 g/dL (3.4-5.0); Albumin/Globulin Ratio 0.5 (0.8-1.8); Alk Phos 97 U/L (50-136); Anion Gap 7 mmol/L (6-16); Aspartate Aminotrans (AST/SGOT 32 U/L (12-37); Bilirubin, Total 0.6 mg/dL (0.1-1.0); Blood Urea Nitrogen 37 mg/dL (8-24); Bun/Creatinine Ratio 47.3 (12.0-20.0); CO2, Blood 25 mmol/L (21-32); Calcium, Blood 9.2 mg/dL (8.5-10.1); Chloride, Blood 100 mmol/L (98-108); Creatinine, Blood 0.78 mg/dL (0.60-1.20); Globulin, Blood 4.8 g/dL (2.2-4.0); Glomerular Filtration Rate >60 (60-); Glucose, Blood 94 mg/dL (70-99); Potassium, Blood 4.3 mmol/L (3.5-5.5); Sodium, Blood 132 mmol/L (136-145); Total Protein, Blood 7.1 g/dL (6.4-8.2)
--- NOTE | 2021-07-07 06:28 | NUR ---
SHIFT SUMMARY PATIENT FOUND TO BE A PLESANT MAN WHO COMMUNICATES WITH NODS, MOUTHING WORDS AND THE PASSY GUS VALVE ON TRACH. A&OX4. GEN WEAKNESS. MOVES UPPER EXTREMETIES DECENTLY WELL BUT WEAKER LOWER EXTREMETIES. SOME PAIN TO THROAT TREATED WITH PRN FENT WITH GOOD RELIEF. VSS. SR ON THE MONITOR.TRACH COLLAR WITH 30%FIO2 AND 10L BLEED IN SATING MID 90'S. COPIOUS BLOOD TINGED SPUTUM FROM TRACH WITH COUGHING FITS. CLEANING FRQUENTLY. SOME VIRGIE RED BLOOD CLOTS NOTED WELL. RT STATES FROM TRAUMATIC SUCTIONING SO DOING THIS SPARINGLY POSSIBLE AND ENCOURGAING PATIENT TO CLEAR SECRETIONS ON OWN. GOOD COUGH. TOLERATING PUREED DIET. DOBHOFF FOUND TO BE PULLED QUITE A BIT THIS AM AND WAS UNABLE TO SAVE IT SO NG PULLED @0600. TF ON STANDBY UNTIL NEW ONE CAN BE PLACED OR OTHER FORM OF NUTRITION UTILIZED. Q2H TURNS AND ORAL CARE. CRANE DRAINING WELL TO GRAVITY.
[2021-07-07 14:54] LABS: Vancomycin, Trough 12.7 ug/mL (5.0-10.0)
--- NOTE | 2021-07-07 20:01 | NUR ---
END OF SHIFT SUMMARY: PATIENT DENIED PAIN OR DISCOMFORT THROUGHOUT THE SHIFT. PATIENT ALERT. DIFFICULT TO FULLY DETERMINE ORIENTATION. PATIENT RESPONDING APPROPRIATELY TO QUESTIONS. PATIENT ABLE TO LOOK AT COMMUNICATION BOARD AND LET RN KNOW IF IT HAS HIS QUESTION OR NOT. PATIENT LAUGHING AND SMILING WITH THE RN. PATIENT SPO2 WAS 91-96 THROUGHOUT THE DAY. PATIENT DENIED SOB OR DIFFICULTY BREATHING. BREATHS APPEAR CALM AND EVEN. PATIENT MAINTAINED SATURATIONS WITH EATING PUREE DIET. PATIENT ABLE TO SWALLOW WITHOUT POCKETING OF FOOD. PATIENT CONTINUES TO HAVE BRIGHT RED SPUTUM THAT COMES FROM THE TRACH OCCASSIONALY (MORE COMMON WITH COUGHING). NO VIRGIE BLOOD NOTED LEAKING FROM THE TRACH. PATIENT REPORTED THAT HE DID NOT WANT A DOBHOFF REPLACED. NOTIFIED DR. DAVEY. PATIENT IS ABLE TO COUGH ON COMMAND AND COUGH NEEDED. PATIENT WORKED WITH PT TODAY. WHEN PROMPTED, PATIENT WORKS TO BE INVOLVED IN ACTIVITY. PATIENT CONTINUES TO BE STIFF IN HIS SHOULDERS AND LEGS. UPDATED TRES ON THE PATIENT'S DAY. SHE IS APPRECIATIVE OF THE CARE.
--- NOTE | 2021-07-08 06:20 | NUR ---
SHIFT SUMMARY PT. ALERT, CALM, AND COOPERATIVE. IS ABLE TO LET STAFF KNOW WHEN NEEDS ASSISTANCE. PT. HAS A SPEAKING VALVE BUT HARD TO UNDERSTAND PT. DOES NOD HEAD FOR YES OR NO QUESTIONS. ABLE TO COMMUNICATE WITH THE COMMUNICATION BOARD AT BEDSIDE. PT. MAINTAINS 02 STATS ABOVE 90%. HAS A TRACH AND BLOWBY AIR 30%. TOLERATING PO PUREE DIET. HAD AND EPISODE OF BOWEL INCONT. CRANE IN PLACE; YELLOW URINE. COPIOUS BLOOD TINGED SPUTUM FROM TRACH. ENCOURAGING PT. TO CLEAR SECREATIONS ON WON. Q2H TURNS, ORAL AND SULEIMAN CARE. WILL CONT. TO MONITOR PT. TILL SHIFT CHANGE. PT. STABLE AT BEDSIDE.
--- NOTE | 2021-07-08 09:00 | NUR ---
rt in room doing trach care, apparently there was a lot of blood clots in the trach, pt awake, a/ox3, communication is hard. lungs are dim t/o, resp even and unlabored, no cough noted, hrr, tele in place running sr per monitor, see strip, no edema noted, ppp+1 cap refill <3sec, vs stable, afebrile, iv is picc line to michael, site is clear and patent, but doesn't draw, btx4, abd flat soft nontender, voids via cabrera cath draining clear yellow urine, skin c/w/d, coccyx is pink, will turn q2, very weak, lisandro, call light in reach.
[2021-07-08 10:39] LABS: Alanine Aminotransfer (ALT/SGP 147 U/L (12-78); Albumin, Blood 2.2 g/dL (3.4-5.0); Albumin/Globulin Ratio 0.5 (0.8-1.8); Alk Phos 92 U/L (50-136); Anion Gap 9 mmol/L (6-16); Aspartate Aminotrans (AST/SGOT 28 U/L (12-37); Bilirubin, Total 0.5 mg/dL (0.1-1.0); Blood Urea Nitrogen 37 mg/dL (8-24); Bun/Creatinine Ratio 44.1 (12.0-20.0); CO2, Blood 23 mmol/L (21-32); Calcium, Blood 8.7 mg/dL (8.5-10.1); Chloride, Blood 102 mmol/L (98-108); Creatinine, Blood 0.84 mg/dL (0.60-1.20); Globulin, Blood 4.5 g/dL (2.2-4.0); Glomerular Filtration Rate >60 (60-); Glucose, Blood 201 mg/dL (70-99); Potassium, Blood 4.1 mmol/L (3.5-5.5); Sodium, Blood 134 mmol/L (136-145); Total Protein, Blood 6.7 g/dL (6.4-8.2)
--- NOTE | 2021-07-08 11:00 | NUR ---
ASSUMPTION OF CARE: RECIEVED REPORT FROM ADALBERTO Pruitt RN, ASSUMED CARE OF PATIENT AT THIS TIME
[2021-07-08 13:58] LABS: Hematocrit 32.5 % (37.0-53.0); Mean Corpuscular HGB 30.3 pg (26.0-34.0); Mean Corpuscular HGB Conc 33.8 g/dL (31.5-36.5); Mean Corpuscular Volume 90 fL (80-100); RDW Coefficient Variation 14.3 % (11.7-14.2); RDW Standard Deviation 46.5 fL (35.1-46.3); Red Blood Cell Count 3.63 M/mm3 (4.30-5.90); White Blood Cell Count 22.47 K/mm3 (4.00-11.30)
[2021-07-08 13:59] LABS: Platelet Count 406 K/mm3 (150-400)
[2021-07-08 14:09] LABS: BAND PERCENT MAN 1 % (0-8); BASOPHILS PERCENT MAN 0 % (0-2); EOSINOPHILS ABSOLUTE MAN 0.22 K/mm3 (0.00-0.68); EOSINOPHILS PERCENT MAN 1 % (0-6); LYMPHOCYTES ABSOLUTE MAN 1.34 K/mm3 (0.84-5.20); LYMPHOCYTES PERCENT MAN 6 % (21-46); METAMYELOCYTE ABSOLUTE MAN 0.67 K/mm3 (0.00-0.00); METAMYELOCYTE PERCENT MAN 3 % (0-0); MONOCYTES PERCENT MAN 0 % (4-13); NEUTROPHILS ABSOLUTE MAN 20.22 K/mm3 (1.96-9.15); SEG NEUTROPHILS PERCENT MAN 89 % (41-73); TOTAL CELLS COUNTED 100
--- NOTE | 2021-07-08 18:13 | NUR ---
END OF SHIFT SUMMARY: PATIENT IS STILL HAVING DIFFICULTIES WITH MOVEMENT, HOWEVER IS WILLING TO TRY MOVEMENTS AND ANSWER QUESTIONS. PATIENT RESPONDS WELL TO YES AND NO QUESTIONS, USES THE SPEECH CHART WITH SOME QUESTIONS. PATIENT IS STILL HAVING LARGE AMOUNTS OF HEMOPTYSIS WITH SUCTIONING OF TRACHEA. PATIENTS FAMILY IS WANTING TO FACETIMING TRES [phone], TRES IS ALSO WANTING TO SPEAK TO PROVIDER. WILL ENSURE NIGHT NURSE IS AWARE, NO CHANGES IN RESPIRATORY IS USING HUMIDIFIED BLOW BY AND WAS SATURATING GREATER THAN 92 SP02, APPETITE HAS INCREASED WITH EACH MEAL WAS ABLE TO TOLERATE PILLS WITH APPLESAUCE. PIC LINE IS NOW DRAWING. PATIENT WORKED WELL WITH PHYSICAL THERAPY SATURATION WAS BETTER AFTER WORKING WITH THEM. PATIENT IS ALERT AND ORIENTED. DENIES CP
--- NOTE | 2021-07-08 21:45 | NUR ---
SPEAKING VALVE APPLIED, PATIENT TOLERATED FOR A FEW MINUTES THEN SPO2 DECREASED TO MID 80'S. SPEAKING VALVE REMOVED.
--- NOTE | 2021-07-08 22:50 | NUR ---
TIANA COLE WENT INTO PATIENT'S ROOM AND FOUND PATIENT'S INNER CANNULA IN THE BED. PATIENT STATES THAT HE COUGHED AND THE INNER CANNULA CAME OUT. SPO2 IN THE 90'S. CALLED ANABEL RESPIRATORY THERAPIST. CLEANED AROUND TRACH AND REPLACED COLLAR. ANABEL REPLACED INNER CANNULA. PATIENT TOLERATED WELL.
--- NOTE | 2021-07-09 01:09 | NUR ---
PT WAS ON Q4 CBG CHECKS. PT NOW ON PUREE DIET. PROVIDER CONSULTED AND PT CHANGED TO AC/HC INSULING DOSING AND CBG CHECKS. PT BLEEDING THROUGH TRACH WHEN HE COUGHS. LAST DOSE OF LOVENOX WITHELD DUE TO BLEEDING. PROVIDER CONSULTED, LOVENOX DOSE PREVIOUSLY ADJUSTED FROM 80MG TO 40MG AND OKAY TO CONTINUE TO GIVE LOVENOX.
[2021-07-09 05:02] LABS: Hematocrit 30.3 % (37.0-53.0); Hemoglobin 10.2 g/dL (13.5-17.5); Mean Corpuscular HGB 30.6 pg (26.0-34.0); Mean Corpuscular HGB Conc 33.7 g/dL (31.5-36.5); Mean Corpuscular Volume 91 fL (80-100); Mean Platelet Volume 12.1 fL (9.1-12.4); Platelet Count 394 K/mm3 (150-400); RDW Coefficient Variation 14.5 % (11.7-14.2); RDW Standard Deviation 47.5 fL (35.1-46.3); Red Blood Cell Count 3.33 M/mm3 (4.30-5.90); White Blood Cell Count 19.07 K/mm3 (4.00-11.30)
[2021-07-09 05:24] LABS: Alanine Aminotransfer (ALT/SGP 128 U/L (12-78); Albumin, Blood 2.2 g/dL (3.4-5.0); Albumin/Globulin Ratio 0.5 (0.8-1.8); Alk Phos 83 U/L (50-136); Anion Gap 5 mmol/L (6-16); Aspartate Aminotrans (AST/SGOT 24 U/L (12-37); Bilirubin, Total 0.5 mg/dL (0.1-1.0); Blood Urea Nitrogen 33 mg/dL (8-24); Bun/Creatinine Ratio 41.4 (12.0-20.0); CO2, Blood 26 mmol/L (21-32); Calcium, Blood 8.3 mg/dL (8.5-10.1); Chloride, Blood 100 mmol/L (98-108); Globulin, Blood 4.2 g/dL (2.2-4.0); Glomerular Filtration Rate >60 (60-); Glucose, Blood 173 mg/dL (70-99); Potassium, Blood 4.3 mmol/L (3.5-5.5); Sodium, Blood 131 mmol/L (136-145); Total Protein, Blood 6.4 g/dL (6.4-8.2)
[2021-07-09 06:08] LABS: BAND PERCENT MAN 3 % (0-8); BASOPHILS PERCENT MAN 0 % (0-2); EOSINOPHILS ABSOLUTE MAN 0.57 K/mm3 (0.00-0.68); EOSINOPHILS PERCENT MAN 3 % (0-6); LYMPHOCYTES ABSOLUTE MAN 1.52 K/mm3 (0.84-5.20); LYMPHOCYTES PERCENT MAN 8 % (21-46); MONOCYTES ABSOLUTE MAN 0.38 K/mm3 (0.16-1.47); MONOCYTES PERCENT MAN 2 % (4-13); MYELOCYTE ABSOLUTE MAN 0.38 K/mm3 (0.00-0.00); MYELOCYTE PERCENT MAN 2 % (0-0); SEG NEUTROPHILS PERCENT MAN 82 % (41-73); TOTAL CELLS COUNTED 100
--- NOTE | 2021-07-09 06:26 | NUR ---
SHIFT SUMMARY PT IS ALERT AND ORIENTED. DENIES PAIN. TELE READS NSR 60'S AND 70'S. BP STABLE AND O2 SATS MAINTAINING OVER 93%. PT ON PUREE DIET AND TAKING MEDS CRUSHED WITH APPLESAUCE. BLOOD POOLS IN O2 MASK OVER TRACH COLLAR WHEN PT COUGHS, FREQUENT SUCTIONING AND CHANGING OF TRACH BANDAGE NEEDED. PT SWITCHED TO AC/HS CBGS. Q2 TURNS, ALLEVYN DRESSING ON SACRUM REPLACED. PICC LINE IN LEFT ARM DRAWING. STOOL SOFTENERS WITHELD, PT INCONTINENT FOR BM. CRANE IN PLACE DRAINING YELLOW URINE TO GRAVITY. PT LEFT IN BED RESTING WITH CALL ALARM AT SIDE, WILL CONTINUE TO MONITOR UNTIL REPORT GIVEN
--- NOTE | 2021-07-09 10:49 | NUR ---
Medical update and prognistic outlook provided to the principals family per vital signs, labs and chart review in collaboration with nursing support. Boni coordinated with the patient and his immediate family to promote well-being, foster relational connection, and inspire confidence in Steves reported clinical improvement and overal progress. The principal and his family engaged well, showed signs of palliation, and expressed gratitude for the support, assistance and update. Thank you for this meaningful consult. Hang Sweet ThD
[2021-07-09 13:34] LABS: Vancomycin, Trough 10.4 ug/mL (5.0-10.0)
--- NOTE | 2021-07-09 18:00 | NUR ---
END OF SHIFT SUMMARY: PATIENT REMAINS TRACHED, SPOKE WITH DR. MCDONALD IN REGARDS TO TRACH, EVEN THOUGH SHE WAS NOT THE INTIIATE OF HIS TRACH SHE IS AWARE THAT HE IS GOING TO NEED A DIFFERENT TRACH PLACEMENT IT HAS BEEN PAST 10 DAYS, BECAUSE OF TIME AND NOT BEING ON THE VENT HE NO LONGER NEEDS A CUFFED TRACH, ACCORDING TO THE PROVIDER. SPOKE WITH INFECTION CONTROL, THEY WILL NEED DOCUMENTATION FROM THE PROVIDER THAT HE IS NO LONGER INFECTIOUS HE HAS NOT HAD A RETEST SINCE 06/06/2021. WILL PASS TO [facility] S[facility]ER RN'S. PATIENT THIS AM WAS CHANGED TO HS CBG'S. WAS CHANGED FROM PUREE TO MECHANICAL SOFT, STILL A FEEDER PATIENT WORKED WELL WITH SPEECH, OT, PT, AND NURSING STAFF IN EDUCATION ROM AND EXERCISES. COMMUNICATION HAS BEEN DIFFICULT BUT HAS BEEN IMPROVING PATIENT IS STARTING TO SPEAK OVER THE TRACH. PATIENT IS STILL Q2, SPO2 HAS BEEN GREATER THAN 94% WITH THE EXCEPTION OF SOME VERY HARD MOVEMENTS WE PREFORMED WITH OCCUPATION THERAPY. PATIENT DROPPED TO 79%, BUT RECOVERED ALMOST INSTANTLY. PATIENT HAS BEEN SINUS RHYTHM DURING SHIFT AND BPS STABLE, DENIES CHEST PAIN.
[2021-07-10 03:55] LABS: Hematocrit 30.4 % (37.0-53.0); Hemoglobin 10.2 g/dL (13.5-17.5); Mean Corpuscular HGB 30.5 pg (26.0-34.0); Mean Corpuscular HGB Conc 33.6 g/dL (31.5-36.5); Mean Corpuscular Volume 91 fL (80-100); Mean Platelet Volume 11.9 fL (9.1-12.4); NRBC ABSOLUTE 0.03 K/mm3 (0.00-0.02); NRBC Auto 0.1 /100 WBC (0.0-0.2); Platelet Count 406 K/mm3 (150-400); RDW Coefficient Variation 14.2 % (11.7-14.2); RDW Standard Deviation 46.7 fL (35.1-46.3); Red Blood Cell Count 3.34 M/mm3 (4.30-5.90); White Blood Cell Count 20.51 K/mm3 (4.00-11.30)
[2021-07-10 04:13] LABS: Alanine Aminotransfer (ALT/SGP 133 U/L (12-78); Albumin, Blood 2.2 g/dL (3.4-5.0); Albumin/Globulin Ratio 0.5 (0.8-1.8); Alk Phos 87 U/L (50-136); Anion Gap 3 mmol/L (6-16); Aspartate Aminotrans (AST/SGOT 24 U/L (12-37); Bilirubin, Total 0.8 mg/dL (0.1-1.0); Blood Urea Nitrogen 31 mg/dL (8-24); Bun/Creatinine Ratio 41.1 (12.0-20.0); CO2, Blood 28 mmol/L (21-32); Calcium, Blood 8.4 mg/dL (8.5-10.1); Chloride, Blood 103 mmol/L (98-108); Creatinine, Blood 0.75 mg/dL (0.60-1.20); Globulin, Blood 4.2 g/dL (2.2-4.0); Glomerular Filtration Rate >60 (60-); Glucose, Blood 115 mg/dL (70-99); Sodium, Blood 134 mmol/L (136-145); Total Protein, Blood 6.4 g/dL (6.4-8.2)
--- NOTE | 2021-07-10 06:15 | NUR ---
SHIFT SUMMARY NO ACUTE EVENTS THIS SHIFT. PT ALERT AND ORIENTED X4. TRACH CHANGED AT 1945 TO 6.0 CUFFLESS FENESTRATED. VERBAL COMMUNICATION WITH STAFF SIGNIFICANTLY IMPROVED WITH CHANGE. HR NSR 70'S AND 80'S AND BP STABLE. CRANE DRAINING YELLOW URINE TO GRAVITY. INCONTINENT OF STOOL. 1 LOOSE, BROWN STOOL. BLEEDING THROUGH TRACH DECREASED THIS EVENING COMPARED TO PREVIOUS. TOLERATING MECHANICAL SOFT DIET AND CONTINUING TO TAKE MEDICATIONS WITH WITH APPLESAUCE. Q2 POSITION CHANGES. PT COMPLAINED OF 3-4/10 PAIN IN BUTTOCKS TO START SHIFT, RELIEVED WITH ACETAMINOPHEN. ALLEVYN DRESSING ON SACRUM CHANGED, SKIN CONDITION IMPROVING. LEFT POWERGLIDE SALINE LOCKED. PT COOPERATIVE TO CARE AND MOTIVATED FOR THERAPY DURING THE DAY. PT LEFT IN BED RESTING WITH CALL ALARM AT SIDE
[2021-07-10 06:28] LABS: BASOPHILS PERCENT MAN 0 % (0-2); EOSINOPHILS PERCENT MAN 1 % (0-6); LYMPHOCYTES % ATYPICAL MANUAL 1 % (0-0); LYMPHOCYTES ABSOLUTE MAN 1.43 K/mm3 (0.84-5.20); LYMPHOCYTES PERCENT MAN 6 % (21-46); MONOCYTES ABSOLUTE MAN 0.82 K/mm3 (0.16-1.47); MONOCYTES PERCENT MAN 4 % (4-13); MYELOCYTE ABSOLUTE MAN 0.61 K/mm3 (0.00-0.00); MYELOCYTE PERCENT MAN 3 % (0-0); NEUTROPHILS ABSOLUTE MAN 17.43 K/mm3 (1.96-9.15); SEG NEUTROPHILS PERCENT MAN 85 % (41-73); TOTAL CELLS COUNTED 100
--- NOTE | 2021-07-10 08:33 | NUR ---
[facility] of Care Pt is a/o x 4 and able to conversate slowly. He is working with PT at the bedside and is an active participant in his therapy. He is able to take his PO food and meds very well. Hes on 10 LPM on his trach collar and his sats are @ 91 %. He is very pleasant and able to make his needs known.
[2021-07-10 14:19] LABS: Vancomycin, Trough 17.5 ug/mL (5.0-10.0)
--- NOTE | 2021-07-10 15:57 | NUR ---
Shift Summary Pt is a/o x 4 and is able to conversate in a whisper. His has been updated and she said she would update the rest of the family. He continues on the blowby with his trach and he has been in the high 90's all day. He does desat with activity, especially with PT this morning but he does recover quickly. His cabrera remains in place with clear yellow output. Speech has him on a soft diet. He was taken off isolation today. He has worked with PT and OT today and is an active participant. He has a good appetite and his CBGS have been covered with sliding scale as ordered. He is able to make his needs known and calls for help when needed.
[2021-07-11 05:01] LABS: BASOPHILS ABSOLUTE AUTO 0.04 K/mm3 (0.00-0.23); BASOPHILS PERCENT AUTO 0 % (0-2); EOSINOPHILS ABSOLUTE AUTO 0.13 K/mm3 (0.00-0.68); EOSINOPHILS PERCENT AUTO 1 % (0-6); Hematocrit 31.5 % (37.0-53.0); Hemoglobin 10.4 g/dL (13.5-17.5); IMMATURE GRAN ABSOLUTE AUTO 1.16 K/mm3 (0.00-0.10); IMMATURE GRAN PERCENT AUTO 6 % (0-1); LYMPHOCYTES ABSOLUTE AUTO 1.53 K/mm3 (0.84-5.20); LYMPHOCYTES PERCENT AUTO 8 % (21-46); MONOCYTES ABSOLUTE AUTO 1.51 K/mm3 (0.16-1.47); MONOCYTES PERCENT AUTO 8 % (4-13); Mean Corpuscular HGB 30.1 pg (26.0-34.0); Mean Corpuscular Volume 91 fL (80-100); Mean Platelet Volume 11.7 fL (9.1-12.4); NEUTROPHILS ABSOLUTE AUTO 15.89 K/mm3 (1.96-9.15); NEUTROPHILS PERCENT AUTO 78 % (41-73); NRBC ABSOLUTE 0.02 K/mm3 (0.00-0.02); NRBC Auto 0.1 /100 WBC (0.0-0.2); Platelet Count 413 K/mm3 (150-400); RDW Coefficient Variation 14.6 % (11.7-14.2); RDW Standard Deviation 47.8 fL (35.1-46.3); Red Blood Cell Count 3.46 M/mm3 (4.30-5.90); White Blood Cell Count 20.26 K/mm3 (4.00-11.30)
[2021-07-11 05:25] LABS: Alanine Aminotransfer (ALT/SGP 128 U/L (12-78); Albumin, Blood 2.2 g/dL (3.4-5.0); Albumin/Globulin Ratio 0.5 (0.8-1.8); Alk Phos 86 U/L (50-136); Anion Gap 6 mmol/L (6-16); Aspartate Aminotrans (AST/SGOT 23 U/L (12-37); Bilirubin, Total 0.4 mg/dL (0.1-1.0); Blood Urea Nitrogen 30 mg/dL (8-24); Bun/Creatinine Ratio 38.6 (12.0-20.0); CO2, Blood 26 mmol/L (21-32); Calcium, Blood 8.6 mg/dL (8.5-10.1); Chloride, Blood 100 mmol/L (98-108); Creatinine, Blood 0.78 mg/dL (0.60-1.20); Globulin, Blood 4.4 g/dL (2.2-4.0); Glomerular Filtration Rate >60 (60-); Glucose, Blood 127 mg/dL (70-99); Potassium, Blood 4.2 mmol/L (3.5-5.5); Sodium, Blood 132 mmol/L (136-145); Total Protein, Blood 6.6 g/dL (6.4-8.2)
[2021-07-11 05:58] LABS: BASOPHILS PERCENT MAN 0 % (0-2); EOSINOPHILS PERCENT MAN 0 % (0-6); LYMPHOCYTES ABSOLUTE MAN 1.21 K/mm3 (0.84-5.20); LYMPHOCYTES PERCENT MAN 6 % (21-46); METAMYELOCYTE PERCENT MAN 1 % (0-0); MONOCYTES ABSOLUTE MAN 1.41 K/mm3 (0.16-1.47); MONOCYTES PERCENT MAN 7 % (4-13); MYELOCYTE PERCENT MAN 2 % (0-0); NEUTROPHILS ABSOLUTE MAN 17.01 K/mm3 (1.96-9.15); SEG NEUTROPHILS PERCENT MAN 84 % (41-73); TOTAL CELLS COUNTED 100
--- NOTE | 2021-07-11 06:20 | NUR ---
SHIFT SUMMARY PATIENT PLEASANT, A&OX4, WITH SOME GENERALIZED WEAKNESS. VSS. SR IN THE 60'S-70'S ALL SHIFT. NO PAIN OR DISTRESS NOTED UPON ASSESSMENT. TRACH COLLAR WITH 10L AND 35% FIO2 SATING MID 90'S. PRODUCTIVE COUGH BECOMING LESS FRQUENT. REPLACED INNER CANULA SOME HEMOPTYSIS WITH COUGH. CRANE PATENT DRAINING TO GRAVITY. INCONTINENT OF ONE BM IN BRIEF. TOELRATING SOFT DIET WITHOUT ISSUE. Q2H TURNS IN PLACE. NO ACUTE CONCERNS AT THIS TIME. WILL CONTINUE TO MONITOR UNTIL REPORT GIVEN TO SHRUTI RN.
--- NOTE | 2021-07-11 08:23 | NUR ---
[place] of Care Received report from night nurse. Pt is awake and oriented x 4 and very pleasant. RT dis some trach care with him this morning as his site was bloody again and the dr is aware of that. He is working with PT. He has a good appetite and is mindful about his swallowing. He remains on the blow by on his trach collar and his sats are in the 90's. Per care management the plan is for him to transfer to [facility] when they have an open bed for him.
--- NOTE | 2021-07-11 16:23 | NUR ---
Shift Summary Pt is a/o x 4 and has no c/o pain. He is very pleasant and an active participant in his care. He worked with therapies again today and was able to sit up on the side of the bed with PT this morning. Trach care was done by Rt this morning. He continues to have a good appetite and his blood sugars have been covered with sliding scale as ordered. We are awaiting a bed at [facility] for him. His has been updated and she brought him a tablet today so that he can video call his family. His cabrera is patent with clear yellow output. He remains on the blowby with his trach collar with a 10 LPM bleed in with sats in the 90's. He is able to make his needs known and calls for help when needed.
[2021-07-12 04:17] LABS: Hematocrit 29.8 % (37.0-53.0); Hemoglobin 9.9 g/dL (13.5-17.5); Mean Corpuscular HGB 30.6 pg (26.0-34.0); Mean Corpuscular HGB Conc 33.2 g/dL (31.5-36.5); Mean Corpuscular Volume 92 fL (80-100); Mean Platelet Volume 11.7 fL (9.1-12.4); NRBC ABSOLUTE 0.03 K/mm3 (0.00-0.02); NRBC Auto 0.2 /100 WBC (0.0-0.2); Platelet Count 365 K/mm3 (150-400); RDW Coefficient Variation 14.7 % (11.7-14.2); RDW Standard Deviation 49.2 fL (35.1-46.3); Red Blood Cell Count 3.24 M/mm3 (4.30-5.90); White Blood Cell Count 18.09 K/mm3 (4.00-11.30)
[2021-07-12 04:37] LABS: Alanine Aminotransfer (ALT/SGP 119 U/L (12-78); Albumin, Blood 2.2 g/dL (3.4-5.0); Albumin/Globulin Ratio 0.6 (0.8-1.8); Alk Phos 83 U/L (50-136); Anion Gap 5 mmol/L (6-16); Aspartate Aminotrans (AST/SGOT 23 U/L (12-37); Bilirubin, Total 0.6 mg/dL (0.1-1.0); Blood Urea Nitrogen 31 mg/dL (8-24); Bun/Creatinine Ratio 41.3 (12.0-20.0); CO2, Blood 26 mmol/L (21-32); Calcium, Blood 8.2 mg/dL (8.5-10.1); Chloride, Blood 101 mmol/L (98-108); Creatinine, Blood 0.75 mg/dL (0.60-1.20); Glomerular Filtration Rate >60 (60-); Glucose, Blood 159 mg/dL (70-99); Potassium, Blood 4.1 mmol/L (3.5-5.5); Sodium, Blood 132 mmol/L (136-145); Total Protein, Blood 6.2 g/dL (6.4-8.2)
--- NOTE | 2021-07-12 05:05 | NUR ---
Shift Summary Pt has slept for the majority of the night. Pt has used call light when assistance is needed and has clearly made needs known, A&O x4, no C/O pain. Pt continues to be incontinent of stool, but is aware and will alert staff at its occurence. Murphy catheter is in place and patent draining to gravity, clear yellow urine. Routine tracheostomy care was performed and the inner cannula was replaced. The inner cannula that was removed was partially occluded with a thick, bloody sputum, the blood was apparently old based on the color and consistency. Tracheostomy collar with blow-by oxygen of 10Lpm and 30% FiO2 remains in place and SpO2 readings have consistently remained >90%. Pt has been an active participant in care and assisted, as much as they were able, for respositioning. No other acute changes noted.
[2021-07-12 05:53] LABS: BAND PERCENT MAN 2 % (0-8); BASOPHILS PERCENT MAN 0 % (0-2); EOSINOPHILS ABSOLUTE MAN 0.36 K/mm3 (0.00-0.68); EOSINOPHILS PERCENT MAN 2 % (0-6); LYMPHOCYTES ABSOLUTE MAN 0.18 K/mm3 (0.84-5.20); LYMPHOCYTES PERCENT MAN 1 % (21-46); MONOCYTES ABSOLUTE MAN 1.62 K/mm3 (0.16-1.47); MONOCYTES PERCENT MAN 9 % (4-13); MYELOCYTE ABSOLUTE MAN 0.18 K/mm3 (0.00-0.00); MYELOCYTE PERCENT MAN 1 % (0-0); NEUTROPHILS ABSOLUTE MAN 15.73 K/mm3 (1.96-9.15); SEG NEUTROPHILS PERCENT MAN 85 % (41-73); TOTAL CELLS COUNTED 100
--- NOTE | 2021-07-12 08:30 | NUR ---
ASSUMED CARE OF PATIENT. DR. CHAVEZ INTO SEE PATIENT. PER MD PATIENT OKAY TO CHANGE TO MED NO TELE STATUS. PATIENT APPEARS VERY CONCERNED ABOUT STATUS. REPORTS CONCERN OVER ABILITY TO PAY FOR VENT FACILITY NO INSURANCE. OREINTED TO CALL LIGHT AND ROOM LAYOUT. ABLE TO DEMONSTRATE APPROPPRIATE USE OF CALL LIGHT.
--- NOTE | 2021-07-12 18:06 | NUR ---
END SHIFT SUMMARY PATIENT WITH GOOD DAY TODAY. NO KNOWN PLANS FOR ACTIVE TRANSPORT TO [facility]. PATEINT VERY CONCERNED ABOUT TRANSFER AN ASSOCIATED [employer] REPORTS HAS NO HEALTH INSURANCE. REMAINS AT 35% FIO2 T/O DAY. WORKED WITH PT/OT DANGING AT BEDSIDE. MAINAINED SPO2 APPROX 90% FOR THERAPY. USING CALL LIGHT APPROPRIATLY. CRANE APPEARS TO BE GREATER THAN 30 DAYS OLD. CALLED AND DISCUSSED WITH . CRANE CATHETER DISCONTINUED AT [id number].
--- NOTE | 2021-07-13 05:06 | NUR ---
Shift Summary Pt has slept for the majority of the night. Pt had concerns over current illness and convalescence that were addressed. No c/o pain or discomfort. Pt voided with assitance in urinal x2. Pt used call light appropriately and made needs clearly known. This RN notes a marked improvement in the pt's quality of speech, a more conversational keira and more words between breaths are noted. Tracheostomy is productive with blood tinged sputum that the pt clears without assistance, inner cannula was replaced and had thick, blood tinged sputum adhered to it. VSS, SpO2 maintained >90%. No acute changes noted.
--- NOTE | 2021-07-13 12:22 | NUR ---
TRANSFER NOTE REPORT WAS GIVEN TO MARY MIKE RN APPROX. [id number]. PT WAS STABLE UPON TRANSFER/TRANSFERED VIA HOSPITAL BED BY KIERSTEN MONTIEL AND ABDOUL FROM [facility]. PT TRES WAS CALLED AND UPDATED ABOUT TRANSFER TO MEDICAL FLOOR.
--- NOTE | 2021-07-13 18:58 | NUR ---
Alert and oriented x3 , continue on 10 L VIA Trache collar , no SOB noted.Take pills whole one at a time with an applesauce. Use urinal for voiding. Insulin coverage was done for blood glucose , no adverse effects noted. Worked with PT/OT for strength and endurance , improving per PT/OT. Continue to monitor.
[2021-07-14 05:47] LABS: Anion Gap 5 mmol/L (6-16); Blood Urea Nitrogen 30 mg/dL (8-24); Bun/Creatinine Ratio 41.7 (12.0-20.0); CO2, Blood 27 mmol/L (21-32); Calcium, Blood 8.7 mg/dL (8.5-10.1); Chloride, Blood 102 mmol/L (98-108); Creatinine, Blood 0.72 mg/dL (0.60-1.20); Glomerular Filtration Rate >60 (60-); Glucose, Blood 86 mg/dL (70-99); Potassium, Blood 3.8 mmol/L (3.5-5.5); Sodium, Blood 134 mmol/L (136-145)
--- NOTE | 2021-07-14 06:31 | NUR ---
Lalit had no complaints of pain overnight although, his legs were sore after position changes as he has become so deconditioned over the coarse of his illness. Discmfort resolved after a minimal amount of time without pharmaceutical intervention. Trach tube changed early in evening due to a clotted area in the tube that the patient had experienced before. Alert and oriented without complaints. slept well after HS medications. Sacral area red with some areas peeling. sacral mepilex placed for protection
--- NOTE | 2021-07-14 18:53 | NUR ---
Alert and oriented x3 , able to feed self. Continue 10 L via trach collar ,sunctioning was done by RT, reported significant secretion. vital signs are stable. Insulin coverage was given for blood sugar , no adverse effects noted. Two persons extensive assist with bed mobility and repositioning. Miplex applied to buttock for prevention of skin breakdown. pleasant and cooperative.Continue to monitor.
--- NOTE | 2021-07-15 05:21 | NUR ---
PATIENT STILL GETS EXTREMELY WINDED WHEN BRIEFLY RELAYING ANSWERS DURING ASSESSMENT. HE REMAINS ON 10 LITERS TO TRACH. PER RT, THERE IS STILL QUITE A BIT OF DRIED BLOOD THAT ACCUMULATES ON TRACH, BUT NO MORE CLOTS SINCE EARLY THURSDAY EVENING. HE IS VERY MOTIVATED TO GET STRONGER, AND WAS WORKING ON LEG LIFTS AND ANKLE PUMPS MULTIPLE TIMES YESTERDAY EVENING.
--- NOTE | 2021-07-15 14:31 | NUR ---
PT CURRENTLY ON RA ON THE TRACH COLLAR SATS 90-91% AND ADRIANO WELL.
--- NOTE | 2021-07-15 18:20 | NUR ---
PATIENT IS ALERT AND ORIENTED AND COOPERATIVE WITH CARE. PATIENT HAS TRACH, ON RA. DR. MCDONALD ORDERED TRIAL TRACH PLUG BE DONE BY RT. THE RT TODAY DECIDED THE PATIENT'S TRACH IS STILL TOO WET WITH SECRETIONS TO TRIAL TODAY. DR. CHAVEZ NOTIFIED OF THIS. PATIENT USES THE URINAL. INCONTINENT OF STOOL, ATTENDS IN PLACE. NEEDS ASSISTANCE WITH REPOSITIONING, CALLS APPROPRIATELY FOR THIS. WILL CONTINUE TO MONITOR
--- NOTE | 2021-07-16 04:38 | NUR ---
END OF SHIFT SUMMARY: PT ON ROOM AIR. NO SIGNS OF DISTRESS. PT REPORTING NO SOB. PT IS INCONTINENT AND ONE PERSON ASSIST WITH TURNING AND REPOSITIONING. PT A&OX4. RESTING COMFORTABLY AT THIS TIME.
--- NOTE | 2021-07-16 15:37 | NUR ---
Pt. started capping trial on 3 L NC at 11:30 am. Not showing at signs of distress. I will continue to monitor.
--- NOTE | 2021-07-16 18:54 | NUR ---
PT A/O X 4, PLEASANT AND COOPERATIVE, VERY WEAK AND DEBILITATED DUE TO COVID. PLAN IS TO GO TO REHAB ON DISCHARGE. RESP THERAPY PERFORMED A TRACH CAP TRIAL TODAY. WHEN CAPPED AND ON ROOM AIR PTS SATS DROPPED DOWN INTO THE 80'S. PLACED ON OXYGEN UNTIL SATS WERE ABOVE 90%. PT 94% ON 3LNC. WILL CONTINUE TO MONITOR AND REPORT TO ONCOMING RN.
--- NOTE | 2021-07-17 05:55 | NUR ---
END OF SHIFT REPORT: Pt resting well. On 3LNC. Denies SOB and trouble breathing overnight.
--- NOTE | 2021-07-17 14:37 | NUR ---
THE PATIENT HAS BEEN UP TO CHAIR SINCE 11AM. HE IS ALERT AND ORIENTED X 4 AND RESTING COMFORTABLY. O2 SAT 94% ON 1L WITH GOAL TO WEAN OFF. VS WNL. DRSG INTACT TO SACRAL AREA WITH REDNESS NOTED. LOOSE STOOLS AND STOOL SOFTNER WERE HELD. VOIDING WITHOUT DIFFICULTY. GOOD PO INTAKE. IN NO ACUTE DISTRESS. WILL CONTINUE TO MONITOR.
--- NOTE | 2021-07-17 18:52 | NUR ---
THE PATIENT TOLERATED UP TO CHAIR FROM 11AM TO 6PM. OXYGENT DECREASED THIS AM FROM 3L TO 1L WITH O2 SAT >94%. VS WNL. TRANSFER TO CHAIR VIA LIFT. HE IS ABLE AND MOTIVATED TO ASSIST WITH ACTIVITY. VERY PLEASANT AND COOPERATIVE. BM X 5 TODAY/ STOOL LOOSE TO SOFT. LUNGS CLEAR. GOOD APPETITE. VOIDING WITH DIFFICULTY. UNEVENTFUL TODAY.
--- NOTE | 2021-07-18 14:16 | NUR ---
Pt. wean on capping trial for x3 days. Pt. has a productive cough and can clear secrections. As per order for decannulation. I decannulated pt. with RNs present. Pt. not showing any signs of distress. I will continue to monitor.
--- NOTE | 2021-07-18 16:45 | NUR ---
SHIFT SUMMARY PATIENT DENIES PAIN, NAUSEA, AND SHORTNESS OF BREATH. PATIENT WAS ON 1L AT THE BEGINNING OF SHIFT AND MAINTAINING SATURATIONS AT 92-93%. PATIENT WAS DECANNULATED THIS AFTERNOON. PATIENT ON 1L AND MAINTAINING SATURATIONS IN THE MID 90'S. PATIENT WORKED WITH PT TODAY. PATIENT EATING AND DRINKING WELL. POSSIBLE SNF DISCHARGE TOMORROW. PATIENT IS PLEASANT AND COOPERATIVE WITH CARE.
--- NOTE | 2021-07-19 06:11 | NUR ---
SHIFT SUMMARY PT IS A 55 Y/O MALE, ADMITTED FOR PNA D/T COVID-19. HE IS A&O X 4, LIFT BETWEEN BED AND CHAIR, INCONTINENT OF BOWEL. PT IS CURRENTLY ON 1L VIA NC, SATTING > 90%. VITAL SIGNS STABLE. TRACH WAS REMOVED 2 DAYS AGO, SITE C/D/I. NO C/O ACUTE PAIN, NAUSEA OR SOB. NO ACUTE CHANGES IN PT CONDITION NOTED DURING THE NIGHT. WILL CONTINUE TO MONITOR AND TREAT PER EMAR UNTIL HAND OFF TO DAY SHIFT RN.
[2021-07-19 13:27] LABS: SARS-Cov-2 (COVID-19) PCR, MMC NEGATIVE (NEGATIVE)
--- NOTE | 2021-07-19 16:32 | NUR ---
SHIFT SUMMARY PATIENT DENIES PAIN, NAUSEA, AND SHORTNESS OF BREATH. PATIENT WORKED WITH PT AND OT TODAY. PATIENT WAS UP IN CHAIR MOST OF DAY. PATIENT IS ON ROOM AIR AND SATURATING ABOVE 93%. DRESSING OVER TRACH HOLE WAS CHANGED. MINIMAL DRAINAGE. PATIENT EATING AND DRINKING WELL. COVID SWAB PERFORMED TODAY DUE TO POSSIBLE SNF DISCHARGE. RESULTS WERE NEGATIVE. INSURANCE PRE-AUTHORIZATION PENDING SNF DISCHARGE. PATIENT IS PLEASANT AND COOPERATIVE WITH CARE.
--- NOTE | 2021-07-20 06:36 | NUR ---
PATIENT IS ALERT AND ORIENTED X4. VS STABLEL FOR PATIENT ON RA. NO COMPLAINTS OF CHEST PAIN OR SHORTNESS OF BREATH. ENCOURAGED PATIENT TO INCREASE ACTIVITY TOLERATED. ALL CARES COMPLETED AND MEDICATIONS GIVEN ORDERED TONNY NURSING JUDGEMENT. ALL UNFINISHED CARES ENDORSED TO ONCOMING RN. PATIENT AWAITING DISCHARGE.
--- NOTE | 2021-07-20 18:23 | NUR ---
SHIFT SUMMARY PT IS A&O, BUT VERY WEAK AND DECONDITIONED. PER REPORT, PT WAITING FOR SNF PLACEMENT BUT DENIED BY INSURANCE. DR FRANKLIN IN TO SEE PT. DISCUSSED PLAN OF CARE. DIRECTOR LABOR STANDARDS TO RETURN ON THURSDAY AND CONTINUE TO WORK ON PLACEMENT. PT WAS ABLE TO DO SOME EXERCISES WITH P/T. PT ALSO ENCOURAGED TO CONTINUE DOING THE EXERCISES THRU OUT THE DAY AND NIGHT. PT HAS BEEN DOING SO, EVERY HOUR HE STATED. IMPROVEMENT NOTED IN R ARM MOBILITY. PT'S CALLED FOR UPDATE; GIVEN. ENCOURAGED TO HELP PT UNDERSTAND HIS NEED TO PARTICIPATE IN HIS OWN CARE AND DO WHAT HE CAN TO BECOME MORE MOBILE. AGREED. PT CONTINENT AND INCONTINENT OF BOWEL AND BLADDER. CALLS FOR URINAL WHEN AWAKE. CALL LT IN REACH. ABLE TO MAKE NEEDS KNOWN.
--- NOTE | 2021-07-21 04:21 | NUR ---
SHIFT SUMMARY PATIENT IS ALERT AND ORIENTED X4. VS STABLE FOR PATIENT ON RA. NO COMPLAINTS OF CHEST PAIN OR SHORTNESS OF BREATH. ENCOURAGED PATIENT TO INCREASE ACTIVITY TOLERATED. PATIENT IS WORKIGN WITH PT TO INCREASE STRENGTH. ENCOURAGED PATIENT TO USE IS AT LEAST 5-10X PER HOUR. SKING/ PRESSURE ULCER PRECAUTIONS MAINTAINED. ENCOURAGED PATIENT TO TURN Q2HR. ALL CARES COMPLETED AND MEDICATIONS GIVEN ORDERED ACCORDING TO NURSING JUDGEMENT. ALL UNFINISHED CARES ENDORSED TO ONCOMING RN.
--- NOTE | 2021-07-21 12:46 | NUR ---
SHIFT SUMMARY NO ACUTE CHANGES THIS SHIFT. PT REMAINS WEAK AND DECONDITIONED, BUT DOING P/T EXERCISES FOR IMPROVEMENT. LIFT SHEET USED TO GET PT TO CHAIR AT BS. NO C/O PAIN. N/T REPORTED IN FEET YESTERDAY, IMPROVED. A&O, WATCHING TV. CALL LT IN REACH, ABLE TO MAKE NEEDS KNOWN.
--- NOTE | 2021-07-22 05:43 | NUR ---
SHIFT SUMMARRY PATIENT REMAINS QUIET IN HIS ROOM. VSS. NO SS OF CARDIAC/RESPIRATORY DISTRESS NOTED. NO ACUTE MEDICAL CHANGES
[2021-07-22 09:31] LABS: Albumin, Blood 2.5 g/dL (3.4-5.0); Anion Gap 7 mmol/L (6-16); Blood Urea Nitrogen 17 mg/dL (8-24); Bun/Creatinine Ratio 23.6 (12.0-20.0); CO2, Blood 27 mmol/L (21-32); Calcium, Blood 8.9 mg/dL (8.5-10.1); Chloride, Blood 106 mmol/L (98-108); Creatinine, Blood 0.72 mg/dL (0.60-1.20); Glomerular Filtration Rate >60 (60-); Glucose, Blood 104 mg/dL (70-99); Phosphorus, Blood 3.9 mg/dL (2.5-4.9); Sodium, Blood 140 mmol/L (136-145)
--- NOTE | 2021-07-22 17:31 | NUR ---
SHIFT SUMMARY PT SITTING UP IN BED FOR MEALS. ON ROOMM AIR THROUGHOUT THE DAY WITH P.T. REPORTING SATS DROPPING WITH ACTIVITYNWHILE ON RA UT RECOVERS WITHIN 2 MINUTES. DOES APPEAR TO HAVE SOME FORGETFULNESS BUT APPEARS APPROPRIATE GENERALLY. DENIES RESP DISTRESS THROUGH DAY. DRESSING COVERING TRACH SITE COVERED WITH OCCASIONAL SOUNDS OF AIR LEAKING THROUGH.
--- NOTE | 2021-07-23 05:25 | NUR ---
SHIFT SUMMARRY PATIENT REMAINS QUIET THROUGHOUT SHIFT. REQUESTED TYLENOL FOR BACK PAIN AND CALF PAIN WITH GOOD EFFECTS.NO ACUTE MEDICAL CHANGES DURING SHIFT.
[2021-07-23] MEDS ORDERED: Acetaminophen650 M1 PO (15:08)
[2021-07-23] MEDS ORDERED: HUMALOG KW100 UNIT/1 SC (15:09)
[2021-07-23] MEDS ORDERED: IPRAT-ALBUT 0.5-3 ML INH (15:11)
[2021-07-23] MEDS ORDERED: METO25 PO (15:12)
[2021-07-23] MEDS ORDERED: PRED5 PO (15:13)
--- NOTE | 2021-07-23 17:07 | NUR ---
DISCHARGE PATIENT TRANSPORTED VIA WHEELCHAIR TO [facility] TO [facility]. PACKET SENT WITH [employer]. PICC LINE REMOVED BY CHARGE NURSE. BELONGINGS SENT WITH PATIENT. REPORT CALLED TO TIANA WONG.
== END 2021-07-23 16:58 | DRG 4 ==
LOC: ER 18:36 → PCU 22:40 → ICUW 22:40 → MEDS 22:40 → ICUW 23:44 → PCU 07-01 12:46 → MEDS 07-13 10:15
PROVIDERS: Family Medicine; Hospitalist; Internal Medicine; Internal Medicine Critical Care Medicine; Pharmacist; Physician Assistant; Student in an Organized Health Care Education/Training Program; ADMIT Internal Medicine
PROC: 5A09357 Assistance with Respiratory Ventilation, Less than 24 Consecutive Hours, Continuous Positive Airway Pressure (ICD-10-PCS; principal; 2021-06-06)
PROC: 8E0ZXY6 Isolation (ICD-10-PCS; 2021-06-06)
PROC: 3E0333Z Introduction of Anti-inflammatory into Peripheral Vein, Percutaneous Approach (ICD-10-PCS; 2021-06-06)
PROC: XW033E5 Introduction of Remdesivir Anti-infective into Peripheral Vein, Percutaneous Approach, New Technology Group 5 (ICD-10-PCS; 2021-06-06)
PROC: 5A1955Z Respiratory Ventilation, Greater than 96 Consecutive Hours (ICD-10-PCS; 2021-06-10)
PROC: 0BH17EZ Insertion of Endotracheal Airway into Trachea, Via Natural or Artificial Opening (ICD-10-PCS; 2021-06-10)
PROC: 0B113F4 Bypass Trachea to Cutaneous with Tracheostomy Device, Percutaneous Approach (ICD-10-PCS; 2021-06-27)
PROC: 0BP1XFZ Removal of Tracheostomy Device from Trachea, External Approach (ICD-10-PCS; 2021-07-18)
DX: U07.1 COVID-19 (principal); J12.82 Pneumonia due to coronavirus disease 2019; J96.01 Acute respiratory failure with hypoxia; J15.9 Unspecified bacterial pneumonia; B37.1 Pulmonary candidiasis; E87.0 Hyperosmolality and hypernatremia; Z66 Do not resuscitate; E87.1 Hypo-osmolality and hyponatremia; J95.01 Hemorrhage from tracheostomy stoma; I10 Essential (primary) hypertension; E66.9 Obesity, unspecified; J98.2 Interstitial emphysema; E87.70 Fluid overload, unspecified; E87.6 Hypokalemia; G24.9 Dystonia, unspecified; E83.39 Other disorders of phosphorus metabolism; E86.0 Dehydration; R74.01 Elevation of levels of liver transaminase levels; G72.9 Myopathy, unspecified; D64.9 Anemia, unspecified; E11.65 Type 2 diabetes mellitus with hyperglycemia
CPT/HCPCS: 31500; 31502; 31720; 36415; 36569; 36600; 51702; 71045; 71250; 80048; 80053; 80069; 80202; 81001; 82248; 82330; 82728; 82803; 82947; 83036; 83735; 84100; 84145; 85025; 85379; 85610; 85730; 86140; 87040; 87070; 87205; 92526; 92610; 93005; 93010; 93970; 94002; 94003; 94640; 94644; 94660; 94762; 96374; 97110; 97112; 97162; 97167; 97530; 97535; 99285-25; A9270; C1751; C9113; J0330; J0360; J0456; J0610; J0692; J0696; J1100; J1450; J1650; J1815; J1940; J2060; J2250; J2270; J2704; J2765; J2997; J3010; J3370; J3480; J7030; J7050; J7060; J7120; J7512; U0004

== ENCOUNTER → 2021-10-11 | Outpatient (CLI) | payer OTHER ==
[~2021-10-11] MED LIST changes: +Acetaminophen650 M1 PO; +HUMALOG KW100 UNIT/1 SC; +IPRAT-ALBUT 0.5-3 ML INH; +METO25 PO; +PRED5 PO
[2021-10-11 15:28] LABS: BASOPHILS ABSOLUTE AUTO 0.05 K/mm3 (0.00-0.23); BASOPHILS PERCENT AUTO 1 % (0-2); EOSINOPHILS ABSOLUTE AUTO 0.33 K/mm3 (0.00-0.68); EOSINOPHILS PERCENT AUTO 5 % (0-6); Hematocrit 40.2 % (37.0-53.0); Hemoglobin 12.9 g/dL (13.5-17.5); IMMATURE GRAN ABSOLUTE AUTO 0.01 K/mm3 (0.00-0.10); IMMATURE GRAN PERCENT AUTO 0 % (0-1); LYMPHOCYTES ABSOLUTE AUTO 1.55 K/mm3 (0.84-5.20); LYMPHOCYTES PERCENT AUTO 24 % (21-46); MONOCYTES ABSOLUTE AUTO 0.71 K/mm3 (0.16-1.47); MONOCYTES PERCENT AUTO 11 % (4-13); Mean Corpuscular HGB 29.3 pg (26.0-34.0); Mean Corpuscular HGB Conc 32.1 g/dL (31.5-36.5); Mean Corpuscular Volume 91 fL (80-100); NEUTROPHILS ABSOLUTE AUTO 3.92 K/mm3 (1.96-9.15); NEUTROPHILS PERCENT AUTO 60 % (41-73); Platelet Count 339 K/mm3 (150-400); RDW Standard Deviation 43.6 fL (35.1-46.3); Red Blood Cell Count 4.41 M/mm3 (4.30-5.90); White Blood Cell Count 6.57 K/mm3 (4.00-11.30)
[2021-10-11 16:42] LABS: Alanine Aminotransfer (ALT/SGP 35 U/L (12-78); Albumin, Blood 3.6 g/dL (3.4-5.0); Albumin/Globulin Ratio 1.1 (0.8-1.8); Alk Phos 58 U/L (50-136); Anion Gap 7 mmol/L (6-16); Aspartate Aminotrans (AST/SGOT 23 U/L (12-37); Bilirubin, Total 0.3 mg/dL (0.1-1.0); Blood Urea Nitrogen 15 mg/dL (8-24); Bun/Creatinine Ratio 13.9 (12.0-20.0); CO2, Blood 22 mmol/L (21-32); Calcium, Blood 9.3 mg/dL (8.5-10.1); Chloride, Blood 113 mmol/L (98-108); Creatinine, Blood 1.08 mg/dL (0.60-1.20); Globulin, Blood 3.3 g/dL (2.2-4.0); Glomerular Filtration Rate >60 (60-); Glucose, Blood 109 mg/dL (70-99); Potassium, Blood 4.5 mmol/L (3.5-5.5); Sodium, Blood 142 mmol/L (136-145); Total Protein, Blood 6.9 g/dL (6.4-8.2)
== END | disposition home or self-care (01) ==
LOC: LAB 12:27 → LAB SHORT 12:27
PROVIDERS: Physician Assistant
DX: D64.9 Anemia, unspecified (principal)
CPT/HCPCS: 80053; 85025

== ENCOUNTER → 2022-12-10 | Outpatient (CLI) | payer OTHER ==
[2022-12-10 12:51] LABS: Creatinine, Urine Random 77.4 mg/dL (27.00-270.00); Microalb/Creat Ratio UR, Rand 31.266 mg/g (0.000-30.000); Microalbumin, Random Urine 24.2 mg/L (0.000-20.000)
== END | disposition home or self-care (01) ==
LOC: LAB SHORT 09:42
PROVIDERS: Physician Assistant
DX: E11.65 Type 2 diabetes mellitus with hyperglycemia (principal)
CPT/HCPCS: 82043; 82570

== ENCOUNTER 2023-07-01 09:27 | Day surgery (SDC) | payer OTHER ==
[~2023-07-01] VITALS: Ht 182.9 cm; Wt 146.0 kg
[2023-07-01 10:55] VITALS: BP 126/76
[2023-07-01] MEDS ORDERED: ALBU90OI INH (11:04)
[2023-07-01] MEDS ORDERED: GABAPENTIN600 MG PO (11:05)
[2023-07-01] MEDS ORDERED: ATOR40TA PO (11:05)
[2023-07-01] MEDS ORDERED: METF500 PO (11:06)
--- NOTE | 2023-07-01 11:35 | NUR ---
History, Chart, Medications and Allergies reviewed before start of procedure.PRE OP [id number] DONE, GLASSES LEFT AT BEDSIDE
--- NOTE | 2023-07-01 11:38 | NUR ---
07/01/23 1138 Frantz Winn MONITOR INTACT WITH CONTINUOUS PULSE OXIMETRY, CONTINUOUS END TITAL CO2, AND INTERMITTENT BLOOD PRESSURE. AND EKG ANESTHESIA PER DR. CUEVAS
[2023-07-01 12:06] VITALS: BP 116/82
[2023-07-01 12:16] VITALS: BP 124/84
--- NOTE | 2023-07-01 12:19 | NUR ---
TOLERATING PO FLUIDS WELL. DENIES PAIN. Patient up to Ambulate independently. Gait steady. Discharge instructions reviewed with patient. Patient verbalizes understanding. Copy given to patient to take home. Discharged via wheelchair to private car for ride home.
== END 2023-07-01 22:45 | disposition home or self-care (01) ==
LOC: ORSCMMR 09:27 → ORD 11:00 → ORSCMMR 11:00
PROVIDERS: Internal Medicine Gastroenterology
PROC: 0DBC8ZX Excision of Ileocecal Valve, Via Natural or Artificial Opening Endoscopic, Diagnostic (ICD-10-PCS; principal; 2023-07-01 11:00)
DX: Z12.11 Encounter for screening for malignant neoplasm of colon (principal); D12.0 Benign neoplasm of cecum; I10 Essential (primary) hypertension; E78.00 Pure hypercholesterolemia, unspecified; E11.9 Type 2 diabetes mellitus without complications; E78.5 Hyperlipidemia, unspecified; Z86.16 Personal history of COVID-19; E66.01 Morbid (severe) obesity due to excess calories; Z68.41 Body mass index [BMI] 40.0-44.9, adult; Z79.84 Long term (current) use of oral hypoglycemic drugs; Z79.899 Other long term (current) drug therapy; G47.33 Obstructive sleep apnea (adult) (pediatric)
CPT/HCPCS: 82947; 88305; J2001; J2704; J7120

== ENCOUNTER → 2023-09-16 | Outpatient (CLI) | payer OTHER ==
[~2023-09-16] MED LIST changes: +ALBU90OI INH; +ATOR40TA PO; +GABAPENTIN600 MG PO; +METF500 PO
[2023-09-16 22:28] LABS: Anion Gap 7 mmol/L (6-16); Blood Urea Nitrogen 16 mg/dL (8-24); Bun/Creatinine Ratio 13.6 (12.0-20.0); CHOL/HDL RATIO 3.6; CO2, Blood 24 mmol/L (21-32); Calcium, Blood 9.4 mg/dL (8.5-10.1); Chloride, Blood 106 mmol/L (98-108); Cholesterol 140 mg/dL (50-200); Creatinine, Blood 1.18 mg/dL (0.60-1.20); Glomerular Filtration Rate 71 (60-); Glucose, Blood 118 mg/dL (70-99); HDL Cholesterol 39 mg/dL (>39); LDL/HDL RATIO 2.2; Low Density Lipoprotein Chol 85 mg/dL (0-110); Potassium, Blood 4.5 mmol/L (3.5-5.5); Sodium, Blood 137 mmol/L (136-145); Triglycerides 80 mg/dL (30-160); Very Low Density Lipoprot Chol 16 mg/dL (6-32)
== END ==
LOC: LAB 13:38 → LAB SHORT 13:38
PROVIDERS: Physician Assistant
DX: E11.65 Type 2 diabetes mellitus with hyperglycemia (principal)
CPT/HCPCS: 80048; 80061; 83036

== ENCOUNTER → 2024-02-18 | Outpatient (CLI) | payer OTHER ==
[2024-02-18 16:39] LABS: BASOPHILS ABSOLUTE AUTO 0.08 K/mm3 (0.00-0.23); BASOPHILS PERCENT AUTO 1 % (0-2); EOSINOPHILS ABSOLUTE AUTO 0.41 K/mm3 (0.00-0.68); EOSINOPHILS PERCENT AUTO 6 % (0-6); Hematocrit 41.6 % (37.0-53.0); Hemoglobin 13.7 g/dL (13.5-17.5); IMMATURE GRAN ABSOLUTE AUTO 0.02 K/mm3 (0.00-0.10); IMMATURE GRAN PERCENT AUTO 0 % (0-1); LYMPHOCYTES ABSOLUTE AUTO 1.91 K/mm3 (0.84-5.20); LYMPHOCYTES PERCENT AUTO 27 % (21-46); MONOCYTES ABSOLUTE AUTO 0.84 K/mm3 (0.16-1.47); MONOCYTES PERCENT AUTO 12 % (4-13); Mean Corpuscular HGB 30.4 pg (26.0-34.0); Mean Corpuscular HGB Conc 32.9 g/dL (31.5-36.5); Mean Corpuscular Volume 92 fL (80-100); Mean Platelet Volume 11.2 fL (9.1-12.4); NEUTROPHILS ABSOLUTE AUTO 3.91 K/mm3 (1.96-9.15); NEUTROPHILS PERCENT AUTO 55 % (41-73); Platelet Count 283 K/mm3 (150-400); RDW Coefficient Variation 13.2 % (11.7-14.2); RDW Standard Deviation 45.1 fL (35.1-46.3); White Blood Cell Count 7.17 K/mm3 (4.00-11.30)
[2024-02-18 16:44] LABS: Albumin, Blood 3.7 g/dL (3.4-5.0); Albumin/Globulin Ratio 1.1 (0.8-1.8); Bilirubin, Total 0.3 mg/dL (0.1-1.0); Bun/Creatinine Ratio 20.8 (12.0-20.0); Calcium, Blood 9.5 mg/dL (8.5-10.1); Creatinine, Blood 1.06 mg/dL (0.60-1.20); Globulin, Blood 3.4 g/dL (2.2-4.0); Potassium, Blood 4.5 mmol/L (3.5-5.5); Total Protein, Blood 7.1 g/dL (6.4-8.2)
== END ==
LOC: LAB 15:50 → LAB SHORT 15:50
PROVIDERS: Nurse Practitioner Family
DX: Z01.89 Encounter for other specified special examinations (principal)
CPT/HCPCS: 80053; 85025

== ENCOUNTER → 2024-07-05 | Outpatient (CLI) | payer OTHER ==
[2024-07-05 19:35] LABS: Bun/Creatinine Ratio 17.2 (12.0-20.0); Creatinine, Blood 1.16 mg/dL (0.60-1.20); Potassium, Blood 4.4 mmol/L (3.5-5.5)
== END | disposition home or self-care (01) ==
LOC: LAB SHORT 17:36 → LAB 17:36
PROVIDERS: Nurse Practitioner Family
DX: R16.1 Splenomegaly, not elsewhere classified (principal)
CPT/HCPCS: 80048

== ENCOUNTER 2024-07-08 10:37 | Emergency (ER) | payer OTHER ==
[~2024-07-08] VITALS: Ht 182.9 cm; Wt 148.3 kg
[2024-07-08 10:43] VITALS: BP 159/109
== END 2024-07-08 12:03 | disposition home or self-care (01) ==
LOC: ER 10:37
DX: Z43.0 Encounter for attention to tracheostomy (principal); Z79.899 Other long term (current) drug therapy; Z79.84 Long term (current) use of oral hypoglycemic drugs; G47.30 Sleep apnea, unspecified; I10 Essential (primary) hypertension; E78.00 Pure hypercholesterolemia, unspecified; E11.9 Type 2 diabetes mellitus without complications; Z87.891 Personal history of nicotine dependence
CPT/HCPCS: 99283

== ENCOUNTER → 2024-07-21 | Outpatient (CLI) | payer OTHER | LOC: LAB SHORT 15:59 → LAB 15:59 | DX: N30.90 Cystitis, unspecified without hematuria (principal) | CPT/HCPCS: 87086 ==

== ENCOUNTER 2024-11-21 19:51 | Emergency (ER) | payer OTHER ==
[~2024-11-21] VITALS: Ht 182.9 cm; Wt 147.4 kg
[2024-11-21 21:00] VITALS: BP 136/85
== END 2024-11-21 22:33 | disposition home or self-care (01) ==
LOC: ER 19:51
DX: Z43.0 Encounter for attention to tracheostomy (principal); I10 Essential (primary) hypertension; E11.9 Type 2 diabetes mellitus without complications; E66.01 Morbid (severe) obesity due to excess calories; E78.00 Pure hypercholesterolemia, unspecified; Z79.899 Other long term (current) drug therapy; Z87.891 Personal history of nicotine dependence
CPT/HCPCS: 99284-25

== ENCOUNTER → 2025-06-12 | Outpatient (CLI) | payer OTHER ==
[2025-06-12 14:24] LABS: BASOPHILS ABSOLUTE AUTO 0.04 K/mm3 (0.00-0.23); BASOPHILS PERCENT AUTO 1 % (0-2); EOSINOPHILS ABSOLUTE AUTO 0.50 K/mm3 (0.00-0.68); EOSINOPHILS PERCENT AUTO 7 % (0-6); Hematocrit 42.2 % (37.0-53.0); Hemoglobin 13.9 g/dL (13.5-17.5); IMMATURE GRAN ABSOLUTE AUTO 0.01 K/mm3 (0.00-0.10); IMMATURE GRAN PERCENT AUTO 0 % (0-1); LYMPHOCYTES ABSOLUTE AUTO 2.03 K/mm3 (0.84-5.20); LYMPHOCYTES PERCENT AUTO 26 % (21-46); MONOCYTES ABSOLUTE AUTO 0.82 K/mm3 (0.16-1.47); MONOCYTES PERCENT AUTO 11 % (4-13); Mean Corpuscular HGB Conc 32.9 g/dL (31.5-36.5); Mean Corpuscular Volume 92 fL (80-100); NEUTROPHILS ABSOLUTE AUTO 4.30 K/mm3 (1.96-9.15); NEUTROPHILS PERCENT AUTO 56 % (41-73); NRBC ABSOLUTE 0.00 K/mm3 (0.00-0.02); NRBC Auto 0.0 /100 WBC (0.0-0.2); Platelet Count 292 K/mm3 (150-400); RDW Coefficient Variation 13.6 % (11.7-14.2); RDW Standard Deviation 46.6 fL (35.1-46.3)
[2025-06-12 15:26] LABS: Alanine Aminotransfer (ALT/SGP 39 U/L (12-78); Albumin, Blood 3.7 g/dL (3.4-5.0); Albumin/Globulin Ratio 1.0 (0.8-1.8); Anion Gap 10 mmol/L (3-11); Aspartate Aminotrans (AST/SGOT 21 U/L (12-37); Bilirubin, Total 0.4 mg/dL (0.1-1.0); Blood Urea Nitrogen 22 mg/dL (8-24); CHOL/HDL RATIO 3.1; CO2, Blood 22 mmol/L (21-32); Calcium, Blood 9.0 mg/dL (8.5-10.1); Chloride, Blood 109 mmol/L (98-108); Cholesterol 150 mg/dL (50-200); Creatinine, Blood 1.06 mg/dL (0.60-1.20); Globulin, Blood 3.8 g/dL (2.2-4.0); Glucose, Blood 134 mg/dL (70-99); HDL Cholesterol 48 mg/dL (>39); LDL/HDL RATIO 1.7; Low Density Lipoprotein Chol 83 mg/dL (0-110); Potassium, Blood 4.0 mmol/L (3.5-5.5); Prostate Specific Antigen 0.617 ng/mL (0.000-4.000); Sodium, Blood 137 mmol/L (136-145); Thyroid Stimulating Hormone 2.980 uIU/mL (0.360-4.800); Total Protein, Blood 7.5 g/dL (6.4-8.2); Triglycerides 94 mg/dL (30-160); Very Low Density Lipoprot Chol 18 mg/dL (6-32)
[2025-06-12 15:37] LABS: Creatinine, Urine Random 312.0 mg/dL (27.00-270.00); Microalb/Creat Ratio UR, Rand 27.436 mg/g (0.000-30.000); Microalbumin, Random Urine 85.6 mg/L (0.000-20.000)
== END | disposition home or self-care (01) ==
LOC: LAB SHORT 08:45 → LAB 08:45
PROVIDERS: Nurse Practitioner Family
DX: Z12.5 Encounter for screening for malignant neoplasm of prostate (principal); I10 Essential (primary) hypertension
CPT/HCPCS: 80053; 80061; 82043; 82570; 83036; 83880; 84443; 85025; G0103

== ENCOUNTER → 2025-10-02 | Outpatient (CLI) | payer OTHER | END | disposition home or self-care (01) | LOC: LAB 10:53 → LAB SHORT 10:53 | DX: J39.8 Other specified diseases of upper respiratory tract (principal) | CPT/HCPCS: 87070; 87077; 87147; 87186; 87205 ==